=== PATIENT | male | born 1950 | race Caucasian/White ===

== ENCOUNTER 2018-08-03 01:20 | Emergency (ER) | payer MEDICARE, OTHER ==
[~2018-08-03] VITALS: Ht 190.5 cm; Wt 107.9 kg
[2018-08-03 01:39] LABS: BASO # 0.1 10^3/uL (0.0-0.2); BASO % 0.6 % (0.0-1.0); EOS # 1.5 10^3/uL (0.0-0.50); EOS % 10.2 % (0.0-3.0); HEMATOCRIT 34.6 % (42.0-52.0); HEMOGLOBIN 11.8 g/dl (13.5-17.5); LYMPH # 2.7 10^3/uL (1.5-4.5); LYMPH % 18.8 % (24.0-44.0); MEAN CORPUSCULAR HEMOGLOBIN 29.4 pg (27.0-33.0); MEAN CORPUSCULAR HGB CONC 34.1 g/dl (32.0-36.5); MEAN CORPUSCULAR VOLUME 86.1 fl (80.0-96.0); MONO # 1.3 10^3/uL (0.0-0.8); MONO % 8.8 % (0.0-5.0); NEUTROPHILS # 8.6 10^3/uL (1.8-7.7); NEUTROPHILS % 60.1 % (36.0-66.0); PLATELET COUNT, AUTOMATED 248 10^3/uL (150-450); RED BLOOD COUNT 4.02 10^6/uL (4.30-6.10); WHITE BLOOD COUNT 14.3 10^3/uL (4.0-10.0)
[2018-08-03] MEDS ORDERED: FERR325T3 PO (01:46)
[2018-08-03] MEDS ORDERED: DOXY-350 PO (01:46)
[2018-08-03] MEDS ORDERED: VITA200016 PO (01:46)
[2018-08-03] MEDS ORDERED: ECOT81TA5 PO (01:46)
[2018-08-03] MEDS ORDERED: HYDR12.55 PO (01:46)
[2018-08-03] MEDS ORDERED: PROTPAK PO (01:46)
[2018-08-03] MEDS ORDERED: GLIP10TA PO (01:46)
[2018-08-03] MEDS ORDERED: METF10004 PO (01:46)
[2018-08-03] MEDS ORDERED: SING10TA32 PO (01:46)
[2018-08-03] MEDS ORDERED: ALBU83IN INH (01:46)
[2018-08-03] MEDS ORDERED: NITR4TASL SL (01:46)
[2018-08-03] MEDS ORDERED: CRES10TA32 PO (01:46)
[2018-08-03] MEDS ORDERED: ALTA1CAP3 PO (01:46)
[2018-08-03 01:49] LABS: INR 1.02; PROTHROMBIN TIME 13.5 SECONDS (12.1-14.4)
[2018-08-03 01:51] LABS: D-DIMER QUANT 390.48 ng/ml (<500)
[2018-08-03] MEDS ORDERED: ISOVUE-370 76% 100ML VIAL (Q9967) As Ordered ONE (02:10)
[2018-08-03] MEDS ORDERED: fentaNYL 100 MCG/2 ML INJECTION (J3010) IV ONE (02:15)
[2018-08-03] MEDS ORDERED: hydrALAZINE INJ 20 MG/ML VIAL IV ONE (02:15)
[2018-08-03] MEDS ORDERED: NS 1,000 ML IV ONE (02:15)
[2018-08-03 02:40] LABS: ALBUMIN 3.4 GM/DL (3.2-5.2); ALT/SGPT 28 U/L (12-78); BILIRUBIN,TOTAL 0.3 MG/DL (0.2-1.0); BLOOD UREA NITROGEN 30 MG/DL (7-18); CALCIUM LEVEL 10.4 MG/DL (8.8-10.2); CARBON DIOXIDE LEVEL 25 MEQ/L (21-32); CHLORIDE LEVEL 96 MEQ/L (98-107); CPK CREATINE PHOSPHOKINASE 41 U/L (39-308); CREATININE FOR GFR 1.56 MG/DL (0.70-1.30); GLOMERULAR FILTRATION RATE 47.6 (>49); GLUCOSE, FASTING 344 MG/DL (70-100); LIPASE 254 U/L (73-393); MB/CK RELATIVE INDEX 3.41 (< OR =4); POTASSIUM SERUM 4.6 MEQ/L (3.5-5.1); SODIUM LEVEL 135 MEQ/L (136-145); TOTAL PROTEIN 7.3 GM/DL (6.4-8.2); TROPONIN I < 0.02 NG/ML (< 0.10)
--- NOTE | 2018-08-03 04:11 | REPVR ---
EXAM: CT Abdomen and Pelvis With Contrast EXAM DATE/TIME: 08/03/2018 2:03 AM CLINICAL HISTORY: 67 years old, male; Pain; Abdominal pain; Generalized; Additional info: Chest/abd pain, HX of aaa TECHNIQUE: Axial computed tomography images of the abdomen and pelvis with intravenous contrast. All CT scans at this facility use at least one of these dose optimization techniques: automated exposure control; mA and/or kV adjustment per patient size (includes targeted exams where dose is matched to clinical indication); or iterative reconstruction. Coronal and sagittal reformatted images were created and reviewed. MIP reconstructed images were created and reviewed. CONTRAST: 100 ml of iso administered intravenously. COMPARISON: CT ABD PELVIS W/O CONTRAST 04/10/2016 10:45 PM FINDINGS: Lower thorax: There is mild patchy ground glass opacity in the visualized lung bases, similar to the prior exam. There is patchy peripheral density and interstitial thickening anteriorly in both lung bases, without significant change from the prior exam. ABDOMEN: Liver: There are no focal liver lesions present. Gallbladder and bile ducts: The gallbladder is normal with no stones or biliary ductal dilation. Pancreas: The pancreas is normal with no ductal dilation. Spleen: The spleen demonstrates punctate calcifications, consistent with remote granulomatous organism exposure. Adrenals: The adrenal glands are normal. Kidneys and ureters: There is an exophytic 2.2 cm cyst at the left kidney midpole, unchanged. There is a 3.7 cm cyst left kidney lower pole, increased in size from 3.2 cm. Additional smaller cysts are seen in both kidneys. There are no ureteral stones or hydronephrosis. Stomach and bowel: Mild diverticulosis is present in the sigmoid and descending colon. There is no dilation or thickening of the colon. The small bowel appears unremarkable. Appendix: A normal appendix is identified. PELVIS: Bladder: The bladder is normal. Reproductive: The prostate gland and seminal vesicles are normal. ABDOMEN and PELVIS: Intraperitoneal space: There is no evidence of free intraperitoneal or pelvic fluid. There is no free intraperitoneal air. Bones/joints: Mild degenerative endplate changes are noted in the visualized spine. No suspicious osseous lesions. No acute fractures or dislocations. Soft tissues: Unremarkable. Vasculature: The aorta demonstrates severe atherosclerotic calcification. There is mild dilation of the abdominal aorta at the level of the renal arteries, measuring 3.0 cm which is unchanged. Just above the bifurcation, there is a second relative dilation with the aorta measuring 2.9 cm at this level, unchanged. Lymph nodes: No lymphadenopathy is seen. IMPRESSION: 1. Extensive atherosclerotic disease. 2 sites of mild dilation of the infrarenal abdominal aorta, measuring up to 3.0 cm, without significant change compared to 2016. 2. No acute abnormality identified. COMMENT: Consistent with the [employer]'s Incidental Findings Committee Report (J Am Lawanda Radiol 2010): Unless the patient's specific circumstances suggest otherwise, any liver lesion 0.5 cm or less, any cystic kidney lesion less than 1.0 cm, and/or any adrenal lesion 1.0 cm or less not otherwise characterized in this report as possessing suspicious or indeterminate imaging features is/are highly likely to be benign and do not require follow-up imaging or biopsy. Electronically signed by: Racheal Mcgarry On 08/03/2018 04:10:59 AM
[2018-08-03] MEDS ORDERED: GI COCKTAIL 50ML BTL(HYOSCYAMINE/MAALOX/LIDOCAINE VISCOUS)(1:3:1) PO ONE (04:15)
--- NOTE | 2018-08-03 04:18 | REPVR ---
EXAM: CT Angiography Chest With Contrast EXAM DATE/TIME: 08/03/2018 2:03 AM CLINICAL HISTORY: 67 years old, male; Pain; Chest pain; Type not specified; Additional info: Chest/abd pain, HX of aaa TECHNIQUE: Axial computed tomographic angiography images of the chest with intravenous contrast using CT angiography protocol. All CT scans at this facility use at least one of these dose optimization techniques: automated exposure control; mA and/or kV adjustment per patient size (includes targeted exams where dose is matched to clinical indication); or iterative reconstruction. Coronal and sagittal reformatted images were created and reviewed. MIP reconstructed images were created and reviewed. CONTRAST: 100 ml of iso administered intravenously. COMPARISON: CT ABD PELVIS W/O CONTRAST 04/10/2016 10:45:14 PM FINDINGS: Pulmonary arteries: The pulmonary arteries demonstrate mild central enlargement, consistent with mild pulmonary hypertension. The pulmonary trunk measures 3.4 cm in diameter. No filling defects are seen to indicate an acute pulmonary embolism. Aorta: The aorta demonstrates moderate atherosclerotic calcification. There is no thoracic aortic aneurysm or evidence of dissection. Lungs: There is mild paraseptal emphysema visible in the upper lobes. There is patchy ground glass opacity through the lung bases which may be due to air-trapping causing relative lucency or to a mild pneumonitis. The appearance is similar to the images of the chest from the CT scan of the abdomen and pelvis of March,. There are increased reticulations and mild peripheral density in the right middle lobe, inferior lingula, and anterolateral aspect of the right lower lobe at the lung bases, which are unchanged from the prior exam, and probably postinflammatory in nature. Pleural space: There are no pleural effusions present. Heart: The heart is normal in size. Lymph nodes: No lymphadenopathy is seen. Bones/joints: Mild degenerative endplate changes are noted in the visualized spine. No suspicious osseous lesions. No acute fractures or dislocations. Soft tissues: Unremarkable. IMPRESSION: 1. Atherosclerotic changes of the thoracic aorta, but no evidence of aortic aneurysm or dissection. 2. Mild paraseptal emphysema. Patchy groundglass opacity through the lung bases may be related to air trapping or mild pneumonitis, and appears similar to 2016. 3. Peripheral increased reticulations and mild peripheral density in both lung bases are unchanged, and probably postinflammatory in nature. 4. Mild enlargement of the central pulmonary arteries, consistent with mild pulmonary hypertension. Electronically signed by: Racheal Mcgarry On 08/03/2018 04:17:55 AM
[2018-08-03] MEDS ORDERED: SUCRALFATE 1 GM TAB PO ONE (05:15)
[2018-08-03] MEDS ORDERED: PANTOPRAZOLE 40MG INJ (PROTONIX) (C9113) IV ONE (05:15)
[2018-08-03] MEDS ORDERED: FAMOTIDINE INJ 20MG/2ML VIAL (S0028) IVP ONE (05:15)
[2018-08-03] MEDS ORDERED: MORPHINE 4 MG/ML 1ML VIAL/SYRINGE (J2270) IV PRN (05:15)
[2018-08-03 06:00] VITALS: BP 146/78
[2018-08-03] MEDS ORDERED: CARA1TAB6 PO (06:19)
[2018-08-03] MEDS ORDERED: PEPC1TAB5 PO (06:19)
--- NOTE | 2018-08-03 07:07 | ED PDOC ---
Post-Departure Follow-Up dr chavez faxed formal report of cta for fu mlg/. also ct abd/p for fu mlg Sushma Espinoza MD Aug 03, 2018 07:07
--- NOTE | 2018-08-03 20:05 | ECGEPIP ---
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
== END 2018-08-03 06:53 | disposition home or self-care (01) ==
LOC: M ED 01:20
DX: R10.13 Epigastric pain (principal); R93.1 Abnormal findings on diagnostic imaging of heart and coronary circulation; R91.8 Other nonspecific abnormal finding of lung field; I25.10 Atherosclerotic heart disease of native coronary artery without angina pectoris; E11.9 Type 2 diabetes mellitus without complications; I10 Essential (primary) hypertension; J44.9 Chronic obstructive pulmonary disease, unspecified; I71.4 Abdominal aortic aneurysm, without rupture; J30.2 Other seasonal allergic rhinitis; Z87.891 Personal history of nicotine dependence; Z79.84 Long term (current) use of oral hypoglycemic drugs; Z79.899 Other long term (current) drug therapy

== ENCOUNTER 2018-08-05 05:27 | Inpatient (IN) | payer MEDICARE, OTHER ==
[~2018-08-05] VITALS: Ht 190.5 cm; Wt 109.9 kg
[~2018-08-05 05:27] MED LIST: ALBU83IN INH; ALTA1CAP3 PO; CARA1TAB6 PO; CRES10TA32 PO; DOXY-350 PO; ECOT81TA5 PO; FERR325T3 PO; GLIP10TA PO; HYDR12.55 PO; METF10004 PO; NITR4TASL SL; PEPC1TAB5 PO; PROTPAK PO; SING10TA32 PO; VITA200016 PO
[2018-08-05 05:51] LABS: BASO # 0.1 10^3/uL (0.0-0.2); BASO % 0.5 % (0.0-1.0); EOS # 1.1 10^3/uL (0.0-0.50); EOS % 8.6 % (0.0-3.0); HEMATOCRIT 35.9 % (42.0-52.0); HEMOGLOBIN 12.1 g/dl (13.5-17.5); LYMPH % 15.1 % (24.0-44.0); MEAN CORPUSCULAR HGB CONC 33.7 g/dl (32.0-36.5); MEAN CORPUSCULAR VOLUME 86.1 fl (80.0-96.0); MONO # 1.2 10^3/uL (0.0-0.8); MONO % 9.1 % (0.0-5.0); NEUTROPHILS # 8.7 10^3/uL (1.8-7.7); NEUTROPHILS % 65.9 % (36.0-66.0); PLATELET COUNT, AUTOMATED 235 10^3/uL (150-450); RED BLOOD COUNT 4.17 10^6/uL (4.30-6.10); WHITE BLOOD COUNT 13.1 10^3/uL (4.0-10.0)
[2018-08-05 06:24] LABS: BLOOD UREA NITROGEN 23 MG/DL (7-18); CALCIUM LEVEL 9.7 MG/DL (8.8-10.2); CARBON DIOXIDE LEVEL 23 MEQ/L (21-32); CHLORIDE LEVEL 98 MEQ/L (98-107); CPK CREATINE PHOSPHOKINASE 29 U/L (39-308); CREATININE FOR GFR 1.35 MG/DL (0.70-1.30); GLOMERULAR FILTRATION RATE 56.3 (>49); GLUCOSE, FASTING 354 MG/DL (70-100); MB/CK RELATIVE INDEX 3.79 (< OR =4); POTASSIUM SERUM 4.6 MEQ/L (3.5-5.1); SODIUM LEVEL 131 MEQ/L (136-145); TROPONIN I < 0.02 NG/ML (< 0.10)
[2018-08-05] MEDS ORDERED: ONDANSETRON 4MG/2ML VIAL (J2405) IV ONE ×2 (07:15→16:45)
[2018-08-05] MEDS: MORPHINE 4 MG/ML 1ML VIAL/SYRINGE (J2270) IV PRN ×2 (07:20→10:31)
[2018-08-05] MEDS: NS 1,000 ML IV SCH ×3 (07:20→22:13)
[2018-08-05 07:28] LABS: ALBUMIN 3.5 GM/DL (3.2-5.2); ALT/SGPT 26 U/L (12-78); BILIRUBIN,DIRECT 0.1 MG/DL (0.0-0.2); BILIRUBIN,TOTAL 0.4 MG/DL (0.2-1.0); TOTAL PROTEIN 7.6 GM/DL (6.4-8.2)
[2018-08-05] MEDS: GASTROGRAFIN SOLUTION 30ML PO SCH ×2 (09:05→09:30)
[2018-08-05] MEDS ORDERED: ISOVUE-370 76% 100ML VIAL (Q9967) As Ordered ONE (10:04)
--- NOTE | 2018-08-05 10:51 | REP ---
Clinical: Acute chest pain and shortness of breath . Technique: Axial contrast enhanced images from the thoracic inlet to the upper abdomen using 100 ml Isovue 370 intravenous contrast material with coronal and sagittal re-formations. Findings: Suboptimal enhancement of the pulmonary vasculature is achieved, but no obvious filling defects are identified to suggest pulmonary embolus. Atherosclerotic changes to the thoracic aorta and coronary arteries noted without aortic aneurysm/dissection or cardiomegaly. No pericardial effusion. Bilateral lung barraza demonstrate mild, but increased patchy ground-glass opacities which may reflect elements of air trapping and early pneumonitis. No focal consolidation. Scattered chronic interstitial changes with minimal scattered scarring remains stable. No significant adenopathy. No pleural effusion. No pneumothorax. Impression: 1. No evidence for pulmonary embolus. 2. Patchy ground-glass opacities minimally increased from prior examination which may reflect early acute pneumonitis. 3. Chronic stable changes. Electronically Signed by Ramiro Michel MD 08/05/2018 10:42 A
--- NOTE | 2018-08-05 10:55 | REP ---
Clinical: Abdominal pain. Technique: Axial contrast enhanced images from the lung bases to the pubic symphysis using oral (per protocol) and 100 ml Isovue 370 intravenous contrast material with coronal and sagittal re-formations. Comparison: 08/03/2018 Findings: Lung bases demonstrate chronic interstitial changes and elements of scattered scarring / fibrosis with mild bronchiectasis and emphysematous change. Diffuse fatty infiltration to the liver noted. Chronic splenic parenchymal calcifications consistent with prior granulomas disease. Pancreas, bilateral adrenal glands and kidneys are relatively normal / stable. Bilateral renal cysts and mild chronic perinephric stranding remains unchanged. No hydronephrosis or nephrolithiasis. The gallbladder is moderately distended and mild pericholecystic stranding suggest the possibility of acute cholecystitis and correlation is recommended. The enteric system is without obstruction or acute inflammatory process. Moderate fecal stasis suggested. Normal terminal ileum and appendix identified in the right lower quadrant. Scattered colonic and sigmoid diverticulosis without acute diverticulitis. Pelvis demonstrates collapsed bladder and age appropriate prostate/seminal vesicles. No ascites. No obvious adenopathy. No free air. Atherosclerotic changes of the aorta and vasculature without aneurysm or dissection. Musculoskeletal structures intact. Impression: 1. Distended gallbladder with a mild pericholecystic stranding raises the possibility of acute cholecystitis and correlation is required. 2. Hepatic steatosis. 3. Diverticulosis without acute diverticulitis. 4. Further chronic stable changes as described above. Electronically Signed by Ramiro Michel MD 08/05/2018 10:45 A
[2018-08-05] MEDS: HYDROMORPHONE HCL 0.5 MG/ 0.5 ML SYRINGE (J1170 PER 1) IV PRN ×3 (12:10→22:38)
--- NOTE | 2018-08-05 12:28 | REP ---
Clinical: Right upper quadrant pain. Technique: Real time piña scale ultrasound examination using curved array transducer. Findings: The gallbladder is hydropic with mild wall thickening to approximately 4.5 mm and includes multiple gallstones and layering sludge. Sonographic Robledo's sign was not elicited and findings are compatible with acute cholecystitis. The common bile duct is dilated to 9.4 mm. Diffuse fatty infiltration to the liver noted without focal hepatic lesion. Pancreas is unremarkable. Right kidney is normal in reniform shape without hydronephrosis and measures 12.3 x 6.9 x 5.2 cm. No ascites. Impression: Findings most compatible with acute cholecystitis. Electronically Signed by Ramiro Michel MD 08/05/2018 12:20 P
[2018-08-05] MEDS ORDERED: PIPERACILLIN/TAZOBACTAM SOD 3.375 GM in D5W MINI-BAG PLUS 50 ML IV ONE (12:30)
[2018-08-05] MEDS ORDERED: PANT40TA3 PO (13:09)
[2018-08-05] MEDS ORDERED: GLIP1TAB51 PO (13:09)
[2018-08-05] MEDS ORDERED: VENTAER INH (13:09)
[2018-08-05] MEDS ORDERED: HYDR25TAB PO (13:09)
[2018-08-05] MEDS ORDERED: METF-839 PO (13:09)
[2018-08-05] MEDS ORDERED: PEPC1TAB5 PO (13:10)
[2018-08-05] MEDS ORDERED: HYDROMORPHONE HCL 0.5 MG/ 0.5 ML SYRINGE (J1170 PER 1) IV PRN (16:30)
--- NOTE | 2018-08-05 17:19 | REP ---
Clinical: Acute cholecystitis and extrahepatic biliary ductal dilatation. Technique: Standard noncontrast MRCP sequencing. Findings: Distended gallbladder with mild gallbladder wall thickening, pericholecystic stranding, and layering sludge is identified. Very subtle intraluminal filling defect(s) within the common bile duct cannot be excluded and may represent small amount of biliary sludge. The common bile duct is minimally dilated to 8 mm and there is no evidence for intrahepatic ductal dilatation. Simple appearing bilateral renal cysts measure up to 2 cm inferior pole right kidney and 3.4 cm inferior pole left kidney. Impression: Findings described above consistent with acute cholecystitis including small amount of intraluminal sludge suggested in the common bile duct. Electronically Signed by Ramiro Michel MD 08/05/2018 05:11 P
[2018-08-05] MEDS ORDERED: DEXTROSE 50% 50 ML SYRINGE IV PRN (19:30)
[2018-08-05] MEDS ORDERED: ONDANSETRON 4MG/2ML VIAL (J2405) IV PRN (19:30)
[2018-08-05] MEDS ORDERED: PROMETHAZINE INJ 25 MG/ML VIAL (J2550) IV PRN (19:30)
[2018-08-05] MEDS ORDERED: cefTRIAXone SOD 1 GM in D5W MINI-BAG PLUS 50 ML IV ONE (19:30)
[2018-08-05] MEDS ORDERED: GLUCAGON FOR INJ 1 MG VIAL (J1610) SC PRN (19:30)
[2018-08-05] MEDS ORDERED: ACETAMINOPHEN TAB 650MG DOSE (2X325MG) PO PRN (19:30)
[2018-08-05] MEDS ORDERED: METOCLOPRAMIDE INJ 10MG/2ML VIAL (J2765) IV PRN (19:30)
[2018-08-05] MEDS ORDERED: GLUCOSE 4 GM CHEW TABLET PO PRN (19:30)
[2018-08-05 22:00] VITALS: BP 152/70
[2018-08-05] MEDS: PIPERACILLIN/TAZOBACTAM SOD 3.375 GM in D5W MINI-BAG PLUS 50 ML IV SCH (22:21)
[2018-08-05] MEDS: HumaLOG INSULIN (NovoLOG) PER UNIT SC SCH (22:28)
[2018-08-05] MEDS: SUCRALFATE 1 GM TAB PO SCH ×2 (22:36→22:52)
[2018-08-05] MEDS: MONTELUKAST 10 MG TAB PO SCH (22:36)
[2018-08-05] MEDS: RAMIPRIL 5 MG CAP PO SCH (22:37)
[2018-08-05] MEDS: PANTOPRAZOLE 40MG INJ (PROTONIX) (C9113) IV SCH (23:21)
[2018-08-05] MEDS: IPRATROPIUM 0.5MG/ALBUTEROL 2.5MG INH SOL UD 3ML (DUONEB)(J7620) NEB SCH (23:44)
[2018-08-06] MEDS: PIPERACILLIN/TAZOBACTAM SOD 3.375 GM in D5W MINI-BAG PLUS 50 ML IV SCH ×4 (01:29→20:58)
[2018-08-06] MEDS: HumaLOG INSULIN (NovoLOG) PER UNIT SC SCH ×5 (01:30→17:37)
[2018-08-06 02:00] VITALS: BP 142/83
[2018-08-06] MEDS: NS 1,000 ML IV SCH ×3 (03:24→19:24)
[2018-08-06] MEDS: HYDROMORPHONE HCL 0.5 MG/ 0.5 ML SYRINGE (J1170 PER 1) IV PRN ×5 (03:43→22:05)
--- NOTE | 2018-08-06 05:42 | ECGEPIP ---
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
[2018-08-06 05:49] LABS: HEMATOCRIT 32.1 % (42.0-52.0); HEMOGLOBIN 10.6 g/dl (13.5-17.5); MEAN CORPUSCULAR HEMOGLOBIN 28.2 pg (27.0-33.0); MEAN CORPUSCULAR VOLUME 85.4 fl (80.0-96.0); PLATELET COUNT, AUTOMATED 199 10^3/uL (150-450); RED BLOOD COUNT 3.76 10^6/uL (4.30-6.10); WHITE BLOOD COUNT 13.7 10^3/uL (4.0-10.0)
[2018-08-06 06:00] VITALS: BP 118/63
[2018-08-06 06:15] LABS: BLOOD UREA NITROGEN 16 MG/DL (7-18); CALCIUM LEVEL 8.4 MG/DL (8.8-10.2); CARBON DIOXIDE LEVEL 25 MEQ/L (21-32); CHLORIDE LEVEL 98 MEQ/L (98-107); CREATININE FOR GFR 1.25 MG/DL (0.70-1.30); GLOMERULAR FILTRATION RATE > 60.0 (>49); GLUCOSE, FASTING 220 MG/DL (70-100); POTASSIUM SERUM 4.4 MEQ/L (3.5-5.1); SODIUM LEVEL 131 MEQ/L (136-145)
[2018-08-06 06:21] LABS: ALBUMIN 2.7 GM/DL (3.2-5.2); ALT/SGPT 153 U/L (12-78); BLOOD UREA NITROGEN 17 MG/DL (7-18); CALCIUM LEVEL 8.4 MG/DL (8.8-10.2); CARBON DIOXIDE LEVEL 24 MEQ/L (21-32); CHLORIDE LEVEL 99 MEQ/L (98-107); CREATININE FOR GFR 1.25 MG/DL (0.70-1.30); GLOMERULAR FILTRATION RATE > 60.0 (>49); GLUCOSE, FASTING 210 MG/DL (70-100); LIPASE 184 U/L (73-393); POTASSIUM SERUM 4.7 MEQ/L (3.5-5.1); SODIUM LEVEL 132 MEQ/L (136-145); TOTAL PROTEIN 6.4 GM/DL (6.4-8.2)
[2018-08-06] MEDS: MONTELUKAST 10 MG TAB PO SCH (07:52)
[2018-08-06] MEDS: PANTOPRAZOLE 40MG INJ (PROTONIX) (C9113) IV SCH (07:52)
[2018-08-06] MEDS: SUCRALFATE 1 GM TAB PO SCH ×4 (07:52→20:58)
[2018-08-06] MEDS: RAMIPRIL 5 MG CAP PO SCH (07:52)
[2018-08-06] MEDS: IPRATROPIUM 0.5MG/ALBUTEROL 2.5MG INH SOL UD 3ML (DUONEB)(J7620) NEB SCH ×4 (08:00→21:27)
[2018-08-06 10:00] VITALS: BP 125/82
--- NOTE | 2018-08-06 11:10 | HPE ---
DATE OF ADMISSION: 08/05/2018 CHIEF COMPLAINT: Right upper quadrant pain. BRIEF HISTORY OF PRESENT ILLNESS: The patient is a 67-year-old male who since early July has been having some right upper quadrant pain and difficulties with some occasional shortness of breath and also some gastrointestinal (GI) distress with some nausea at times, increasing reflux symptoms and from his standpoint was seen a couple days ago in the emergency room and was diagnosed with dyspepsia. The imaging at that time revealed no other significant abnormality and he was worked up from a respiratory standpoint given the pain in the right upper quadrant radiating to mostly he had described in the ribs when he was seen a few days ago and was difficult taking a deep breath in. The CAT scan was an angio of his chest and did reveal the gallbladder area and in retrospect I wonder if there is some minimal gallbladder wall thickening at that original visit. His white count was elevated at that time of 14,000 and he was treated empirically for some gastritis issues and GI distress. He returns 2 days later with persistence of that right sided pain but he notices that it is actually been getting worse. And he returns the emergency room without having any fevers or chills, but with persistence of that pain in the right upper quadrant and into his chest wall on the right-hand side. He essentially was admitted to the emergency room with chest symptoms. His white count is still elevated at 13,000 today. He has not had acholic stools. No bilirubinuria. No history of gallstone pancreatitis. However, with the workup of the gallbladder a gallbladder ultrasound was also performed that revealed a slightly dilated common bile duct and thus an MRCP was ordered. The MRCP showed thickening of the gallbladder wall and possible cholecystitis, however, there was some area and the distal common bile duct that it was hard to tell if there was some gravel or some debris in this area. His LFTs have been normal however, as well as his amylase, lipase. PAST MEDICAL HISTORY: Is significant for history of diabetes mellitus, history of tonsillectomy, history of aneurysm, history of chronic obstructive pulmonary artery disease (COPD), history of diabetes mellitus, diverticulitis, osteoarthritis, history of gastroesophageal reflux, history of hypercholesterolemia and hypertension. MEDICATIONS: Include: Albuterol, Pepcid, iron, glipizide, hydrochlorothiazide, nitroglycerin, pantoprazole, vitamin D, metformin and Crestor. PHYSICAL EXAM: Reveals a 67-year-old male who looks stated age. HEENT is unremarkable. Neck supple without adenopathy. Lungs are clear to auscultation without crackles, wheezes or rhonchi. Heart is regular without murmur. Abdomen is softly distended. He is tender with some guarding in the right upper quadrant with rebound. Extremities are warm, well-perfused. IMPRESSION AND PLAN: The patient has some right upper quadrant pain and tenderness all consistent with acute cholecystitis. Will keep him nothing by mouth, IV fluids, IV antibiotics and will see how he does over the ensuing 24 hours. From his standpoint will also get some liver function tests in the morning and if these LFTs are not elevated, then we will continue with antibiotic treatment. However, if they are elevated concerning for a common bile duct obstruction Dr. Leslie at [facility] stated that he would be glad to assist us with possibly proceeding with an ERCP/transfer to his service and we will get some followup labs in the morning and see where we are going with this. Otherwise the patient understands our next course of treatment at this time.
[2018-08-06 14:00] VITALS: BP 110/63
[2018-08-06 22:00] VITALS: BP 127/73
[2018-08-07] MEDS: HumaLOG INSULIN (NovoLOG) PER UNIT SC SCH ×4 (00:46→18:19)
[2018-08-07 02:00] VITALS: BP 126/78
[2018-08-07] MEDS: HYDROMORPHONE HCL 0.5 MG/ 0.5 ML SYRINGE (J1170 PER 1) IV PRN ×4 (02:36→21:53)
[2018-08-07] MEDS: NS 1,000 ML IV SCH ×3 (02:37→20:17)
[2018-08-07] MEDS: PIPERACILLIN/TAZOBACTAM SOD 3.375 GM in D5W MINI-BAG PLUS 50 ML IV SCH ×4 (02:37→20:17)
[2018-08-07 06:00] VITALS: BP 120/82
[2018-08-07 06:13] LABS: BASO % 0.1 % (0.0-1.0); EOS # 0.7 10^3/uL (0.0-0.50); EOS % 5.3 % (0.0-3.0); HEMATOCRIT 29.5 % (42.0-52.0); HEMOGLOBIN 9.7 g/dl (13.5-17.5); LYMPH # 1.5 10^3/uL (1.5-4.5); LYMPH % 11.8 % (24.0-44.0); MEAN CORPUSCULAR HEMOGLOBIN 28.8 pg (27.0-33.0); MEAN CORPUSCULAR HGB CONC 32.9 g/dl (32.0-36.5); MEAN CORPUSCULAR VOLUME 87.5 fl (80.0-96.0); MONO # 1.3 10^3/uL (0.0-0.8); MONO % 10.3 % (0.0-5.0); NEUTROPHILS # 8.8 10^3/uL (1.8-7.7); NEUTROPHILS % 71.9 % (36.0-66.0); PLATELET COUNT, AUTOMATED 177 10^3/uL (150-450); RED BLOOD COUNT 3.37 10^6/uL (4.30-6.10); WHITE BLOOD COUNT 12.2 10^3/uL (4.0-10.0)
[2018-08-07 06:40] LABS: ALBUMIN 2.4 GM/DL (3.2-5.2); ALT/SGPT 94 U/L (12-78); BILIRUBIN,TOTAL 0.8 MG/DL (0.2-1.0); BLOOD UREA NITROGEN 16 MG/DL (7-18); CALCIUM LEVEL 8.5 MG/DL (8.8-10.2); CARBON DIOXIDE LEVEL 24 MEQ/L (21-32); CHLORIDE LEVEL 103 MEQ/L (98-107); CREATININE FOR GFR 1.27 MG/DL (0.70-1.30); GLOMERULAR FILTRATION RATE > 60.0 (>49); GLUCOSE, FASTING 179 MG/DL (70-100); LIPASE 111 U/L (73-393); POTASSIUM SERUM 4.2 MEQ/L (3.5-5.1); SODIUM LEVEL 135 MEQ/L (136-145)
[2018-08-07] MEDS: IPRATROPIUM 0.5MG/ALBUTEROL 2.5MG INH SOL UD 3ML (DUONEB)(J7620) NEB SCH ×4 (07:19→20:37)
[2018-08-07] MEDS: MONTELUKAST 10 MG TAB PO SCH (07:43)
[2018-08-07] MEDS: SUCRALFATE 1 GM TAB PO SCH ×4 (07:43→20:17)
[2018-08-07] MEDS: RAMIPRIL 5 MG CAP PO SCH (07:43)
[2018-08-07] MEDS: PANTOPRAZOLE 40MG INJ (PROTONIX) (C9113) IV SCH (07:43)
[2018-08-07 10:00] VITALS: BP 140/72
[2018-08-07 14:00] VITALS: BP 160/77
--- NOTE | 2018-08-07 16:33 | IPN ---
DATE: 08/06/2018 HISTORY: The patient was admitted yesterday with findings and a history consistent with acute cholecystitis. The gallbladder was found to be thickened. was done because of an interpretation of this ultrasound as showing some mild enlargement of the common bile duct. Vaughn that he could not exclude possible, very subtle intraluminal filling defects in the common bile duct. Common bile duct was felt to be minimally dilated at 8 mm. His liver function tests yesterday however were normal. VITAL SIGNS: Show that the patient has been afebrile since admission. His pulse is in the 80s to low 90s. Blood pressure is in the normal range and his pulse oximetry on 2 liters of nasal cannula oxygen is normal. INTAKE AND OUTPUT: Is clearly not accurately recorded, though he does have adequate urine output noted. PHYSICAL EXAM: The patient is a very pleasant man lying quietly in the bed watching television. He is alert, oriented. He reports some discomfort still in the right upper quadrant, particularly with movement or cough. Heart exam shows a regular rate and rhythm. The lungs show distant breath sounds but are clear. The abdomen is not distended. He does have some bowel sounds present on auscultation. He has moderate direct tenderness in the right subcostal area about at the midclavicular line. The lower abdomen and left upper quadrant are without significant tenderness. LABORATORY STUDIES: Today show a white count of 14 with a hemoglobin of 11, hematocrit 32 and a platelet count 199,000. Chemistry profile shows a sodium of 132, potassium 4.7, chloride 99, CO2 of 24, BUN of 17, creatinine 1.25 and a glucose of 210. His total bilirubin is 1.0 with an AST of 193, ALT of 153 and an alkaline phosphatase 80. IMPRESSION: Patient has acute cholecystitis. There was a question of some minimal filling defects in the distal common bile duct. I reviewed the imaging myself and I am relatively underwhelmed by the finding. There is certainly not a definite stone and the ampule appears to taper fairly normally. He does have slight elevations of his AST and ALT today, though whether this is just from pericholecystic inflammation or represents debris in the common bile duct cannot be told. PLAN: The patient will be continued on his current antibiotic with piperacillin, tazobactam. He will be kept nothing by mouth for now with analgesics as necessary. We will reassess his laboratories in the morning. If his liver function tests are rising significantly, then an endoscopic retrograde cholangiopancreatography (ERCP) may be appropriate. If they remain at or below the number from today, then I believe we should treat this just as acute cholecystitis.
[2018-08-07 18:00] VITALS: BP 129/65
--- NOTE | 2018-08-07 18:13 | IPN ---
DATE: 08/07/2018 The patient's temperature has come down nicely. He really has not had any fevers any more, but unfortunately he is still using his pain medication and still complaining of pain. His white count has come down as well to 12.2 and his chemistries have come down as well with his AST, ALT down. Overall, he has had no nausea, no vomiting. His abdominal pain he states does not bother him unless he is moving, coughing, sneezing or actively getting up and moving around. He has not had any bowel movements. He has not had any significant shortness of breath, although he states he has been using the incentive spirometry and he has been doing well with that. He appears less short of breath than he was previously. IMPRESSION AND PLAN His abdomen is mill tender warm up on the right-hand side. I do believe that this is most likely cholecystitis. There still may have been some element of common bile duct stones but it is hard to know if these have passed on their own. I do feel starting him on some clear liquids is reasonable at this point. We will see what his LFTs do tomorrow and if he is making some good progress tomorrow will get him on a low-fat diet and then see if we can discharge him to home with plans on outpatient laparoscopic cholecystectomy He understands at this point as well that given his prolonged history with this cholecystitis and symptomatic biliary colic type of symptoms I anticipate that his gallbladder will probably be quite inflamed and adherent in there. He understands his risk of open operative intervention is higher given his history. At this point, we have discussed our current plan. He seems to be making progress. He looks better today and will start him on some clears and see how he does with this.
[2018-08-07] MEDS: DOCUSATE SODIUM 100 MG CAP PO SCH (20:16)
[2018-08-07 22:00] VITALS: BP 140/70
[2018-08-08] MEDS: HumaLOG INSULIN (NovoLOG) PER UNIT SC SCH ×4 (00:29→18:08)
[2018-08-08 02:00] VITALS: BP 142/83
[2018-08-08] MEDS: PIPERACILLIN/TAZOBACTAM SOD 3.375 GM in D5W MINI-BAG PLUS 50 ML IV SCH ×4 (02:09→20:47)
[2018-08-08] MEDS: HYDROMORPHONE HCL 0.5 MG/ 0.5 ML SYRINGE (J1170 PER 1) IV PRN ×3 (02:10→08:55)
[2018-08-08] MEDS: NS 1,000 ML IV SCH (05:55)
[2018-08-08 06:00] VITALS: BP 149/74
[2018-08-08 06:25] LABS: HEMATOCRIT 27.8 % (42.0-52.0); HEMOGLOBIN 9.1 g/dl (13.5-17.5); MEAN CORPUSCULAR HEMOGLOBIN 28.4 pg (27.0-33.0); MEAN CORPUSCULAR HGB CONC 32.7 g/dl (32.0-36.5); MEAN CORPUSCULAR VOLUME 86.9 fl (80.0-96.0); PLATELET COUNT, AUTOMATED 177 10^3/uL (150-450); WHITE BLOOD COUNT 11.1 10^3/uL (4.0-10.0)
[2018-08-08 07:22] LABS: ALBUMIN 2.3 GM/DL (3.2-5.2); ALT/SGPT 65 U/L (12-78); BILIRUBIN,TOTAL 0.8 MG/DL (0.2-1.0); BLOOD UREA NITROGEN 8 MG/DL (7-18); CALCIUM LEVEL 8.5 MG/DL (8.8-10.2); CARBON DIOXIDE LEVEL 24 MEQ/L (21-32); CHLORIDE LEVEL 103 MEQ/L (98-107); CREATININE FOR GFR 1.12 MG/DL (0.70-1.30); GLOMERULAR FILTRATION RATE > 60.0 (>49); GLUCOSE, FASTING 208 MG/DL (70-100); LIPASE 118 U/L (73-393); POTASSIUM SERUM 4.1 MEQ/L (3.5-5.1); SODIUM LEVEL 134 MEQ/L (136-145)
[2018-08-08] MEDS: IPRATROPIUM 0.5MG/ALBUTEROL 2.5MG INH SOL UD 3ML (DUONEB)(J7620) NEB SCH ×4 (07:44→21:19)
[2018-08-08] MEDS: PANTOPRAZOLE 40MG INJ (PROTONIX) (C9113) IV SCH (08:48)
[2018-08-08] MEDS: RAMIPRIL 5 MG CAP PO SCH (08:49)
[2018-08-08] MEDS: SUCRALFATE 1 GM TAB PO SCH ×4 (08:49→20:47)
[2018-08-08] MEDS: MONTELUKAST 10 MG TAB PO SCH (08:49)
[2018-08-08] MEDS: DOCUSATE SODIUM 100 MG CAP PO SCH ×2 (08:49→20:47)
[2018-08-08] MEDS ORDERED: PERCOCET 5MG/325MG TAB PO PRN (09:15)
[2018-08-08 10:00] VITALS: BP 139/67
[2018-08-08 14:00] VITALS: BP 134/69
[2018-08-08 18:00] VITALS: BP 149/73
--- NOTE | 2018-08-08 19:39 | IPN ---
DATE: 08/08/2018 The patient has had an episode of cholecystitis. Fortunately his liver function tests has come down nicely as white count is down a little bit more today. He states his pain is better as well today. He has had no fevers or chills. No nausea, no vomiting. He states his pain has been a little bit better today and more controlled. He has been on room air walking around and shortness of breath has been improving as well. 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 Patient has still an elevated white count it is hard to know if his white count was related to his cholecystitis, although all the reports have suggested mild cholecystitis and with his respiratory issues and when I looked at the CT scan he actually has some significantly diminished atelectasis and some fibrosis and on this right hand side. I am wondering if that is a component of his elevated white count as well. In any case he does have some wheezing at the bases, more so on the right than the left . IMPRESSION AND PLAN The patient has some slow but progressive improvement of his current situation. I do feel that it is reasonable to progress his diet probably tomorrow to a regular diet if he tolerates his regular diet that we will probably discharge him home on Sunday with antibiotics and follow up in a week or so with the plan for laparoscopic cholecystectomy as an outpatient. I do feel that since his respiratory issues have improved this also makes it much more reasonable for operative intervention/general anesthesia.
[2018-08-08 22:00] VITALS: BP 139/73
[2018-08-08] MEDS: PERCOCET 5MG/325MG TAB PO PRN (22:07)
[2018-08-09] VITALS (8 sets, daily range): BP systolic 116–148; BP diastolic 60–82
[2018-08-09] MEDS: HumaLOG INSULIN (NovoLOG) PER UNIT SC SCH ×4 (00:35→18:30)
[2018-08-09] MEDS: PIPERACILLIN/TAZOBACTAM SOD 3.375 GM in D5W MINI-BAG PLUS 50 ML IV SCH ×4 (02:40→20:26)
[2018-08-09] MEDS: PERCOCET 5MG/325MG TAB PO PRN ×3 (04:49→22:26)
[2018-08-09 06:13] LABS: HEMATOCRIT 29.1 % (42.0-52.0); HEMOGLOBIN 9.6 g/dl (13.5-17.5); MEAN CORPUSCULAR HEMOGLOBIN 28.3 pg (27.0-33.0); MEAN CORPUSCULAR VOLUME 85.8 fl (80.0-96.0); PLATELET COUNT, AUTOMATED 227 10^3/uL (150-450); RED BLOOD COUNT 3.39 10^6/uL (4.30-6.10); WHITE BLOOD COUNT 11.7 10^3/uL (4.0-10.0)
[2018-08-09 06:42] LABS: ALBUMIN 2.5 GM/DL (3.2-5.2); BILIRUBIN,TOTAL 1.1 MG/DL (0.2-1.0); CALCIUM LEVEL 9.2 MG/DL (8.8-10.2); CREATININE FOR GFR 1.3 MG/DL (0.70-1.30); GLOMERULAR FILTRATION RATE 58.8 (>49); POTASSIUM SERUM 3.9 MEQ/L (3.5-5.1); TOTAL PROTEIN 7.8 GM/DL (6.4-8.2)
[2018-08-09] MEDS: IPRATROPIUM 0.5MG/ALBUTEROL 2.5MG INH SOL UD 3ML (DUONEB)(J7620) NEB SCH ×4 (07:53→19:43)
[2018-08-09] MEDS: RAMIPRIL 5 MG CAP PO SCH (09:03)
[2018-08-09] MEDS: PANTOPRAZOLE 40MG INJ (PROTONIX) (C9113) IV SCH (09:05)
[2018-08-09] MEDS: SUCRALFATE 1 GM TAB PO SCH ×4 (09:05→20:26)
[2018-08-09] MEDS: DOCUSATE SODIUM 100 MG CAP PO SCH ×2 (09:21→20:27)
[2018-08-09] MEDS: MONTELUKAST 10 MG TAB PO SCH (09:22)
[2018-08-09] MEDS ORDERED: MOM 30ML SUSPENSION UDC PO ONE (11:30)
--- NOTE | 2018-08-09 11:30 | IPN ---
DATE: 08/09/2018 PROGRESS NOTE: The patient overall states that his abdominal pain is much better than it was yesterday. Now it feels much more like a pressure. Still has an elevated white count of 11.78, but overall he appears to be moving around a lot better in bed. He is not having any complaints from a gastrointestinal (GI) standpoint. No nausea, no vomiting and tolerating clear liquid diet. He has not had any bowel movements but continues to have some flatus. No nausea. His aspartate aminotransferase (AST) and alanine transaminase (ALT) have resolved and returned to normal. On his physical exam, the abdomen is softly distended. He has still some mild tenderness in the right upper quadrant but it is much better than it was previously and I feel as though we are making some progress at this time. IMPRESSION/PLAN: Patient is resolving his cholecystitis, and at this point, I would like to have him continue on IV antibiotics overnight and start him on a low-fat diet. If he tolerates this, plan on discharging him to home with oral antibiotics tomorrow with followup in a week or two in my office for reevaluation and discussion of outpatient laparoscopic cholecystectomy. He understands and will continue with current treatment at this time.
[2018-08-09] MEDS: HYDROMORPHONE HCL 0.5 MG/ 0.5 ML SYRINGE (J1170 PER 1) IV PRN (15:24)
[2018-08-10] MEDS: HumaLOG INSULIN (NovoLOG) PER UNIT SC SCH ×5 (00:22→23:20)
[2018-08-10] MEDS: HYDROMORPHONE HCL 0.5 MG/ 0.5 ML SYRINGE (J1170 PER 1) IV PRN (00:22)
[2018-08-10 01:53] VITALS: BP 134/78
[2018-08-10] MEDS: PIPERACILLIN/TAZOBACTAM SOD 3.375 GM in D5W MINI-BAG PLUS 50 ML IV SCH ×4 (02:55→20:24)
[2018-08-10] MEDS: PERCOCET 5MG/325MG TAB PO PRN ×3 (05:19→17:08)
[2018-08-10 06:00] VITALS: BP 169/89
[2018-08-10 06:52] LABS: HEMATOCRIT 27.5 % (42.0-52.0); MEAN CORPUSCULAR HEMOGLOBIN 28.8 pg (27.0-33.0); MEAN CORPUSCULAR HGB CONC 32.7 g/dl (32.0-36.5); MEAN CORPUSCULAR VOLUME 87.9 fl (80.0-96.0); PLATELET COUNT, AUTOMATED 222 10^3/uL (150-450); RED BLOOD COUNT 3.13 10^6/uL (4.30-6.10); WHITE BLOOD COUNT 7.6 10^3/uL (4.0-10.0)
[2018-08-10] MEDS: SUCRALFATE 1 GM TAB PO SCH ×4 (07:00→20:24)
[2018-08-10 07:05] LABS: ALBUMIN 2.1 GM/DL (3.2-5.2); ALT/SGPT 95 U/L (12-78); BILIRUBIN,TOTAL 1.5 MG/DL (0.2-1.0); BLOOD UREA NITROGEN 8 MG/DL (7-18); CALCIUM LEVEL 8.9 MG/DL (8.8-10.2); CARBON DIOXIDE LEVEL 25 MEQ/L (21-32); CHLORIDE LEVEL 101 MEQ/L (98-107); CREATININE FOR GFR 1.19 MG/DL (0.70-1.30); GLOMERULAR FILTRATION RATE > 60.0 (>49); GLUCOSE, FASTING 203 MG/DL (70-100); LIPASE 102 U/L (73-393); POTASSIUM SERUM 3.6 MEQ/L (3.5-5.1); SODIUM LEVEL 134 MEQ/L (136-145)
[2018-08-10] MEDS: IPRATROPIUM 0.5MG/ALBUTEROL 2.5MG INH SOL UD 3ML (DUONEB)(J7620) NEB SCH ×4 (07:42→18:28)
[2018-08-10] MEDS: PANTOPRAZOLE 40MG INJ (PROTONIX) (C9113) IV SCH (08:18)
[2018-08-10] MEDS: MONTELUKAST 10 MG TAB PO SCH (08:19)
[2018-08-10] MEDS: DOCUSATE SODIUM 100 MG CAP PO SCH ×2 (08:19→20:24)
[2018-08-10] MEDS: RAMIPRIL 5 MG CAP PO SCH (08:20)
[2018-08-10 10:00] VITALS: BP 141/79
--- NOTE | 2018-08-10 12:25 | IPNPDOC ---
Text Note Date of Service The patient was seen on 08/10/18. NOTE No acute events overnight. He did have some increase in abd pains yesterday afternoon with the soft diet, and was placed back on liquids. This am he feels much better, but is still having the same pains on the right side. No problems with fevers. Denies nausea, emesis, or weakness. VSSAF NAD abd - soft, TTP RUQ with localized guarding, no rebound, no generalized periton itis labs - below wbc - 11.7 >7.6 LFTs and bilirubin are all elevated A) 67y/o male with acute cholecystitis, and possible choledocholithiasis P) clq diet monitor labs for one more day if LFTs continue to elevate, then I will see about ERCP in house over the next couple days, otherwise I will have to transfer him will follow Earnest Grant DO VS,Myesha, I+O VS, Myesha, I+O Laboratory Tests 08/10/18 06:06 Red Blood Count 3.13 L, Mean Corpuscular Volume 87.9, Mean Corpuscular Hemoglobin 28.8, Mean Corpuscular Hemoglobin Concent 32.7, Red Cell Distribution Width 13.9, Calcium Level 8.9, Aspartate Amino Transf (AST/SGOT) 139 H, Alanine Aminotransferase (ALT/SGPT) 95 H, Alkaline Phosphatase 179 H, Total Bilirubin 1.5 H, Total Protein 7.0, Albumin 2.1 L Vital Signs Date Time Temp Pulse Resp B/P (MAP) Pulse Ox O2 Delivery O2 Flow Rate FiO2 08/10/18 11:57 18 08/10/18 10:00 96.6 80 141/79 (99) 92 Room Air 08/10/18 01:54 3.0 I&O- Last 24 Hours up to 6 AM 08/10/18 06:00 Intake Total 2236 ml Output Total 515 ml Balance 1721 ml BANG GRANT DO Aug 10, 2018 12:25
[2018-08-10 14:00] VITALS: BP 135/72
[2018-08-10 18:00] VITALS: BP 159/82
[2018-08-10 22:00] VITALS: BP 158/78
[2018-08-11] MEDS: PIPERACILLIN/TAZOBACTAM SOD 3.375 GM in D5W MINI-BAG PLUS 50 ML IV SCH ×2 (01:01→08:37)
[2018-08-11] MEDS: PERCOCET 5MG/325MG TAB PO PRN ×2 (01:02→08:29)
[2018-08-11 01:37] VITALS: BP 150/76
[2018-08-11 05:30] VITALS: BP 156/88
[2018-08-11] MEDS: HumaLOG INSULIN (NovoLOG) PER UNIT SC SCH (06:10)
[2018-08-11 06:29] LABS: HEMATOCRIT 28.8 % (42.0-52.0); HEMOGLOBIN 9.4 g/dl (13.5-17.5); MEAN CORPUSCULAR HEMOGLOBIN 28.5 pg (27.0-33.0); MEAN CORPUSCULAR HGB CONC 32.6 g/dl (32.0-36.5); MEAN CORPUSCULAR VOLUME 87.3 fl (80.0-96.0); PLATELET COUNT, AUTOMATED 261 10^3/uL (150-450); WHITE BLOOD COUNT 8.6 10^3/uL (4.0-10.0)
[2018-08-11 06:50] LABS: ALBUMIN 2.1 GM/DL (3.2-5.2); ALT/SGPT 71 U/L (12-78); BILIRUBIN,TOTAL 0.8 MG/DL (0.2-1.0); BLOOD UREA NITROGEN 7 MG/DL (7-18); CARBON DIOXIDE LEVEL 27 MEQ/L (21-32); CHLORIDE LEVEL 102 MEQ/L (98-107); CREATININE FOR GFR 1.13 MG/DL (0.70-1.30); GLOMERULAR FILTRATION RATE > 60.0 (>49); GLUCOSE, FASTING 192 MG/DL (70-100); LIPASE 88 U/L (73-393); POTASSIUM SERUM 3.9 MEQ/L (3.5-5.1); SODIUM LEVEL 135 MEQ/L (136-145)
[2018-08-11] MEDS: IPRATROPIUM 0.5MG/ALBUTEROL 2.5MG INH SOL UD 3ML (DUONEB)(J7620) NEB SCH (08:00)
[2018-08-11] MEDS: DOCUSATE SODIUM 100 MG CAP PO SCH (08:28)
[2018-08-11] MEDS: PANTOPRAZOLE 40MG INJ (PROTONIX) (C9113) IV SCH (08:28)
[2018-08-11] MEDS: MONTELUKAST 10 MG TAB PO SCH (08:28)
[2018-08-11] MEDS: SUCRALFATE 1 GM TAB PO SCH (08:28)
[2018-08-11 08:30] VITALS: BP 165/82
[2018-08-11] MEDS: RAMIPRIL 5 MG CAP PO SCH (08:30)
[2018-08-11 10:00] VITALS: BP 146/76
--- NOTE | 2018-08-11 10:18 | REP ---
Clinical: Shortness of breath . Comparison: None . Findings: The mediastinum and cardiac silhouette are stable and within normal limits for portable technique. The lung barraza without acute consolidation, effusion, or pneumothorax. Trace basilar atelectasis cannot be excluded. Skeletal structures are intact. Impression: Questionable left basilar atelectasis. Electronically Signed by Ramiro Michel MD 08/11/2018 10:09 A
[2018-08-11] MEDS ORDERED: PERCOCET PO (10:58)
== END 2018-08-11 11:30 | disposition home or self-care (01) | DRG 445 ==
LOC: M ED 05:27 → M ED INP 19:24 → M MSPAV 22:14 → M MS4PR 08-09 22:10
PROVIDERS: ADMIT Surgery; ATTEND Surgery
DX: K81.0 Acute cholecystitis (principal); J98.11 Atelectasis; I10 Essential (primary) hypertension; J44.9 Chronic obstructive pulmonary disease, unspecified; E11.9 Type 2 diabetes mellitus without complications; M19.90 Unspecified osteoarthritis, unspecified site; E78.00 Pure hypercholesterolemia, unspecified; Z79.899 Other long term (current) drug therapy; K57.30 Diverticulosis of large intestine without perforation or abscess without bleeding

== ENCOUNTER → 2018-08-19 | Outpatient (CLI) | payer MEDICARE, OTHER ==
[~2018-08-19] MED LIST changes: +GLIP10TA18 PO; +HYDR25TAB PO; +LEVA1TAB2 PO; +METF-839 PO; +PANT40TA3 PO; +PERCOCET PO; +VENTAER INH
[2018-08-19 13:35] LABS: HEMATOCRIT 36.5 % (42.0-52.0); HEMOGLOBIN 11.7 g/dl (13.5-17.5); MEAN CORPUSCULAR HEMOGLOBIN 27.9 pg (27.0-33.0); MEAN CORPUSCULAR HGB CONC 32.1 g/dl (32.0-36.5); MEAN CORPUSCULAR VOLUME 87.1 fl (80.0-96.0); PLATELET COUNT, AUTOMATED 437 10^3/uL (150-450); RED BLOOD COUNT 4.19 10^6/uL (4.30-6.10); WHITE BLOOD COUNT 13.2 10^3/uL (4.0-10.0)
[2018-08-19 13:44] LABS: ALBUMIN 3.2 GM/DL (3.2-5.2); BILIRUBIN,DIRECT 0.2 MG/DL (0.0-0.2); BILIRUBIN,TOTAL 0.3 MG/DL (0.2-1.0); TOTAL PROTEIN 8.1 GM/DL (6.4-8.2)
== END ==
LOC: M LAB 12:02
PROVIDERS: ATTEND Surgery
DX: K80.18 Calculus of gallbladder with other cholecystitis without obstruction (principal)

== ENCOUNTER → 2018-08-21 | Outpatient (CLI) | payer MEDICARE, OTHER ==
--- NOTE | 2018-08-21 11:17 | REP ---
Chest two views HISTORY: Cough Comparison: 08/11/2018 The lungs are clear. The heart is normal in size. The pulmonary vasculature is normal in appearance. The bony structure is intact. IMPRESSION: No acute disease. Electronically Signed by Lance Galaviz MD 08/21/2018 11:09 A
== END ==
LOC: M RAD 10:51
PROVIDERS: ATTEND Surgery
DX: R05 Cough (principal); Z87.01 Personal history of pneumonia (recurrent)

== ENCOUNTER 2018-08-23 10:36 | Observation (INO) | payer MEDICARE, OTHER ==
[~2018-08-23] VITALS: Ht 190.5 cm; Wt 104.9 kg
[~2018-08-23 10:36] MED LIST changes: -LEVA1TAB2 PO
[2018-08-23] MEDS ORDERED: LIDOCAINE 1% MDV 20ML VIAL As Ordered ONE (11:01)
[2018-08-23] MEDS ORDERED: NORCO, ANEXSIA 5/325MG TABLET (HYDROcodone/ACETAMINOPHEN) PO PRN (11:15)
[2018-08-23] MEDS ORDERED: GLUCOSE 4 GM CHEW TABLET PO PRN (11:15)
[2018-08-23] MEDS ORDERED: MORPHINE 4 MG/ML 1ML VIAL/SYRINGE (J2270) IV PRN (11:15)
[2018-08-23] MEDS ORDERED: IPRATROPIUM 0.5MG/ALBUTEROL 2.5MG INH SOL UD 3ML (DUONEB)(J7620) NEB PRN (11:15)
[2018-08-23] MEDS ORDERED: PROMETHAZINE INJ 25 MG/ML VIAL (J2550) IV PRN (11:15)
[2018-08-23] MEDS ORDERED: DEXTROSE 50% 50 ML SYRINGE IV PRN (11:15)
[2018-08-23] MEDS ORDERED: GLUCAGON FOR INJ 1 MG VIAL (J1610) SC PRN (11:15)
[2018-08-23] MEDS ORDERED: METOCLOPRAMIDE INJ 10MG/2ML VIAL (J2765) IV PRN (11:15)
[2018-08-23] MEDS ORDERED: ONDANSETRON 4MG/2ML VIAL (J2405) IV PRN (11:15)
[2018-08-23 14:00] VITALS: BP 130/81
[2018-08-23] MEDS ORDERED: D5W/LR 1,000 ML IV SCH (14:00)
[2018-08-23] MEDS: IPRATROPIUM 0.5MG/ALBUTEROL 2.5MG INH SOL UD 3ML (DUONEB)(J7620) NEB SCH ×2 (14:14→19:29)
[2018-08-23] MEDS ORDERED: LevoFLOXacin 500 MG TABLET PO ONE (15:00)
[2018-08-23] MEDS ORDERED: cefTRIAXone SOD 1 GM in D5W MINI-BAG PLUS 50 ML IV SCH (15:00)
[2018-08-23] MEDS: HumaLOG INSULIN (NovoLOG) PER UNIT SC SCH (18:35)
--- NOTE | 2018-08-23 19:03 | REP ---
ULTRASOUND-GUIDED CHOLECYSTOSTOMY DRAINAGE TUBE PLACEMENT The procedure was performed under the direct supervision of Dr. Rajan. The risks and benefits of the procedure were explained to the patient and informed consent was obtained. The gallbladder was localized using ultrasound guidance. The skin was prepped and draped in a sterile fashion. 1% lidocaine was used as a local anesthetic. Using ultrasound guidance and 8-[place] APDL catheter was inserted using trocar technique. 45 ml of purple colored fluid was withdrawn and sent to the lab for analysis. The catheter was affixed to the skin and a sterile dressing was applied. The catheter was connected to a gravity drainage bag. The patient tolerated the procedure well and there were no immediate complications. Reviewed by BONIFACIO Chowdary 08/23/2018 12:30 P Electronically Signed by Toñito Rajan MD 08/23/2018 06:55 P
[2018-08-23] MEDS: DOCUSATE SODIUM 100 MG CAP PO SCH (20:26)
[2018-08-23] MEDS: NORCO, ANEXSIA 5/325MG TABLET (HYDROcodone/ACETAMINOPHEN) PO PRN (20:28)
--- NOTE | 2018-08-23 20:30 | HPE ---
DATE OF ADMISSION: 08/23/2018 The patient was admitted on [facility] for a right upper quadrant pain, evidence of cholecystitis but also had bilateral lung infiltrates and a concerning possible pneumonia, had severe shortness of breath and essentially had an elevated white count of 13,000. He had no history of the acholic stools. No bilirubinuria. No gallstone pancreatitis. However, workup of the gallbladder revealed a dilated common bile duct and the magnetic resonance cholangiopancreatography (MRCP) showed some cholecystitis and a question of some gravel or debris within the ductal system. He was admitted for a few days and eventually his LFTs returned to normal and he made some big improvement. Since his discharge home after having this cholecystitis episode, he has had some persistent right upper quadrant pain, discomfort, had a white count that was elevated last week. And chest x-ray revealed no evidence of pneumonia, although had some pain with inspiration. Thus, I felt that it was probably ongoing cholecystitis and planned for a percutaneous drainage here today. PAST MEDICAL HISTORY: Significant for a history of diabetes mellitus, tonsillectomy, aneurysm, chronic obstructive pulmonary artery disease, diabetes mellitus, diverticulitis, osteoarthritis, history of gastroesophageal reflux disease, hypercholesterolemia, and hypertension. MEDICATIONS: Include albuterol, Pepcid, iron, glipizide, hydrochlorothiazide, nitroglycerin, pantoprazole, vitamin D, metformin, and Crestor. PHYSICAL EXAM: Reveals a 67-year-old male who looks stated age. HEENT is unremarkable. Neck: Supple without adenopathy. Lungs are clear to auscultation without crackles, wheezes or rhonchi. Heart is regular without murmur. Abdomen: Soft, nondistended, nontender. No guarding, no (dictation cut off). He has had a percutaneous drainage placed and is doing well with that drainage and states that his abdominal pain is completely resolved at this time. The drainage looks clear. There is not any significant inflammation. No evidence of infection from this. IMPRESSION/PLAN: The patient has evidence of right upper quadrant pain of undetermined etiology and with his elevated white count, it is concerning for ongoing cholecystitis. My impression at this point is that we will keep the cholecystostomy tube in, plan on seeing him next week, and plan on an outpatient cholangiogram to rule out any distal obstruction. If there is evidence of distal obstruction, he may need an endoscopic retrograde cholangiopancreatography (ERCP). But, we will see how he does overnight, make sure that he does not have any complications associated with his diabetic issues, his drain placement, i.e. hemorrhage, sepsis, etc. and then probable discharge in the morning.
[2018-08-23] MEDS ORDERED: HumaLOG INSULIN (NovoLOG) PER UNIT SC SCH (21:00)
[2018-08-23 22:00] VITALS: BP 131/88
[2018-08-24 02:00] VITALS: BP 128/86
[2018-08-24] MEDS: IPRATROPIUM 0.5MG/ALBUTEROL 2.5MG INH SOL UD 3ML (DUONEB)(J7620) NEB SCH ×2 (02:00→07:07)
[2018-08-24] MEDS: NORCO, ANEXSIA 5/325MG TABLET (HYDROcodone/ACETAMINOPHEN) PO PRN (04:07)
[2018-08-24 06:00] VITALS: BP 118/72
[2018-08-24] MEDS: HumaLOG INSULIN (NovoLOG) PER UNIT SC SCH ×2 (08:24→13:31)
[2018-08-24] MEDS: DOCUSATE SODIUM 100 MG CAP PO SCH (08:26)
[2018-08-24] MEDS ORDERED: PANTOPRAZOLE 40MG TAB (PROTONIX) PO SCH (09:00)
[2018-08-24] MEDS ORDERED: LEVA1TAB2 PO (11:50)
--- NOTE | 2018-08-24 11:54 | IPNPDOC ---
Subjective General Date/Time Seen The patient was seen on 08/24/18 at 11:51. Subject Chief Complaint/History The patient is a 67-year-old male admitted with a reason for visit of Cholecystitis. Patient feels a lot better after placement of cholecystotomy tube yesterday, tolerating diet. Denies any residual discomfort, nausea. Afebrile Current Medications Current Medications Current Medications Acetaminophen/ Hydrocodone Bitart ([place], Anexsia 5/325) 1 tab Q4HP PRN PO MODERATE PAIN (PS 5-7) Last administered on 08/24/18at 04:07; Start 08/23/18 at 11:15 Acetaminophen/ Hydrocodone Bitart ([place], Anexsia 5/325) 2 tab Q6HP PRN PO SEVERE PAIN (PS 8-10); Start 08/23/18 at 11:15 Albuterol/ Ipratropium (Duoneb (Ipr 0.5mg/Alb 2.5mg)) 3 ml Q2HP PRN NEB SOB/WH EEZING; Start 08/23/18 at 11:15 Albuterol/ Ipratropium (Duoneb (Ipr 0.5mg/Alb 2.5mg)) 3 ml RQ6H NEB Last administered on 08/24/18at 07:07; Start 08/23/18 at 14:00 Ceftriaxone Sodium 1 gm/ Dextrose 50 ml @ 100 mls/hr Q24H IV ; Start 08/23/18 at 15:00; Stop 08/23/18 at 15:00; Status DC Dextrose (Dextrose 50%) 25 ml ASDIRECTED PRN IV SEE LABEL COMMENTS; Start 08/23/18 at 11:15 Dextrose/Lactated Ringer's 1,000 ml @ 125 mls/hr Q8H IV ; Start 08/23/18 at 14:00; Stop 08/23/18 at 14:42; Status DC Docusate Sodium (Colace) 100 mg BID PO Last administered on 08/23/18at 20:26; Start 08/23/18 at 21:00 Glucagon (Glucagon) 1 mg ASDIRECTED PRN SC SEE LABEL COMMENTS; Start 08/23/18 at 11:15 Glucose (Glucose) 16 GM ASDIRECTED PRN PO SEE LABEL COMMENTS; Start 08/23/18 at 11:15 Insulin Human Lispro (HumaLOG INSULIN) SEE PROTOCOL TABLE AC SC Last administered on 08/24/18at 08:24; Start 08/23/18 at 17:30 Insulin Human Lispro (HumaLOG INSULIN) SEE PROTOCOL TABLE QHS SC ; Start 08/23/18 at 21:00 Metoclopramide HCl (REGLAN INJection) 10 mg Q6HP PRN IV NAUSEA OR VOMITING; Start 08/23/18 at 11:15 Morphine Sulfate (Morphine Sulfate Inj) 2 mg Q2HP PRN IV SEVERE PAIN (PS 8-10); Start 08/23/18 at 11:15; Stop 08/23/18 at 14:42; Status DC Ondansetron HCl (ZOFRAN INJection) 4 mg Q6HP PRN IV NAUSEA OR VOMITING; Start 08/23/18 at 11:15 Pantoprazole Sodium (Protonix) 40 mg DAILY PO Last administered on 08/24/18at 08:24; Start 08/24/18 at 09:00 Promethazine HCl (PHENERGAN INJection) 12.5 mg Q6HP PRN IV NAUSEA; Start 08/23/18 at 11:15 Allergies Coded Allergies: SEASONAL ALLERGIES (Verified Allergy, Unknown, 08/03/18) Objective Physical Examination Examination GENERAL APPEARANCE:comfortable. SKIN: Warm and moist. HEENT: Normocephalic, atraumatic. [place] palpebral conjunctiva, anicteric sclerae. Lips and mucosa appear moist. NECK: Supple, no thyromegaly. No obvious jugular venous distention. LUNGS: Clear to auscultation bilaterally. No wheezing appreciated. HEART: No chest wall abnormalities. Regular rate and rhythm with no murmurs appreciated. ABDOMEN: Abdomen is obese, soft, round. cholecystostomy tube with normal appearing bile in bag. Drain site dressings clean, dry. Nontender on palpation. EXTREMITIES: Extremities have no deformities. No edema identified. Vital Signs Vital Signs Date Time Temp Pulse Resp B/P (MAP) Pulse Ox O2 Delivery O2 Flow Rate FiO2 08/24/18 06:00 97.1 71 20 118/72 (87) 97 Room Air I&Os I&O- Last 24 Hours up to 6 AM 08/24/18 06:00 Intake Total 840 ml Output Total 0 ml Balance 840 ml Laboratory Data Labs 24H Laboratory Tests 2 08/23/18 17:05: Bedside Glucose (Misc Panel) 128H 08/23/18 20:23: Bedside Glucose (Misc Panel) 94 08/24/18 05:57: Bedside Glucose (Misc Panel) 257H 08/24/18 11:36: Bedside Glucose (Misc Panel) 240H Microbiology Microbiology 08/23/18 Anaerobic Culture, Received Pending 08/23/18 Gram Stain - Final, Resulted 08/23/18 Abscess Culture, Resulted Pending Impression Subacute Cholecystitis s/p percutaneous cholecystotomy tube diabetes OK to d/c home on levaquin Patient to follow with Dr. Torre next week Plan / VTE VTE Prophylaxis Ordered?: Yes CHILANGO MCKINNEY MD Aug 24, 2018 11:54
== END 2018-08-24 13:40 | disposition home or self-care (01) ==
LOC: M RADPRO 10:36 → M MS5PR 11:52
PROVIDERS: ADMIT Surgery; ATTEND Surgery
DX: K81.9 Cholecystitis, unspecified (principal); E11.9 Type 2 diabetes mellitus without complications; R06.02 Shortness of breath; J44.9 Chronic obstructive pulmonary disease, unspecified; K21.9 Gastro-esophageal reflux disease without esophagitis; I10 Essential (primary) hypertension; E78.00 Pure hypercholesterolemia, unspecified; Z79.51 Long term (current) use of inhaled steroids; Z79.84 Long term (current) use of oral hypoglycemic drugs; Z79.899 Other long term (current) drug therapy
CPT/HCPCS: 47490; 87070; 87075; 87077; 87186; 87205; 94640; G0378

== ENCOUNTER 2018-09-06 13:59 | Observation (INO) | payer MEDICARE, OTHER ==
[~2018-09-06] VITALS: Ht 190.5 cm; Wt 106.8 kg
[~2018-09-06 13:59] MED LIST changes: -CONRAY-43 43% 50ML VIAL (Q9960) As Ordered ONE; -IRON18TA PO; -JANU100T PO; -LEVO500T3 PO; -OXYC1TAB23 PO
[2018-09-06] MEDS ORDERED: NS 1,000 ML IV SCH ×2 (14:05→17:27)
[2018-09-06] MEDS: MORPHINE 4 MG/ML 1ML VIAL/SYRINGE (J2270) IV PRN ×2 (14:09→14:27)
[2018-09-06] MEDS ORDERED: ONDANSETRON 4MG/2ML VIAL (J2405) IV ONE ×2 (14:15→16:30)
[2018-09-06 14:19] LABS: HEMATOCRIT 36.1 % (42.0-52.0); HEMOGLOBIN 11.7 g/dl (13.5-17.5); MEAN CORPUSCULAR HEMOGLOBIN 27.9 pg (27.0-33.0); MEAN CORPUSCULAR HGB CONC 32.4 g/dl (32.0-36.5); PLATELET COUNT, AUTOMATED 263 10^3/uL (150-450); WHITE BLOOD COUNT 19.2 10^3/uL (4.0-10.0)
[2018-09-06 14:32] LABS: INR 1.11; PROTHROMBIN TIME 14.5 SECONDS (12.1-14.4)
[2018-09-06] MEDS: HYDROMORPHONE HCL 0.5 MG/ 0.5 ML SYRINGE (J1170 PER 1) IV PRN ×2 (14:36→15:08)
[2018-09-06 14:48] LABS: EOSINOPHILS 11 % (0-5); LYMPHOCYTES 23 % (16-52); MONOCYTES 2 % (0-8); NEUTROPHILS 64 % (35-75); PLATELET ESTIMATE NORMAL (NORMAL)
[2018-09-06 14:59] LABS: ALBUMIN 3.3 GM/DL (3.2-5.2); ALT/SGPT 24 U/L (12-78); BILIRUBIN,DIRECT < 0.1 MG/DL (0.0-0.2); BILIRUBIN,TOTAL 0.3 MG/DL (0.2-1.0); BLOOD UREA NITROGEN 12 MG/DL (7-18); CALCIUM LEVEL 9.5 MG/DL (8.8-10.2); CARBON DIOXIDE LEVEL 22 MEQ/L (21-32); CHLORIDE LEVEL 104 MEQ/L (98-107); CPK CREATINE PHOSPHOKINASE 24 U/L (39-308); CREATININE FOR GFR 1.29 MG/DL (0.70-1.30); GLOMERULAR FILTRATION RATE 59.3 (>49); GLUCOSE, FASTING 100 MG/DL (70-100); LIPASE 598 U/L (73-393); MB/CK RELATIVE INDEX 4.17 (< OR =4); POTASSIUM SERUM 3.7 MEQ/L (3.5-5.1); SODIUM LEVEL 139 MEQ/L (136-145); TOTAL PROTEIN 7.8 GM/DL (6.4-8.2); TROPONIN I < 0.02 NG/ML (< 0.10)
[2018-09-06] MEDS ORDERED: HYDROMORPHONE HCL 0.5 MG/ 0.5 ML SYRINGE (J1170 PER 1) As Ordered ONE (15:15)
[2018-09-06] MEDS ORDERED: LevoFLOXacin IV 750 MG in APPROPRIATE DILUENT 1 EA IV ONE (15:45)
[2018-09-06] MEDS ORDERED: DILUENT IV ONE (15:45)
[2018-09-06] MEDS ORDERED: NS IV ONE (15:45)
[2018-09-06 16:04] LABS: AMYLASE 82 U/L (25-115); C REACTIVE PROTEIN QUANTITATIV < 0.30 MG/DL (0.00-0.30)
[2018-09-06] MEDS ORDERED: IRON18TA PO (16:07)
[2018-09-06] MEDS ORDERED: JANU100T PO (16:07)
[2018-09-06] MEDS ORDERED: LEVO500T3 PO (16:07)
[2018-09-06] MEDS ORDERED: OXYC1TAB23 PO (16:08)
[2018-09-06] MEDS ORDERED: KETOROLAC 30 MG/ML VIAL (J1885) As Ordered ONE (16:27)
--- NOTE | 2018-09-06 16:28 | HPE ---
DATE OF ADMISSION: 09/06/2018 CHIEF COMPLAINT: Abdominal pain after cholecystostomy tube cholangiogram. BRIEF HISTORY OF PRESENT ILLNESS: The patient is a 67-year-old male who presented in July with some right upper quadrant pain evidence of cholecystitis. However, he had some liver function tests, dyspnea, chest pain and during his workup was evaluated and revealed some gallbladder wall thickening, elevated white count and was discharged home for his chest pain originally came back and with more consistent evidence of cholecystitis. However, his LFTs were significantly elevated and there was some questionable abnormality in the distal common bile duct. 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 The patient was discharged home and after he was discharged home he was seen in the office had an elevated white count and was still complaining of pain in this was over a week later and a cholecystostomy tube was placed return of bile without evidence of infection and his pain immediately resolved. Last week he was seen in the office in his cholecystostomy tube was clamped without difficulty and since that time he has been doing well until he was seen in the angio suite where he underwent fluoroscopy which revealed there may be some gravel or debris in the distal common bile duct and then developed significant epigastric pain all across his chest into his back and was brought to the emergency room for further evaluation. His workup thus far has been negative for any significant evidence of pancreatitis or gallstone pancreatitis. However, it sounds as though he obviously has a significant symptom given his cholangiogram. LABORATORY EXAMINATION: Revealed elevated white count 19,000. His liver function tests are within normal limits and his lipase is slightly elevated at 598. Initial reports suggested that he did not have pancreatitis although this is suggesting possible pancreatitis associated with gallstones or from the contrast itself. In any case, being admitted for pain control and plan for ERCP. PAST MEDICAL HISTORY: Significant for history of diabetes mellitus, history of tonsillectomy, history of aneurysm, history of chronic obstructive pulmonary disease, history of diabetes mellitus, diverticulosis, diverticulitis, osteoarthritis, history of GE reflux, history of his hypercholesterolemia, history of hypertension. MEDICATIONS: Medications include albuterol, Pepcid, iron, glipizide, hydrochlorothiazide, nitroglycerin, pantoprazole, vitamin D, metformin and Crestor. PHYSICAL EXAMINATION: Exam reveals a 67-year-old male who looks stated age. HEENT is unremarkable. Neck: Supple without adenopathy. Lungs: Clear to auscultation without crackles, wheezes or rhonchi. Heart is regular with a few irregular beats. Abdomen is soft, tender in the epigastric area in the right upper quadrant is his colostomy cholecystostomy tube in place with draining bile without significant abnormalities here. IMPRESSION AND PLAN: The patient has evidence of probable gallstone pancreatitis is most likely etiology or it can be just contrast induced pancreatitis, but with the suggestion of possible stones in the distal common bile duct. I have concerns that he may have more likely gallstone pancreatitis. Will get GI to evaluate him and make recommendations concerning ERCP. We will admit him to the floor and give him IV fluids, make him nothing by mouth and IV antibiotics. We will continue on an insulin sliding scale and keep him nothing by mouth overnight.
[2018-09-06] MEDS ORDERED: KETOROLAC 30 MG/ML VIAL (J1885) IV ONE (16:30)
[2018-09-06 17:18] LABS: INR 1.24; PARTIAL THROMBOPLASTIN TIME 26.1 SECONDS (25.4-37.6); PROTHROMBIN TIME 15.8 SECONDS (12.1-14.4)
[2018-09-06] MEDS ORDERED: PROMETHAZINE INJ 25 MG/ML VIAL (J2550) IV PRN (17:30)
[2018-09-06] MEDS ORDERED: PERCOCET 5MG/325MG TAB PO PRN (17:30)
[2018-09-06] MEDS ORDERED: HYDROMORPHONE HCL 0.5 MG/ 0.5 ML SYRINGE (J1170 PER 1) IV PRN (17:30)
[2018-09-06] MEDS ORDERED: METOCLOPRAMIDE INJ 10MG/2ML VIAL (J2765) IV PRN (17:30)
[2018-09-06] MEDS ORDERED: ONDANSETRON 4MG/2ML VIAL (J2405) IV PRN (17:30)
[2018-09-06] MEDS: HumaLOG INSULIN (NovoLOG) PER UNIT SC SCH (18:00)
[2018-09-06] MEDS ORDERED: GLUCOSE 4 GM CHEW TABLET PO PRN (20:30)
[2018-09-06] MEDS ORDERED: GLUCAGON FOR INJ 1 MG VIAL (J1610) SC PRN (20:30)
[2018-09-06] MEDS: DEXTROSE 50% 50 ML SYRINGE IV PRN ×2 (20:41→22:15)
[2018-09-06 22:00] VITALS: BP 145/75
[2018-09-06] MEDS: IPRATROPIUM 0.5MG/ALBUTEROL 2.5MG INH SOL UD 3ML (DUONEB)(J7620) NEB SCH (22:00)
[2018-09-06] MEDS: PIPERACILLIN/TAZOBACTAM SOD 3.375 GM in D5W MINI-BAG PLUS 50 ML IV SCH (22:15)
[2018-09-06] MEDS: RAMIPRIL 5 MG CAP PO SCH (22:16)
[2018-09-07] VITALS (9 sets, daily range): BP systolic 103–144; BP diastolic 59–80
[2018-09-07] MEDS: DEXTROSE 50% 50 ML SYRINGE IV PRN (00:32)
[2018-09-07] MEDS: D5W/LR 1,000 ML IV SCH ×2 (01:40→08:39)
[2018-09-07] MEDS: PIPERACILLIN/TAZOBACTAM SOD 3.375 GM in D5W MINI-BAG PLUS 50 ML IV SCH ×4 (04:37→21:08)
[2018-09-07] MEDS: HumaLOG INSULIN (NovoLOG) PER UNIT SC SCH ×5 (06:00→20:50)
[2018-09-07 07:17] LABS: HEMATOCRIT 28.9 % (42.0-52.0); MEAN CORPUSCULAR HGB CONC 31.5 g/dl (32.0-36.5); MEAN CORPUSCULAR VOLUME 88.9 fl (80.0-96.0); RED BLOOD COUNT 3.25 10^6/uL (4.30-6.10); WHITE BLOOD COUNT 9.7 10^3/uL (4.0-10.0)
[2018-09-07] MEDS: IPRATROPIUM 0.5MG/ALBUTEROL 2.5MG INH SOL UD 3ML (DUONEB)(J7620) NEB SCH ×4 (07:21→20:00)
[2018-09-07 07:27] LABS: HEMOGLOBIN 9.1 g/dl (13.5-17.5); PLATELET COUNT, AUTOMATED 150 10^3/uL (150-450)
[2018-09-07 07:41] LABS: ALBUMIN 2.9 GM/DL (3.2-5.2); BILIRUBIN,TOTAL 0.4 MG/DL (0.2-1.0); CALCIUM LEVEL 8.4 MG/DL (8.8-10.2); CREATININE FOR GFR 1.37 MG/DL (0.70-1.30); GLOMERULAR FILTRATION RATE 55.3 (>49); POTASSIUM SERUM 4.7 MEQ/L (3.5-5.1); TOTAL PROTEIN 6.2 GM/DL (6.4-8.2)
[2018-09-07] MEDS: PANTOPRAZOLE 40MG INJ (PROTONIX) (C9113) IV SCH (08:39)
[2018-09-07] MEDS: MONTELUKAST 10 MG TAB PO SCH (08:39)
[2018-09-07] MEDS: PERCOCET 5MG/325MG TAB PO PRN ×2 (08:40→17:17)
[2018-09-07] MEDS ORDERED: ISOVUE-300 61% 50ML VIAL (Q9967) As Ordered ONE (10:03)
[2018-09-07] MEDS ORDERED: ONDANSETRON 4MG/2ML VIAL (J2405) As Ordered ONE (10:36)
[2018-09-07] MEDS ORDERED: fentaNYL 100 MCG/2 ML INJECTION (J3010) As Ordered ONE (10:36)
[2018-09-07] MEDS ORDERED: ROCURONIUM BROMIDE 50 MG/5 ML VIAL As Ordered ONE (10:36)
[2018-09-07] MEDS ORDERED: MIDAZOLAM INJ 2 MG/2 ML VIAL (J2250) As Ordered ONE (10:36)
[2018-09-07] MEDS ORDERED: dexameTHASONE 4 MG/ML 1ML VIAL (J1100) As Ordered ONE (10:36)
[2018-09-07] MEDS ORDERED: LIDOCAINE 2% INJ 100 MG/5 ML SDV (FOR ANES.) As Ordered ONE (10:36)
[2018-09-07] MEDS ORDERED: PROPOFOL 200 MG/20 ML VIAL As Ordered ONE (10:36)
[2018-09-07] MEDS ORDERED: GLYCOPYRROLATE INJ 0.2 MG/ML 2 ML VIAL As Ordered ONE (11:22)
[2018-09-07] MEDS ORDERED: NEOSTIGMINE 10 MG/10 ML VIAL (J2710) As Ordered ONE (11:22)
[2018-09-07] MEDS ORDERED: PHENYLephrine HCL 500 MCG/5 ML (100MCG/ML) SYRINGE (J2370) As Ordered ONE (12:05)
[2018-09-07] MEDS ORDERED: SUCCINYLCHOLINE 100 MG/5 ML SYRINGE (J0330) As Ordered ONE (12:05)
--- NOTE | 2018-09-07 12:51 | ROOR ---
Patient Name: Serafin Collins Procedure Date: 09/07/2018 10:26 AM Date of : 1950 Age: 67 Room: Main OR Gender: Male Note Status: Finalized Procedure: ERCP Indications: Bile duct stone(s) Providers: James FIGUEROA MD Referring MD: 2. Inpatient 2. Inpatient Requesting Provider: Medicines: Monitored Anesthesia Care Complications: No immediate complications. Procedure: Pre-Anesthesia Assessment: - The heart rate, respiratory rate, oxygen saturations, blood pressure, adequacy of pulmonary ventilation, and response to care were monitored throughout the procedure. The Duodenoscope was introduced through the mouth, and advanced to the duodenum and used to inject contrast into the bile duct. The ERCP was accomplished without difficulty. The patient tolerated the procedure well. Findings: The human resources operations director film was normal. The esophagus was successfully intubated under direct vision. The scope was advanced to a normal major papilla in the descending duodenum without detailed examination of the pharynx, larynx and associated structures, and upper GI tract. The upper GI tract was grossly normal. A wire was passed into the ventral pancreatic duct. Superficial cannulation of and contrast injection into the ventral pancreatic duct was accomplished. Opacification of the entire pancreatic ductal system was successful. The entire opacified area was normal. A wire passed successfully into the entire biliary tree. The lower third of the main bile duct contained filling defect(s) thought to be a stone. Biliary sphincterotomy was made with a traction (standard) sphincterotome using ERBE electrocautery. There was no post-sphincterotomy bleeding. The biliary tree was swept with a 12 mm balloon starting at the bifurcation. One stone was removed. No stones remained. As the pancreatic duct was manipulated with a wire, a 5 F by 3 cm temporary plastic stent with a 3/4 external pigtail and no internal flaps was placed into the ventral pancreatic duct. The stent was in good position. Impression: - Choledocholithiasis was found. Complete removal was accomplished by biliary sphincterotomy and balloon sweep/extraction. - One temporary plastic stent was placed into the ventral pancreatic duct. Recommendation: - Observe patient's clinical course. - Watch for pancreatitis, bleeding, perforation, and cholangitis. - Surgical consultation for cholecystectomy at the next available appointment. - Perform a flat plate abdominal x-ray in 1 week. (to ascertain spontaneous passage of pancreatic stent). - Return to endoscopist for stent removal at I endoscopy PRN. James Figueroa MD James FIGUEROA MD 09/07/2018 12:51:08 PM This report has been signed electronically. Number of Addenda: 0 Note Initiated On: 09/07/2018 10:26 AM Estimated Blood Loss: Estimated blood loss: none.
--- NOTE | 2018-09-07 13:00 | REP ---
Clinical: ERCP. Technique: Intraoperative fluoroscopic imaging using portable C-arm technique. Findings: Multiple images from ERCP examination demonstrates a percutaneous cholecystostomy tube within the gallbladder. The common bile duct was cannulated and contrast administration demonstrates relatively normal appearance to the common bile duct, hepatic ducts and intrahepatic radicals. While relatively appropriate filling of the cystic duct and gallbladder were also noted, there appear to be filling defects in the proximal portion of the cystic duct which may cause partial obstruction and relative biliary colic. Final images demonstrate continued opacification of the common bile duct, cystic duct and intrahepatic ducts with lack of contrast opacification of the gallbladder suggesting possible decompression by the noted cholecystostomy tube. Total fluoroscopic time 2 minutes 32 seconds. Impression: Gallstones as well as small stones in the proximal cystic duct. Electronically Signed by Ramiro Michel MD 09/07/2018 12:52 P
[2018-09-07] MEDS ORDERED: fentaNYL 100 MCG/2 ML INJECTION (J3010) IV PRN (13:30)
[2018-09-07] MEDS ORDERED: PERCOCET 5MG/325MG TAB PO PRN (13:30)
[2018-09-07] MEDS ORDERED: LR 1,000 ML IV SCH ×2 (13:30→14:45)
[2018-09-07] MEDS ORDERED: ONDANSETRON 4MG/2ML VIAL (J2405) IV PRN (13:30)
[2018-09-07] MEDS: RAMIPRIL 5 MG CAP PO SCH (21:08)
[2018-09-08] VITALS (7 sets, daily range): BP systolic 117–147; BP diastolic 56–73
[2018-09-08] MEDS: PIPERACILLIN/TAZOBACTAM SOD 3.375 GM in D5W MINI-BAG PLUS 50 ML IV SCH ×3 (03:25→14:44)
[2018-09-08 06:01] LABS: BASO % 0.1 % (0.0-1.0); EOS # 0.2 10^3/uL (0.0-0.50); EOS % 2.4 % (0.0-3.0); HEMATOCRIT 29.7 % (42.0-52.0); HEMOGLOBIN 9.5 g/dl (13.5-17.5); LYMPH # 1.5 10^3/uL (1.5-4.5); LYMPH % 18.3 % (24.0-44.0); MEAN CORPUSCULAR HEMOGLOBIN 27.9 pg (27.0-33.0); MEAN CORPUSCULAR VOLUME 87.4 fl (80.0-96.0); MONO # 0.7 10^3/uL (0.0-0.8); MONO % 7.9 % (0.0-5.0); NEUTROPHILS # 5.8 10^3/uL (1.8-7.7); NEUTROPHILS % 70.6 % (36.0-66.0); PLATELET COUNT, AUTOMATED 154 10^3/uL (150-450); WHITE BLOOD COUNT 8.2 10^3/uL (4.0-10.0)
[2018-09-08 06:29] LABS: ALBUMIN 2.9 GM/DL (3.2-5.2); ALT/SGPT 17 U/L (12-78); BILIRUBIN,TOTAL 0.4 MG/DL (0.2-1.0); BLOOD UREA NITROGEN 13 MG/DL (7-18); CALCIUM LEVEL 8.8 MG/DL (8.8-10.2); CARBON DIOXIDE LEVEL 25 MEQ/L (21-32); CHLORIDE LEVEL 105 MEQ/L (98-107); CREATININE FOR GFR 1.25 MG/DL (0.70-1.30); GLOMERULAR FILTRATION RATE > 60.0 (>49); GLUCOSE, FASTING 143 MG/DL (70-100); LIPASE 400 U/L (73-393); SODIUM LEVEL 139 MEQ/L (136-145); TOTAL PROTEIN 6.8 GM/DL (6.4-8.2)
--- NOTE | 2018-09-08 07:16 | IPN ---
DATE OF SERVICE: 09/07/2018 HISTORY: The patient is a gentleman who was admitted over a month ago with gallbladder issues. He had ultimately a cholecystostomy tube placed. He was having a gallbladder study done on the and developed severe pain with injection of contrast through the cholecystostomy tube. He was noted to have a filling defect in the distal common bile duct. He was admitted by Dr. Torre and today he underwent an ERCP by Dr. Figueroa. A papillotomy was performed with removal of a stone and a temporary stent was placed in the ventral pancreatic duct. The patient was started on some clear liquids following the procedure. He has done quite well and feels very comfortable at present. Vital signs: Show that he has been afebrile today. Pulse is in the 60s to 80s and his blood pressure is normal with a normal room air sat. Intake and output shows that yesterday he had 3100 in with only 200 out. Today he has tolerated almost a liter of oral fluids that are recorded and his urine output has been 1500 mL. He had 375 mL of bile out through his cholecystostomy tube. PHYSICAL EXAMINATION: The patient is lying quietly in bed watching TV. He is alert and comfortable. Heart exam shows a regular rhythm. The abdomen is soft and nontender. He has a drain in the right side of the abdomen putting bile into a bile bag. Laboratory studies from this morning prior to the ERCP showed a white count of 10, hemoglobin 9, hematocrit of 29 and platelet count of 150,000. Chemistry profile showed a sodium of 140, potassium 4.7, chloride 107, CO2 of 24, BUN of 19, creatinine 1.4 and glucose of 104. Liver function tests were normal with a lipase back to normal at 159. IMPRESSION: The patient has done well following the ERCP with removal of the common bile duct stone. His cholecystostomy tube is draining some clear bile. PLAN: The patient has tolerated some clear liquids and I will consider advancing his diet tomorrow in the morning. He probably does not require the antibiotics he is on right now but I will also continue these until tomorrow. I will recheck his labs in the morning and stop his IV fluid.
[2018-09-08] MEDS: HumaLOG INSULIN (NovoLOG) PER UNIT SC SCH ×4 (07:30→21:00)
[2018-09-08] MEDS: IPRATROPIUM 0.5MG/ALBUTEROL 2.5MG INH SOL UD 3ML (DUONEB)(J7620) NEB SCH ×4 (08:25→19:30)
--- NOTE | 2018-09-08 09:03 | ECGEPIP ---
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
[2018-09-08] MEDS: PANTOPRAZOLE 40MG INJ (PROTONIX) (C9113) IV SCH (10:05)
[2018-09-08] MEDS: MONTELUKAST 10 MG TAB PO SCH (10:05)
[2018-09-08] MEDS: RAMIPRIL 5 MG CAP PO SCH (21:24)
[2018-09-08] MEDS: glipiZIDE XL 5 MG TABCR PO SCH (21:24)
[2018-09-09 02:00] VITALS: BP 134/69
[2018-09-09 06:00] VITALS: BP 155/78
[2018-09-09] MEDS: HumaLOG INSULIN (NovoLOG) PER UNIT SC SCH (08:06)
[2018-09-09] MEDS: glipiZIDE XL 5 MG TABCR PO SCH (08:07)
[2018-09-09] MEDS: MONTELUKAST 10 MG TAB PO SCH (08:08)
[2018-09-09] MEDS: IPRATROPIUM 0.5MG/ALBUTEROL 2.5MG INH SOL UD 3ML (DUONEB)(J7620) NEB SCH ×2 (08:14→10:55)
--- NOTE | 2018-09-09 08:37 | IPN ---
DATE: 09/08/2018 HISTORY: The patient was admitted with a common bile duct stone and underwent a ERCP yesterday by Dr. Figueroa. A definite stone was removed and a temporary pancreatic duct stent was placed. The patient has a cholecystostomy tube which is still draining clear green bile. He was started on some clear liquids yesterday. Vital signs: Show that the patient has been afebrile over the past 24 hours. His pulses in the 70s and 80s and his blood pressure is good with a normal room air oxygen saturation. Intake and output yesterday showed 1700 in with 2200 out. His cholecystostomy tube drained 675 mL yesterday. PHYSICAL EXAMINATION: The patient is lying quietly on the hospital bed. He is alert and oriented. Sclerae are anicteric. Mucous membranes are moist. Heart exam shows a regular rhythm and the lungs are clear. The abdomen is soft and without significant tenderness. He has his drain in the right upper quadrant which is draining clear bile. Laboratory studies today show a white count of 8, hemoglobin of 10, hematocrit of 30 and a platelet count of 154,000. Differential count show 71% neutrophils, 18% lymphocytes and 8% monocytes. Chemistry profile shows normal electrolytes, BUN, creatinine and a glucose of 143. Liver function tests are normal. Lipase is seven points above the normal upper limit at 400. IMPRESSION: The patient is doing very well since removal of his common bile duct stone. PLAN: I spoke with Dr. Torre today about whether he would be interested in trying to move the patient's surgery up to operate before he went home and he is concerned about possible scarring from his gallbladder inflammation from July. At this point he plans to leave him on his current schedule of September 24. The patient will be advanced to a low-fat diet and his IV will be saline locked. If the patient looks well in the morning I anticipate Dr. Torre will discharge him to followup for his surgery.
[2018-09-09] MEDS ORDERED: PANTOPRAZOLE 40MG TAB (PROTONIX) PO SCH (09:00)
[2018-09-09] MEDS ORDERED: hydroCHLOROthiazide 25 MG TAB PO SCH (09:00)
[2018-09-09 10:00] VITALS: BP 135/77
--- NOTE | 2018-09-10 20:40 | ECGEPIP ---
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
[2018-09-13] MEDS ORDERED: iron PO (13:13)
[2018-09-13] MEDS ORDERED: HYDR-3713 PO (13:13)
== END 2018-09-09 12:45 | disposition home or self-care (01) ==
LOC: M ED 13:59 → M ED INP 17:27 → M MS5PR 22:04
PROVIDERS: ADMIT Surgery; ATTEND Surgery
DX: K80.50 Calculus of bile duct without cholangitis or cholecystitis without obstruction (principal); R93.2 Abnormal findings on diagnostic imaging of liver and biliary tract; E11.9 Type 2 diabetes mellitus without complications; I10 Essential (primary) hypertension; J44.9 Chronic obstructive pulmonary disease, unspecified; R79.1 Abnormal coagulation profile; E78.5 Hyperlipidemia, unspecified; Z79.84 Long term (current) use of oral hypoglycemic drugs; Z79.899 Other long term (current) drug therapy
CPT/HCPCS: 36415; 43262; 43264; 43274; 47531; 76000; 80048; 80053; 80076; 82150; 82550; 82553; 83605; 83690; 84484; 85025; 85027; 85610; 85730; 86140; 86850; 86900; 86901; 87040; 93005; 93041; 94640; 96361; 96365; 96375; 96376; 99285; C1887; C2625; C9113; G0378; J0330; J1100; J1170; J1885; J1956; J2250; J2270; J2370; J2405; J2543; J2710; J3010; Q9960; Q9967

== ENCOUNTER → 2018-09-06 | Outpatient (CLI) | payer MEDICARE, OTHER ==
[~2018-09-06] MED LIST changes: +CONRAY-43 43% 50ML VIAL (Q9960) As Ordered ONE; +IRON18TA PO; +JANU100T PO; +LEVA1TAB2 PO; +LEVO500T3 PO; +OXYC1TAB23 PO
--- NOTE | 2018-09-06 16:33 | REP ---
CHOLANGIOGRAM The procedure was performed under the personal supervision of Dr. Rajan. The images were reviewed with Dr. Rajan. The patient had a percutaneous cholecystostomy tube placed on 08/23/2018. 50 ml of Conray 43 was injected into the existing catheter. Images demonstrate filling of the gallbladder, common bile duct and biliary tree. At the very end of the injection the patient experienced an extreme obtained. The gallbladder was immediately decompressed of contrast. The the patient continue to have pain. Dr. Torre was notified at the time of the procedure. The patient was sent to the ER. 0.6 minutes of fluoroscopy time was utilized for this procedure. Reviewed by BONIFACIO Chowdary 09/06/2018 03:46 P Electronically Signed by Toñito Rajan MD 09/06/2018 04:23 P
== END ==
LOC: M RADPRO 13:04
PROVIDERS: ATTEND Surgery
DX: K81.9 Cholecystitis, unspecified (principal)

== ENCOUNTER → 2018-09-23 | Outpatient (CLI) | payer MEDICARE, OTHER ==
[~2018-09-23] MED LIST changes: +HYDR-3713 PO; +IRON18TA PO; +JANU100T PO; +LEVO500T3 PO; +OXYC1TAB23 PO; +iron PO
--- NOTE | 2018-09-23 14:20 | REP ---
Supine abdomen single AP view: There is a pigtail catheter in the abdominal right upper quadrant. There appears to be a second drainage catheter projected over the right kidney. This could be artifact from gowning or clothing. No other radiopaque foreign bodies are identified. There was reportedly a pancreatic stent placed at [facility]. No Stent is identified in the visualized upper abdomen or within the visualized bowel loops. The bowel gas pattern is normal. Impression: Drainage catheters on the right as described. No other radiopaque foreign bodies are identified. Electronically Signed by Jose Fonseca MD 09/23/2018 02:11 P
== END ==
LOC: M RAD 11:54
PROVIDERS: ATTEND Internal Medicine Gastroenterology
DX: T18.3XXA Foreign body in small intestine, initial encounter (principal); Z96.89 Presence of other specified functional implants; Y99.8 Other external cause status; Y92.89 Other specified places as the place of occurrence of the external cause; Y93.89 Activity, other specified

== ENCOUNTER 2018-09-24 06:29 | Day surgery (SDC) | payer MEDICARE, OTHER ==
[~2018-09-24] VITALS: Ht 190.5 cm; Wt 103.9 kg
[2018-09-24] MEDS ORDERED: ceFAZolin SOD 1 GM in D5W MINI-BAG PLUS 50 ML IV ONE (07:00)
[2018-09-24] MEDS ORDERED: LR 1,000 ML IV ONE (07:00)
[2018-09-24] MEDS ORDERED: ONDANSETRON 4MG/2ML VIAL (J2405) As Ordered ONE (07:40)
[2018-09-24] MEDS ORDERED: MIDAZOLAM INJ 2 MG/2 ML VIAL (J2250) As Ordered ONE (07:40)
[2018-09-24] MEDS ORDERED: METOCLOPRAMIDE INJ 10MG/2ML VIAL (J2765) As Ordered ONE (07:40)
[2018-09-24] MEDS ORDERED: fentaNYL 100 MCG/2 ML INJECTION (J3010) As Ordered ONE ×3 (07:40→11:07)
[2018-09-24] MEDS ORDERED: LIDOCAINE 2% INJ 100 MG/5 ML SDV (FOR ANES.) As Ordered ONE (07:40)
[2018-09-24] MEDS ORDERED: ROCURONIUM BROMIDE 50 MG/5 ML VIAL As Ordered ONE (07:40)
[2018-09-24] MEDS ORDERED: PROPOFOL 200 MG/20 ML VIAL As Ordered ONE (07:40)
[2018-09-24] MEDS ORDERED: HumaLOG INSULIN (NovoLOG) PER UNIT SC ONE (08:10)
[2018-09-24] MEDS ORDERED: HumaLOG INSULIN (NovoLOG) PER UNIT As Ordered ONE (08:18)
[2018-09-24] MEDS ORDERED: CONRAY-60 60% 50ML VIAL (Q9961) As Ordered ONE (08:26)
[2018-09-24] MEDS ORDERED: BUPIVACAINE/EPIN 0.25% 30 ML VIAL As Ordered ONE (08:26)
[2018-09-24] MEDS ORDERED: GLUCAGON FOR INJ 1 MG VIAL (J1610) As Ordered ONE (08:27)
[2018-09-24] MEDS ORDERED: HYDROmorphone HCL 2 MG/ML 1ML VIAL (J1170) As Ordered ONE (10:35)
[2018-09-24] MEDS ORDERED: SUGAMMADEX SODIUM 500 MG/5 ML VIAL (BRIDION) As Ordered ONE (10:35)
[2018-09-24] MEDS ORDERED: LABETALOL HCL 100 MG/20 ML VIAL As Ordered ONE (10:35)
[2018-09-24] MEDS ORDERED: NORCO, ANEXSIA 5/325MG TABLET (HYDROcodone/ACETAMINOPHEN) As Ordered ONE (11:07)
--- NOTE | 2018-09-24 11:08 | RO ---
DATE OF PROCEDURE: 09/24/2018 PREOPERATIVE DIAGNOSIS: Recurrent episodes of cholecystitis with cholecystostomy tube placement previously. POSTOPERATIVE DIAGNOSIS: Recurrent episodes of cholecystitis with cholecystostomy tube placement previously. PROCEDURE: Laparoscopic cholecystectomy. SURGEON: Jerman Torre MD METAL FINISH INSPECTOR: Dr. White (Dr. White provided assistance with abdominal wall closure, gallbladder retraction and visualization of the gallbladder and dissection). ESTIMATED BLOOD LOSS: 50 mL. FLUIDS: Crystalloid. BRIEF PROCEDURE SUMMARY: The patient was brought to the operating, was given general anesthesia. After adequate anesthesia and preoperative antibiotics were given, the patient was prepped and draped in the usual sterile fashion. Next, a periumbilical incision was made with skin knife. The patient had a small umbilical hernia that I used as the trocar site and placed the 10 mm trocar at the umbilicus, insufflated to 15 mm of pressure. A dilating 5 mm and right upper quadrant 5 mm trocars were placed. There were some adhesions that were of the liver up against the abdominal wall. These were taken down. Omentum to the gallbladder was taken down with hook cautery as well, and eventually the gallbladder was able to be grasped, retracted superiorly and then eventually the neck of the gallbladder was visualized. The thickened peritoneum throughout this area was then taken down and eventually the neck of the gallbladder was cleared of thickened peritoneum. Laterally working myself on the posterior aspect I was able to get around almost three-quarters of the way with some blunt dissection as well as the peanut dissector, [place], etc. with slow dissection throughout this area. Then, on the medial side, the artery was seen and was able to be mobilized quite nicely and from the cystic duct itself. This was clipped after creating a window behind the neck of the gallbladder. Once this was performed, then even better visualization behind the neck of the gallbladder was appreciated. I did have to work my way down to the cystic duct and there was a small vessel, probably about 2 mm that was crossing over and up to the cystic duct itself. This was clipped and then it was better visualized posterior to the neck of the gallbladder nature I was able to get it dissected out enough so that I could visualize the cystic duct circumferentially. Then, the gallbladder was transected at the gallbladder neck/cystic duct junction and the gallbladder was taken from the gallbladder bed using electrocautery. I did enter into the gallbladder and the gallbladder was suctioned completely dry. Once this was removed in an Endo Catch bag, the right upper quadrant was copiously irrigated until clear. Good hemostasis was achieved in this area, but because of the amount of dissection that was performed I did use some Bhavana, placed this in the bed of the dissection over the area of artery and the cystic duct which was clean and dry. Then, all trocars removed under direct visualization. #0 Vicryl was used to close the fascia at the umbilicus. #4-0 Vicryl was used to close all incisions and a dry sterile was applied. The patient was awakened from his anesthesia, brought to the room awake, alert and hemodynamically stable. HARLEY
[2018-09-24] MEDS: fentaNYL 100 MCG/2 ML INJECTION (J3010) IV PRN ×2 (11:10→11:15)
[2018-09-24] MEDS ORDERED: MORPHINE 4 MG/ML 1ML VIAL/SYRINGE (J2270) IV PRN (11:15)
[2018-09-24] MEDS ORDERED: LR 1,000 ML IV SCH ×2 (11:15)
[2018-09-24] MEDS ORDERED: ONDANSETRON 4MG/2ML VIAL (J2405) IV PRN ×2 (11:15)
[2018-09-24] MEDS ORDERED: NORCO, ANEXSIA 5/325MG TABLET (HYDROcodone/ACETAMINOPHEN) PO PRN ×2 (11:15)
[2018-09-24] MEDS ORDERED: ALBUTEROL SULFATE 2.5 MG/0.5 ML INH NEB SOLN As Ordered ONE (11:19)
[2018-09-24] MEDS ORDERED: ALBUTEROL SULFATE 2.5 MG/0.5 ML INH NEB SOLN INH ONE (11:30)
[2018-09-24] MEDS ORDERED: PROMETHAZINE INJ 25 MG/ML VIAL (J2550) As Ordered ONE (11:49)
[2018-09-24] MEDS ORDERED: PROMETHAZINE INJ 25 MG/ML VIAL (J2550) IV ONE (12:00)
[2018-09-24 14:00] VITALS: BP 159/77
== END 2018-09-24 14:19 | disposition home or self-care (01) ==
LOC: M SDC 06:29
PROVIDERS: ATTEND Surgery
DX: K81.2 Acute cholecystitis with chronic cholecystitis (principal); E11.9 Type 2 diabetes mellitus without complications; R07.9 Chest pain, unspecified; G47.30 Sleep apnea, unspecified; J44.9 Chronic obstructive pulmonary disease, unspecified; I10 Essential (primary) hypertension; I71.4 Abdominal aortic aneurysm, without rupture; K21.9 Gastro-esophageal reflux disease without esophagitis; F41.9 Anxiety disorder, unspecified; Z79.51 Long term (current) use of inhaled steroids; Z79.84 Long term (current) use of oral hypoglycemic drugs; Z79.899 Other long term (current) drug therapy
CPT/HCPCS: 47562; 88304; J0690; J1170; J2250; J2405; J2765; J3010

== ENCOUNTER 2019-08-24 11:30 | Emergency (ER) | payer MEDICARE, OTHER ==
[~2019-08-24] VITALS: Ht 190.5 cm; Wt 108.0 kg
[~2019-08-24 11:30] MED LIST changes: +CRES10TA PO; -CRES10TA32 PO
[2019-08-24 12:30] LABS: BASO % 0.3 % (0.0-1.0); EOS # 1.5 10^3/uL (0.0-0.5); EOS % 13.3 % (0.0-3.0); HEMATOCRIT 36.1 % (42.0-52.0); HEMOGLOBIN 11.5 g/dl (13.5-17.5); LYMPH # 2.4 10^3/uL (1.5-5.0); LYMPH % 20.8 % (24.0-44.0); MEAN CORPUSCULAR HEMOGLOBIN 28.2 pg (27.0-33.0); MEAN CORPUSCULAR HGB CONC 31.9 g/dl (32.0-36.5); MEAN CORPUSCULAR VOLUME 88.5 fl (80.0-96.0); MONO # 0.9 10^3/uL (0.0-0.8); MONO % 7.5 % (0.0-5.0); NEUTROPHILS # 6.6 10^3/uL (1.5-8.5); NEUTROPHILS % 57.5 % (36.0-66.0); PLATELET COUNT, AUTOMATED 279 10^3/uL (150-450); RED BLOOD COUNT 4.08 10^6/uL (4.30-6.10); WHITE BLOOD COUNT 11.6 10^3/uL (4.0-10.0)
--- NOTE | 2019-08-24 12:51 | REP ---
Right lower extremity Duplex Doppler venous ultrasound: Real time compression and duplex Doppler interrogation of the right lower extremity deep venous system is performed. The right common femoral, superficial femoral and popliteal veins are fully compressible with transducer pressure and demonstrate normal spontaneous and phasic flow, without evidence of deep venous thrombosis. Impression: No evidence of deep venous thrombosis of the right lower extremity femoral popliteal venous system. Electronically Signed by Jose Amos MD 08/24/2019 12:42 P
[2019-08-24 12:59] LABS: ERYTHROCYTE SEDIMENTATION RATE 65 mm/hr (0-20)
[2019-08-24 13:02] LABS: BLOOD UREA NITROGEN 17 MG/DL (7-18); C REACTIVE PROTEIN QUANTITATIV 1.44 MG/DL (0.00-0.30); CALCIUM LEVEL 9.2 MG/DL (8.8-10.2); CARBON DIOXIDE LEVEL 27 MEQ/L (21-32); CHLORIDE LEVEL 102 MEQ/L (98-107); CREATININE FOR GFR 1.27 MG/DL (0.70-1.30); GLOMERULAR FILTRATION RATE > 60.0 (>49); GLUCOSE, FASTING 133 MG/DL (70-100); POTASSIUM SERUM 4.5 MEQ/L (3.5-5.1); SODIUM LEVEL 136 MEQ/L (136-145); URIC ACID 7.8 MG/DL (3.5-7.2)
[2019-08-24] MEDS ORDERED: COLCHICINE 0.6 MG TAB PO ONE ×2 (13:45→14:45)
--- NOTE | 2019-08-24 14:15 | REP ---
RIGHT FOOT SERIES: Four views of the right foot are performed. No acute fracture or dislocation is seen. There is moderate inferior and posterior calcaneal spurring. There is mild diffuse narrowing of interphalangeal joints. IMPRESSION: Calcaneal spurring without evidence of acute fracture, dislocation, or intrinsic bone disease. Electronically Signed by Jose Amos MD 08/25/2019 05:51 P
[2019-08-24] MEDS ORDERED: COLC1TAB13 PO (14:30)
[2019-08-24 14:45] VITALS: BP 142/67
== END 2019-08-24 14:48 | disposition home or self-care (01) ==
LOC: M ED 11:30
DX: M10.071 Idiopathic gout, right ankle and foot (principal); E11.40 Type 2 diabetes mellitus with diabetic neuropathy, unspecified; I71.4 Abdominal aortic aneurysm, without rupture; E11.9 Type 2 diabetes mellitus without complications; I10 Essential (primary) hypertension; E78.5 Hyperlipidemia, unspecified; J44.9 Chronic obstructive pulmonary disease, unspecified; J45.909 Unspecified asthma, uncomplicated; K21.9 Gastro-esophageal reflux disease without esophagitis; K57.32 Diverticulitis of large intestine without perforation or abscess without bleeding; F41.9 Anxiety disorder, unspecified; K22.70 Barrett's esophagus without dysplasia; Z87.891 Personal history of nicotine dependence; M77.31 Calcaneal spur, right foot; Z79.84 Long term (current) use of oral hypoglycemic drugs; Z79.899 Other long term (current) drug therapy; Z88.8 Allergy status to other drugs, medicaments and biological substances; J30.2 Other seasonal allergic rhinitis

== ENCOUNTER 2021-01-21 11:07 | Observation (INO) | payer MEDICARE, OTHER ==
[~2021-01-21 11:07] MED LIST changes: +COLC0.6T47 PO; +HYDR-3490 PO; -HYDR25TAB PO; +PANT40TA29 PO; -PANT40TA3 PO
[2021-01-21] MEDS ORDERED: NS 500 ML IV ONE (11:20)
[2021-01-21] MEDS ORDERED: ISOVUE-370 76% 100ML VIAL As Ordered ONE (11:25)
[2021-01-21 11:42] LABS: BASO % 0.4 % (0.0-1.0); EOS # 1.2 10^3/uL (0.0-0.5); EOS % 12.6 % (0.0-3.0); HEMATOCRIT 36.2 % (42.0-52.0); HEMOGLOBIN 11.8 g/dl (13.5-17.5); LYMPH # 2.2 10^3/uL (1.5-5.0); LYMPH % 23.8 % (24.0-44.0); MEAN CORPUSCULAR HEMOGLOBIN 28.9 pg (27.0-33.0); MEAN CORPUSCULAR HGB CONC 32.6 g/dl (32.0-36.5); MEAN CORPUSCULAR VOLUME 88.7 fl (80.0-96.0); MONO # 0.8 10^3/uL (0.0-0.8); MONO % 8.3 % (2.0-8.0); NEUTROPHILS % 54.5 % (36.0-66.0); PLATELET COUNT, AUTOMATED 253 10^3/uL (150-450); RED BLOOD COUNT 4.08 10^6/uL (4.30-6.10); WHITE BLOOD COUNT 9.2 10^3/uL (4.0-10.0)
[2021-01-21 11:46] LABS: VENOUS BASE EXCESS -1.5 (-2.0-2.0); VENOUS O2 SATURATION 63.2 % (60.0-80.0); VENOUS PARTIAL PRESSURE CO2 38.2 mmHg (38.0-50.0); VENOUS PARTIAL PRESSURE O2 31.5 mmHg (30.0-50.0); VENOUS PH 7.398 UNITS (7.330-7.430); VENOUS STANDARD HCO3 22.5 MEQ/L; VENOUS TOTAL CO2 24.2 MEQ/L (24.0-28.0)
[2021-01-21 11:55] LABS: PROTHROMBIN TIME 13.4 SECONDS (12.5-14.3)
[2021-01-21 11:56] LABS: PARTIAL THROMBOPLASTIN TIME 25.2 SECONDS (24.2-38.5)
[2021-01-21 11:58] LABS: D-DIMER QUANT 511.38 ng/ml (<500)
--- NOTE | 2021-01-21 12:02 | REP ---
INDICATION: Syncope/fall- r/o pe COMPARISON: 08/05/2018 the latest prior TECHNIQUE: CT angiography of the chest attention pulmonary arteries after the intravenous administration of 100 cc Isovue 370 FINDINGS: There is excellent visualization of the pulmonary arterial vasculature. There are no focal filling defects present that would be considered consistent with acute pulmonary emboli. The thoracic aorta is within normal limits. There is no mediastinal or hilar adenopathy. There are no pleural or pericardial effusions. The imaged upper abdomen is within normal limits. The imaged osseous structures are stable. Evaluation of the lung barraza shows stable appearing chronic changes without evidence of a new abnormal nodule, mass, or opacity. There is cylindrical bronchiectasis and some evidence of early honeycomb lung formation particularly on the right. IMPRESSION: There is no evidence of acute disease. Other findings, as described above, which may require further follow-up. <Electronically signed by Lee Kaur > 01/21/21 [id number]
--- NOTE | 2021-01-21 12:05 | REP ---
INDICATION: Syncope/near-syncope. COMPARISON: 08/21/2018. TECHNIQUE: Single portable AP view of the chest was performed. FINDINGS: There is no acute infiltrate or pulmonary edema. Lungs are clear. The heart is not significantly enlarged. The mediastinal silhouette is unremarkable. The visualized osseous structures are intact. IMPRESSION: No acute pulmonary disease. <Electronically signed by Jose Amos > 01/21/21 1209
--- NOTE | 2021-01-21 12:08 | REP ---
INDICATION: Syncope/fall. COMPARISON: Multiple the latest 08/05/2018 TECHNIQUE: Standard helical technique after the intravenous administration of 100 cc Isovue 370. No oral bowel preparatory contrast was administered prior to the exam. FINDINGS: The patient is status post cholecystectomy since the last exam. The liver, spleen, pancreas, and adrenal glands are within normal limits. There are multiple bilateral stable appearing renal cysts. No abnormal renal enhancement has developed since the last exam. There is no significant change in appearance of the abdominal aorta or para-regions. The bowel loops and the mesenteries are essentially unchanged. There is stable appearing colonic diverticulosis. There is no free fluid or free air. There is no evidence of a mass or adenopathy. Bone window technique throughout the examination shows the osseous structures to be stable. IMPRESSION: There is no evidence of acute intra-abdominal or intrapelvic disease. Findings as described above. <Electronically signed by Lee Kaur > 01/21/21 1632
--- NOTE | 2021-01-21 12:13 | REPVR ---
PROCEDURE INFORMATION: Exam: CT Cervical Spine Without Contrast Exam date and time: 01/21/2021 11:36 AM Age: 70 years old Clinical indication: Injury or trauma; Fall; Blunt trauma; Additional info: Syncope/fall TECHNIQUE: Imaging protocol: Computed tomography images of the cervical spine without contrast. Radiation optimization: All CT scans at this facility use at least one of these dose optimization techniques: automated exposure control; mA and/or kV adjustment per patient size (includes targeted exams where dose is matched to clinical indication); or iterative reconstruction. COMPARISON: No relevant prior studies available. FINDINGS: Bones/joints: There is 2 mm of grade 1 anterolisthesis of C2 with respect to C3. Normal vertebral body alignment is otherwise preserved. Vertebral body heights are within normal limits. Discs/Spinal canal/Neural foramina: No significant disc protrusion. No severe spinal canal stenosis. No significant neural foraminal narrowing. Sinuses: There is a small air-fluid level within the right sphenoid sinus. Lungs: Lung apices are normal. Soft tissues: Unremarkable. IMPRESSION: No acute fracture. Electronically signed by: Rosario Perry On 01/21/2021 12:12:46 PM
[2021-01-21] MEDS ORDERED: FERR1TAB8 PO (12:14)
[2021-01-21] MEDS ORDERED: SITA50TAB PO (12:14)
[2021-01-21] MEDS ORDERED: D31000TA2 PO (12:14)
--- NOTE | 2021-01-21 12:19 | REPVR ---
PROCEDURE INFORMATION: Exam: CT Head Without Contrast Exam date and time: 01/21/2021 11:36 AM Age: 70 years old Clinical indication: Injury or trauma; Fall; Blunt trauma (contusions or hematomas); Additional info: Syncope/fall TECHNIQUE: Imaging protocol: Computed tomography of the head without contrast. Radiation optimization: All CT scans at this facility use at least one of these dose optimization techniques: automated exposure control; mA and/or kV adjustment per patient size (includes targeted exams where dose is matched to clinical indication); or iterative reconstruction. COMPARISON: No relevant prior studies available. FINDINGS: Brain: There is no acute intracranial hemorrhage or mass effect. Moderate diffuse volume loss is within the range of normal for patient age. There are small vessel ischemic changes within the periventricular and subcortical white matter, but the normal piña-white matter delineation is maintained. Cerebral ventricles: Prominence of the ventricular system is commensurate with volume loss. Paranasal sinuses: There is a small air-fluid level within the right sphenoid sinus. Mastoid air cells: Visualized mastoid air cells are well aerated. Bones/joints: Unremarkable. No acute fracture. Soft tissues: Unremarkable. IMPRESSION: No acute hemorrhage or calvarial fracture. Electronically signed by: Rosario Perry On 01/21/2021 12:19:00 PM
[2021-01-21 13:09] LABS: BLOOD UREA NITROGEN 21 MG/DL (7-18); CARBON DIOXIDE LEVEL 25 mmol/L (20-29); CHLORIDE LEVEL 102 MEQ/L (98-107); CREATININE FOR GFR 1.32 MG/DL (0.70-1.30); GLOMERULAR FILTRATION RATE 57.3 (>49); GLUCOSE, FASTING 167 MG/DL (70-100); POTASSIUM SERUM 4.5 MEQ/L (3.5-5.1); SODIUM LEVEL 136 MEQ/L (136-145)
[2021-01-21 13:10] LABS: CALCIUM LEVEL 9.7 MG/DL (8.8-10.2); CK-MB VALUE MASS 1.4 NG/ML (<3.6); CPK CREATINE PHOSPHOKINASE 56 U/L (39-308); ETHYL ALCOHOL (ETHANOL) < 0.003 % (0.000-0.010); MAGNESIUM LEVEL 2.1 MG/DL (1.8-2.4); TROPONIN I < 0.02 NG/ML (< 0.10)
[2021-01-21] MEDS ORDERED: COMBIVENT RESPIMAT 100-20MCG INHALER 4GM INH ONE (13:20)
[2021-01-21 13:30] LABS: FREE T4 1.19 NG/DL (0.76-1.46)
[2021-01-21] MEDS ORDERED: dexameTHASONE 20MG/5ML VIAL (J1100 PER 1MG) IV ONE (13:30)
[2021-01-21] MEDS ORDERED: ACETAMINOPHEN TAB 650MG DOSE (2X325MG) PO PRN (14:15)
--- NOTE | 2021-01-21 14:28 | HPEPDOC ---
General Date of Admission Jan 21, 2021 at 14:15 Date of Service: Jan 21, 2021 Chief Complaint The patient is a 70-year-old male admitted with a reason for visit of Syncope. Source: Patient Exam Limitations: No limitations History of Present Illness Patient is 70 years old male with past medical history of type 2 diabetes, COPD with emphysema, asthma, diverticulitis, diverticulitis, hyperlipidemia presented to the hospital after syncope. Vision stated that he was working in the yard in the morning, he developed dizziness and lightheadedness and he will see his consciousness. He does not remember how long he was unconscious, no seizure-like activities has been noticed. Also patient stated that he developed intermittent chest pain without radiation, substernal for a few minutes. It was chest pain 5 out of 10. In ER patient was found to have normal vital signs, heart rate 70, no leukocytosis, lactic acid 2.4, creatinine 1.3. Multiple imaging studies were done in ER, did not reveal stroke or acute pathology. EKG did not show any acute ischemic changes Patient denies fever, chills, nausea, vomiting, diarrhea or dysuria. Home Medications Scheduled Cholecalciferol (Vitamin D3) (Vitamin D3) 1,000 Unit Tablet, 2,000 UNITS PO QHS, (Reported) Ferrous Sulfate (Ferrous Sulfate) 325 Mg Tablet, 325 MG PO QHS, (Reported) Glipizide (Glipizide ER) 10 Mg Tab, 10 MG PO BID, (Reported) Hydrochlorothiazide (Hydrochlorothiazide) 25 Mg Tab, 25 MG PO DAILY, (Reported) Metformin HCl (Metformin HCl) 500 Mg Tab, 1,000 MG PO QHS, (Reported) Montelukast Sodium (Singulair) 10 Mg Tab, 10 MG PO DAILY, (Reported) Pantoprazole Sodium (Pantoprazole Sodium) 40 Mg Tab, 40 MG PO DAILY, (Reported) Ramipril (Altace) 5 Mg Cap, 5 MG PO QHS, (Reported) Rosuvastatin Calcium (Crestor) 10 Mg Tab, 10 MG PO QHS, (Reported) Sitagliptin (Januvia) 50 Mg Tablet, 50 MG PO DAILY, (Reported) Scheduled PRN Albuterol Sulf (Albuterol Sulfate) 2.5 Mg/3 Ml Nebu, 2.5 MG INH Q4H PRN for SHORTNESS OF BREATH, (Reported) Albuterol Sulfate (Ventolin Hfa) 108 Mcg/Act Aer, 2 PUFF INH Q4H PRN for SHORTNESS OF BREATH, (Reported) Nitroglycerin (Nitrostat) 0.4 Mg Subl, 0.4 MG SL NITRO PRN for CHEST PAIN, (Reported) Allergies Coded Allergies: SEASONAL ALLERGIES (Verified Allergy, Unknown, 09/13/18) prednisone (Verified Adverse Reaction, Mild, SHORTNESS OF BREATH, 08/24/19) Past Medical History Medical History Significant for history of diabetes mellitus, history of aneurysm, history of chronic obstructive pulmonary disease, history of diabetes mellitus, diverticulosis, diverticulitis, osteoarthritis, history of GE reflux, history of his hypercholes terolemia,history of hypertension. Surgical History history of tonsillectomy, cholecystectomy Family History I personally reviewed family history and found not pertinent Social History * Smoker: former Smoker Alcohol: Denies Drugs: denies A-FIB/CHADSVASC A-FIB History Current/History of A-Fib/PAF?: No Current PO Anticoag Therapy: No Review of Systems Constitutional: Denies: Chills, Fever Eyes: Denies: Pain ENT: Denies: Head Aches Skin: Denies: Rash, Lesions Pulmonary: Denies: Dyspnea, Cough Cardiovascular: Reports: Chest Pain Gastrointestinal: Denies: Nausea, Vomiting Genitourinary: Denies: Dysuria, Frequency Hematologic: Denies: Bruising Endocrine: Denies: Polydipsia, Polyphagia Musculoskeletal: Denies: Neck Pain Neurological: Denies: Weakness Psych: Reports: Mood Normal Physical Examination General Exam: Positive: Alert, Cooperative Eye Exam: Positive: PERRLA ENT Exam: Positive: Atraumatic Neck Exam: Positive: Supple; Negative: JVD Chest Exam: Positive: Clear to auscultation Heart Exam: Positive: Rate Normal Telemetry: Positive: No significant arrhythmia Abdomen Exam: Positive: Normal bowel sounds Extremity Exam: Negative: Cyanosis Skin Exam: Positive: Nl turgor and temperature Neuro Exam: Positive: Normal Gait Psych Exam: Positive: Mental status NL Vital Signs Vital Signs Date Time Temp Pulse Resp B/P (MAP) Pulse Ox O2 Delivery O2 Flow Rate FiO2 01/21/21 14:10 70 20 128/64 (85) 99 Room Air 01/21/21 11:30 98.5 Laboratory Data Labs 24H Laboratory Tests 2 01/21/21 11:17: POC Glucose (Misc Panel) 172H, POC Sodium (Misc Panel) 137, POC Potassium (Misc Panel) 4.3, POC Chloride (Misc Panel) 103, POC Total CO2 (Misc Panel) 25.0, POC Blood Urea Nitrogen (Misc Panel 21, POC Ionized Calcium (Misc Panel) 5.1, POC Creatinine (Misc Panel) 1.4H, POC Hematocrit (Misc Panel) 36.0L 01/21/21 11:20: POC Troponin I (Misc) 0.01 01/21/21 11:23: Immature Granulocyte % (Auto) 0.4, Neutrophils (%) (Auto) 54.5, Lymphocytes (%) (Auto) 23.8L, Monocytes (%) (Auto) 8.3H, Eosinophils (%) (Auto) 12.6H, Basophils (%) (Auto) 0.4, Neutrophils # (Auto) 5.0, Lymphocytes # (Auto) 2.2, Monocytes # (Auto) 0.8, Eosinophils # (Auto) 1.2H, Basophils # (Auto) 0.0, Nucleated Red Blood Cells % (auto) 0.0, Prothrombin Time 13.4, Prothromb Time International Ratio 1.00, Activated Partial Thromboplast Time 25.2, D-Dimer, Quantitative 511.38H, Blood Gas Bicarbonate Standard 22.5, Venous Blood pH 7.398, Venous Blood Partial Pressure CO2 38.2, Venous Blood Partial Pressure O2 31.5, Venous Blood Total Carbon Dioxide 24.2, Venous Blood HCO3 23.0, Venous Blood Oxygen Saturation 63.2, Venous Blood Base Excess -1.5, Anion Gap 9, Glomerular Filtration Rate 57.3, Lactic Acid Level 2.4*H, Calcium Level 9.7, Magnesium Level 2.1, Total Creatine Kinase 56, Creatine Kinase MB 1.4, Creatine Kinase MB Relative Index 2.50, Troponin I < 0.02, Thyroid Stimulating Hormone (TSH) 2.270, Free Thyroxine 1.19, Ethyl Alcohol Level < 0.003 01/21/21 14:20: CBC/BMP Laboratory Tests 01/21/21 11:23 Microbiology Microbiology 01/21/21 Respiratory Virus Panel (PCR) ([facility]) - Final, Complete 01/21/21 Blood Culture, Received Pending Assessment/Plan Patient is 70 years old male with past medical history of type 2 diabetes, COPD with emphysema, asthma, diverticulitis, diverticulitis, hyperlipidemia presented to the hospital after syncope. Vision stated that he was working in the yard in the morning, he developed dizziness and lightheadedness and he will see his consciousness. He does not remember how long he was unconscious, no seizure-like activities has been noticed. Also patient stated that he developed intermittent chest pain without radiation, substernal for a few minutes. It was chest pain 5 out of 10. In ER patient was found to have normal vital signs, heart rate 70, no leukocytosis, lactic acid 2.4, creatinine 1.3. Multiple imaging studies were done in ER, did not reveal stroke or acute pathology. EKG did not show any acute ischemic changes Patient denies fever, chills, nausea, vomiting, diarrhea or dysuria. Problems (1) Syncope Status: Acute Problem Text: Most likely vasovagal Secondary to possible dehydration IV fluid We'll check orthostatic vital signs Telemetry (2) Diabetes mellitus Status: Chronic Problem Text: Insulin sliding scale Diabetes diet Patient developed lactic acidosis most likely secondary to metformin. Dose of metformin should be decreased in the outpatient settings (3) Hypertension Status: Chronic Problem Text: Continue home cardioprotective medications Blood pressures under control (4) COPD (chronic obstructive pulmonary disease) Status: Chronic Problem Text: Not in acute exacerbation Continue home meds (5) Hyperlipidemia Status: Resolved Problem Text: Continue statin (6) Chest pain Status: Chronic Problem Text: Patient has multiple risk gender, hyperlipidemia, hypertension, diabetes Will continue to monitor troponin Will proceed Echo Telemetry Patient should have cardiac stress study in the outpatient settings (7) CKD (chronic kidney disease) Status: Chronic Problem Text: Stage III Creatinine at baseline Continue to monitor Plan / VTE VTE Prophylaxis Ordered?: Yes AISLINN FELDMAN DO Jan 21, 2021 14:28
[2021-01-21] MEDS ORDERED: ALBUTEROL SULFATE 2.5 MG/0.5 ML INH NEB SOLN INH PRN (14:40)
[2021-01-21] MEDS ORDERED: NITROGLYCERIN 0.4 MG SUBL TABLET SL PRN (14:40)
[2021-01-21] MEDS ORDERED: ALBUTEROL 90 MCG/ACT 8GM HFA INHALER INH PRN (14:40)
[2021-01-21 15:16] LABS: CK-MB VALUE MASS < 1.0 NG/ML (<3.6); CPK CREATINE PHOSPHOKINASE 55 U/L (39-308); MB/CK RELATIVE INDEX 1.82 (< OR =4); TROPONIN I < 0.02 NG/ML (< 0.10)
--- NOTE | 2021-01-21 15:20 | REP ---
INDICATION: pain COMPARISON: 08/24/2019. TECHNIQUE: Real time compression and duplex Doppler interrogation of the right lower extremity deep venous system is performed, including the left common femoral vein.Compression of the right peroneal and posterior tibial veins is performed. FINDINGS: The right common femoral, superficial femoral and popliteal veins are fully compressible with transducer pressure and demonstrate normal spontaneous and phasic flow, without evidence of deep venous thrombosis.The left common femoral vein demonstrates no thrombus.The visualized right peroneal and posterior tibial veins demonstrate no thrombus. The posterior tibial and peroneal veins are not well seen due to patient body habitus. IMPRESSION: No evidence of deep venous thrombosis of the right lower extremity femoral popliteal venous system.The visualized right peroneal and posterior tibial veins demonstrate no thrombus. <Electronically signed by Jose Amos > 01/21/21 [id number]
[2021-01-21] MEDS ORDERED: GLUCAGON INJ 1MG VIAL SC PRN (15:35)
[2021-01-21] MEDS ORDERED: GLUCOSE 4GM CHEW TABLET PO PRN (15:35)
[2021-01-21] MEDS ORDERED: DEXTROSE 50% 50 ML SYRINGE IV PRN (15:35)
[2021-01-21 17:00] VITALS: BP 142/72
[2021-01-21] MEDS: NS 1,000 ML IV SCH (17:49)
[2021-01-21] MEDS: HumaLOG INSULIN (NovoLOG) PER UNIT SC SCH ×2 (18:40→22:08)
--- NOTE | 2021-01-21 19:54 | ECGEPIP ---
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
[2021-01-21] MEDS ORDERED: ROSUVASTATIN 10 MG TAB (CRESTOR) PO SCH (21:00)
[2021-01-21] MEDS ORDERED: ramipriL 5 MG CAP PO SCH (21:00)
[2021-01-21] MEDS ORDERED: VITAMIN D 1,000 INTERNATIONAL UNITS TABLET PO SCH (21:00)
[2021-01-21] MEDS ORDERED: FERROUS SULFATE 325MG TAB PO SCH (21:00)
[2021-01-21 21:47] VITALS: BP_SYST 141; BP_SYST 143; BP_SYST 169; BP_DIAS 80; BP_DIAS 81; BP_DIAS 83
[2021-01-21 22:07] VITALS: BP 169/83
[2021-01-22] MEDS ORDERED: DOCUSATE SODIUM 100MG CAPSULE PO PRN (00:15)
[2021-01-22] MEDS ORDERED: MIRALAX *UNIT DOSE* 17GM PACKET PO PRN (00:15)
[2021-01-22] MEDS ORDERED: MOM 30ML SUSPENSION UDC PO PRN (00:15)
[2021-01-22] MEDS: HumaLOG INSULIN (NovoLOG) PER UNIT SC SCH ×2 (01:08→08:03)
[2021-01-22] MEDS: NS 1,000 ML IV SCH (03:21)
[2021-01-22 06:00] VITALS: BP 144/68
[2021-01-22 06:09] LABS: HEMATOCRIT 31.8 % (42.0-52.0); HEMOGLOBIN 10.2 g/dl (13.5-17.5); MEAN CORPUSCULAR HEMOGLOBIN 28.5 pg (27.0-33.0); MEAN CORPUSCULAR HGB CONC 32.1 g/dl (32.0-36.5); MEAN CORPUSCULAR VOLUME 88.8 fl (80.0-96.0); PLATELET COUNT, AUTOMATED 203 10^3/uL (150-450); RED BLOOD COUNT 3.58 10^6/uL (4.30-6.10); WHITE BLOOD COUNT 8.8 10^3/uL (4.0-10.0)
[2021-01-22 06:21] LABS: ALBUMIN 3.2 GM/DL (3.2-5.2); BILIRUBIN,TOTAL 0.2 MG/DL (0.2-1.0); CALCIUM LEVEL 9.6 MG/DL (8.8-10.2); CREATININE FOR GFR 1.43 MG/DL (0.70-1.30); GLOMERULAR FILTRATION RATE 52.2 (>49); POTASSIUM SERUM 4.5 MEQ/L (3.5-5.1); TOTAL PROTEIN 7.3 GM/DL (6.4-8.2)
[2021-01-22 06:24] VITALS: BP_SYST 150; BP_SYST 156; BP_DIAS 75; BP_DIAS 79; BP_DIAS 85
[2021-01-22] MEDS ORDERED: ENOXAPARIN 40MG/0.4ML SYRINGE (J1650 PER 10MG) SC SCH (09:00)
[2021-01-22] MEDS ORDERED: hydroCHLOROthiazide ORAL SUSP 5 MG/ML PO SCH (09:00)
[2021-01-22] MEDS ORDERED: MONTELUKAST 10 MG TAB PO SCH (09:00)
[2021-01-22] MEDS ORDERED: PANTOPRAZOLE 40MG TAB (PROTONIX) PO SCH (09:00)
--- NOTE | 2021-01-22 11:07 | DS.PDOC ---
Discharge Summary General Date of Admission Jan 21, 2021 at 14:15 Date of Discharge 01/22/2021 Discharge Summary PRIMARY CARE PHYSICIAN: Dr. Musa Maurer ATTENDING AT TIME OF DISCHARGE: Dr. 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 He was towards the end of his work when he began to feel lightheaded, nauseated, and weak. He states that he became so profoundly weak that he had to sit down on the ground, and was unable to get back up. Apparently he did not fall, but he could not necessarily remember. He seemed to be in and out of consciousness, he wasn't sure whether not he lost consciousness. He eventually was able to get himself up into the truck where he called his and EMS was contacted and he was brought into the emergency department. Due to concern for fall a head and neck CT was performed, both of which were unremarkable. Due to concerns for elevated d-dimer and a CT angiogram and lower extremity ultrasound were both performed, neither which found evidence of clots, however there is mention on the CT angiogram of cylindrical bronchiectasis and some evidence of early honeycomb lung formation particularly on the right. Clinically he does not have any respiratory symptoms. Chest x-ray was unremarkable. He also had a CT of the abdomen and pelvis which was also unremarkable Echocardiogram was performed, however the read is still pending at this time. He has been 24 hours on telemetry without any events. Electrocardiogram showed normal sinus rhythm. This morning he is feeling well, he has been up walking around without any lightheadedness or unsteadiness. He states that he is feeling significantly better. This time he does appear to be stable and ready for discharge. PHYSICAL EXAMINATION ON DISCHARGE: GENERAL: Awake, alert, oriented 3. He is in no acute distress. CARDIOVASCULAR EXAMINATION: Regular rate and rhythm, with no rubs, gallops, or murmur. RESPIRATORY EXAMINATION: Clear to auscultation bilaterally with no wheezes, rales, or rhonchi. ABDOMINAL EXAMINATION: Soft, nontender, nondistended. Bowel sounds present. EXTREMITIES: No clubbing or edema noted. 2+ pulses in the radial bilaterally. DISPOSITION: Home DISCHARGE INSTRUCTIONS: Follow-up with primary care provider within 7-10 days. Diet and activity as tolerated. If symptoms return, or if you experience worsening of your symptoms, please call your doctor or return to the emergency department. ITEMS THAT NEED OUTPATIENT FOLLOWUP: Echocardiogram was performed while inpatient, but the official read is still pending, please forward this to the PCP. Vital Signs/I&Os Vital Signs Date Time Temp Pulse Resp B/P (MAP) Pulse Ox O2 Delivery O2 Flow Rate FiO2 01/22/21 06:24 76 156/75 (102) 75 156/79 (104) 82 150/85 (106) 01/22/21 06:00 98.1 16 96 Room Air I&O- Last 24 Hours up to 6 AM 01/22/21 06:00 Intake Total 3835 ml Output Total 2575 ml Balance 1260 ml Laboratory Data Labs 24H Laboratory Tests 2 01/21/21 11:17: POC Glucose (Misc Panel) 172H, POC Sodium (Misc Panel) 137, POC Potassium (Misc Panel) 4.3, POC Chloride (Misc Panel) 103, POC Total CO2 (Misc Panel) 25.0, POC Blood Urea Nitrogen (Misc Panel 21, POC Ionized Calcium (Misc Panel) 5.1, POC Creatinine (Misc Panel) 1.4H, POC Hematocrit (Misc Panel) 36.0L 01/21/21 11:20: POC Troponin I (Misc) 0.01 01/21/21 11:23: Immature Granulocyte % (Auto) 0.4, Neutrophils (%) (Auto) 54.5, Lymphocytes (%) (Auto) 23.8L, Monocytes (%) (Auto) 8.3H, Eosinophils (%) (Auto) 12.6H, Basophils (%) (Auto) 0.4, Neutrophils # (Auto) 5.0, Lymphocytes # (Auto) 2.2, Monocytes # (Auto) 0.8, Eosinophils # (Auto) 1.2H, Basophils # (Auto) 0.0, Nucleated Red Blood Cells % (auto) 0.0, Prothrombin Time 13.4, Prothromb Time International Ratio 1.00, Activated Partial Thromboplast Time 25.2, D-Dimer, Quantitative 511.38H, Blood Gas Bicarbonate Standard 22.5, Venous Blood pH 7.398, Venous Blood Partial Pressure CO2 38.2, Venous Blood Partial Pressure O2 31.5, Venous Blood Total Carbon Dioxide 24.2, Venous Blood HCO3 23.0, Venous Blood Oxygen Saturation 63.2, Venous Blood Base Excess -1.5, Anion Gap 9, Glomerular Filtration Rate 57.3, Lactic Acid Level 2.4*H, Calcium Level 9.7, Magnesium Level 2.1, Total Creatine Kinase 56, Creatine Kinase MB 1.4, Creatine Kinase MB Relative Index 2.50, Troponin I < 0.02, Thyroid Stimulating Hormone (TSH) 2.270, Free Thyroxine 1.19, Ethyl Alcohol Level < 0.003 01/21/21 14:18: POC Troponin I (Misc) 0.00 01/21/21 14:20: Total Creatine Kinase 55, Creatine Kinase MB < 1.0, Creatine Kinase MB Relative Index 1.82, Troponin I < 0.02 01/21/21 16:00: Lactic Acid Followup at 4 Hours 3.1*H 01/21/21 17:48: Bedside Glucose (Misc Panel) 220H 01/22/21 01:04: Bedside Glucose (Misc Panel) 443H 01/22/21 03:20: 01/22/21 05:48: Nucleated Red Blood Cells % (auto) 0.0, Anion Gap 10, Glomerular Filtration Rate 52.2, Calcium Level 9.6, Magnesium Level 2.0, Total Bilirubin 0.2, Aspartate Am andre Transf (AST/SGOT) 16, Alanine Aminotransferase (ALT/SGPT) 25, Alkaline Phosphatase 36L, Total Protein 7.3, Albumin 3.2, Albumin/Globulin Ratio 0.8 CBC/BMP Laboratory Tests 01/21/21 11:23 01/22/21 05:48 FSBS Laboratory Tests Test 01/21/21 17:48 01/22/21 01:04 Range/Units Bedside Glucose (Misc Panel) 220 443 80-115 MG/DL Microbiology Microbiology 01/21/21 Blood Culture, Received Pending 01/21/21 Respiratory Virus Panel (PCR) (CLARA) - Final, Complete 01/21/21 Blood Culture, Received Pending Discharge Medications Scheduled Cholecalciferol (Vitamin D3) (Vitamin D3) 1,000 Unit Tablet, 2,000 UNITS PO QHS, (Reported) Ferrous Sulfate (Ferrous Sulfate) 325 Mg Tablet, 325 MG PO QHS, (Reported) Glipizide (Glipizide ER) 10 Mg Tab, 10 MG PO BID, (Reported) Hydrochlorothiazide (Hydrochlorothiazide) 25 Mg Tab, 25 MG PO DAILY, (Reported) Metformin HCl (Metformin HCl) 500 Mg Tab, 1,000 MG PO QHS, (Reported) Montelukast Sodium (Singulair) 10 Mg Tab, 10 MG PO DAILY, (Reported) Pantoprazole Sodium (Pantoprazole Sodium) 40 Mg Tab, 40 MG PO DAILY, (Reported) Ramipril (Altace) 5 Mg Cap, 5 MG PO QHS, (Reported) Rosuvastatin Calcium (Crestor) 10 Mg Tab, 10 MG PO QHS, (Reported) Sitagliptin (Januvia) 50 Mg Tablet, 50 MG PO DAILY, (Reported) Scheduled PRN Albuterol Sulf (Albuterol Sulfate) 2.5 Mg/3 Ml Nebu, 2.5 MG INH Q4H PRN for SHORTNESS OF BREATH, (Reported) Albuterol Sulfate (Ventolin Hfa) 108 Mcg/Act Aer, 2 PUFF INH Q4H PRN for SHORTNESS OF BREATH, (Reported) Nitroglycerin (Nitrostat) 0.4 Mg Subl, 0.4 MG SL NITRO PRN for CHEST PAIN, (Reported) Allergies Coded Allergies: SEASONAL ALLERGIES (Verified Allergy, Unknown, 09/13/18) prednisone (Verified Adverse Reaction, Mild, SHORTNESS OF BREATH, 08/24/19) JOSE INGRAM 12, 2021 11:07
[2021-01-22 11:55] LABS: AMPHETAMINES LEVEL URINE NEGATIVE (NEGATIVE); BARBITURATES URINE NEGATIVE (NEGATIVE); BENZODIAZEPINES URINE NEGATIVE (NEGATIVE); CANNABINOIDS URINE NEGATIVE (NEGATIVE); COCAINE METABOLITE URINE NEGATIVE (NEGATIVE); METHADONE URINE NEGATIVE (NEGATIVE); OPIATES URINE NEGATIVE (NEGATIVE)
[2021-01-22 11:56] LABS: PHENCYCLIDINE URINE NEGATIVE (NEGATIVE)
--- NOTE | 2021-01-24 14:36 | ECHO ---
ECHOCARDIOGRAM DATE OF PROCEDURE: 01/21/2021 Age: 70 Gender: Height: Weight: REFERRING PROVIDER: Dr. Johan Garcia. PATIENT LOCATION: Room 4210. REASON FOR THE TESTING: Syncope. 2D MEASUREMENTS: IVS 1.3 cm LV 5.2 cm LVPW 1.3 cm LA 3.7 cm Aorta 4.0 cm Ascending aorta 3.7 cm IVC 2.1 cm DOPPLER MEASUREMENT: Mitral E 0.9 Mitral A 1.0 with a ratio of 0.9 2D COMMENTS: 1. Mildly increased left ventricular wall thickness with normal left ventricular size and a normal global left ventricular systolic function. The estimated left ventricular systolic ejection fraction is 60 to 65%. 2. The left atrium appeared to be borderline enlarged. Normal right atrium and right ventricle. 3. The atrial septum appeared to be normal without evidence of defect or shunt. 4. Mildly dilated aortic root and ascending aorta at 4.0 cm and 3.7 cm respectively. 5. No pericardial effusion seen. 6. The aortic valve, mitral valve, and tricuspid valve appeared to be normal. The pulmonic valve and proximal pulmonary artery branches were not well visualized. 7. The inferior vena cava was dilated. Central venous pressure mildly elevated. DOPPLER: No significant valvular abnormalities detected. Abnormal relaxation pattern was noted across the mitral valve leaflets as well as the mitral valve annulus consistent with features of grade 1 left ventricular diastolic dysfunction. IMPRESSION: 1. Normal global left ventricular systolic function with mild concentric left ventricular hypertrophy. There were some features of grade 1 left ventricular diastolic dysfunction manifested by abnormal relaxation. 2. Mildly dilated aortic root and ascending aorta at 4.0 cm and 3.7 cm respectively. 3. No significant valvular abnormalities.
== END 2021-01-22 12:04 | disposition home or self-care (01) ==
LOC: M ED 11:07 → M ED INP 14:15 → ENRESERV 14:39 → M MSPAV 16:42
PROVIDERS: ADMIT Internal Medicine; ATTEND Neuromusculoskeletal Medicine & OMM
DX: R55 Syncope and collapse (principal); E86.0 Dehydration; E11.9 Type 2 diabetes mellitus without complications; N18.30 Chronic kidney disease, stage 3 unspecified; I12.9 Hypertensive chronic kidney disease with stage 1 through stage 4 chronic kidney disease, or unspecified chronic kidney disease; E87.2 Acidosis; J44.9 Chronic obstructive pulmonary disease, unspecified; E78.49 Other hyperlipidemia; E07.9 Disorder of thyroid, unspecified; K57.92 Diverticulitis of intestine, part unspecified, without perforation or abscess without bleeding; Z79.84 Long term (current) use of oral hypoglycemic drugs; Z79.899 Other long term (current) drug therapy; Z88.8 Allergy status to other drugs, medicaments and biological substances; Z87.891 Personal history of nicotine dependence
CPT/HCPCS: 36415; 70450; 71045; 71275; 72125; 74177; 80047; 80048; 80053; 80307; 82077; 82550; 82553; 82803; 83605; 83735; 84439; 84443; 84484; 85025; 85027; 85379; 85610; 85730; 87040; 87798; 93005; 93041; 93306; 93971; 94640; 96361; 96372; 96374; 96375; 99285; G0378; J1100; J1650; Q9967

== ENCOUNTER → 2021-03-23 | Outpatient (CLI) | payer MEDICARE, OTHER ==
[~2021-03-23] MED LIST changes: +D31000TA2 PO; +FERR1TAB8 PO; +SITA50TAB PO
--- NOTE | 2021-03-29 08:50 | REPVR ---
PROCEDURE INFORMATION: Exam: MRA Neck Without Contrast Exam date and time: 03/23/2021 3:04 PM Age: 70 years old Clinical indication: Dizziness and giddiness; Additional info: Occlusion and stenosis of right carotid artery TECHNIQUE: Imaging protocol: Magnetic resonance angiography of the neck without contrast. 3D rendering (Not supervised by radiologist): MIP and/or 3D reconstructed images were created by the technologist. COMPARISON: No relevant prior studies available. FINDINGS: Right common carotid artery: No stenosis. No dissection or occlusion. Right internal carotid artery: Examination reveals moderate focal atherosclerotic plaque at the origin of the right internal carotid artery with a mild 40-50% stenosis. Right external carotid artery: No stenosis. No dissection or occlusion of the origin. Right vertebral artery: No stenosis. No dissection or occlusion. Left common carotid artery: No stenosis. No dissection or occlusion. Left internal carotid artery: Examination reveals moderate focal atherosclerotic plaque at the origin of the left internal carotid artery with a mild 40-50% stenosis. Left external carotid artery: No stenosis. No dissection or occlusion of the origin. Left vertebral artery: No stenosis. No dissection or occlusion. IMPRESSION: 1. Examination reveals moderate focal atherosclerotic plaque at the origin of the right internal carotid artery with a mild 40-50% stenosis. 2. Examination reveals moderate focal atherosclerotic plaque at the origin of the left internal carotid artery with a mild 40-50% stenosis. REFERENCES: NASCET CRITERIA. The degree of internal carotid artery stenosis is based on NASCET criteria. Normal is no stenosis. Mild is less than 50% stenosis. Moderate is 50-69% stenosis. Severe is 70% to 99% stenosis. Total occlusion is no detectable patent lumen. Electronically signed by: Deric Perez On 03/29/2021 08:50:19 AM
== END ==
LOC: M RAD 13:31
DX: I65.21 Occlusion and stenosis of right carotid artery (principal)

== ENCOUNTER 2021-08-01 16:45 | Inpatient (IN) | payer MEDICARE, OTHER ==
[~2021-08-01] VITALS: Ht 190.5 cm; Wt 100.4 kg
[2021-08-01] MEDS: ALBUTEROL 90 MCG/ACT 8GM HFA INHALER INH SCH ×3 (17:26→18:05)
--- NOTE | 2021-08-01 18:09 | REP ---
INDICATION: SP FALL, LEFT SHOULDER PAIN COMPARISON: None. TECHNIQUE: Internal rotation, external rotation, and Y view. FINDINGS: Cortical irregularity at the acromioclavicular joint and tiny calcification adjacent to the greater tuberosity suggest degenerative change and early calcific tendinopathy. The subacromial space measures 10 mm. There is no evidence for acute fracture or dislocation. IMPRESSION: Age-related degenerative changes as noted above. No acute fracture or dislocation. <Electronically signed by Ramiro Michel > 08/01/21 [id number]
--- NOTE | 2021-08-01 18:10 | REP ---
INDICATION: Coronavirus workup COMPARISON: 01/21/2021 TECHNIQUE: Portable AP view of the chest FINDINGS: Mediastinum and cardiac silhouette are within normal limits. Lung barraza demonstrate age-related changes. No focal consolidation or effusion. Skeletal structures intact. IMPRESSION: Chronic stable changes. No focal consolidation or effusion. <Electronically signed by Ramiro Michel > 08/01/21 [id number]
[2021-08-01 18:28] LABS: HEMATOCRIT 29.4 % (42.0-52.0); HEMOGLOBIN 9.8 g/dl (13.5-17.5); MEAN CORPUSCULAR HEMOGLOBIN 28.3 pg (27.0-33.0); MEAN CORPUSCULAR HGB CONC 33.3 g/dl (32.0-36.5); PLATELET COUNT, AUTOMATED 143 10^3/uL (150-450); RED BLOOD COUNT 3.46 10^6/uL (4.30-6.10); WHITE BLOOD COUNT 4.4 10^3/uL (4.0-10.0)
[2021-08-01 18:41] LABS: ALBUMIN 3.1 GM/DL (3.2-5.2); BILIRUBIN,TOTAL 0.6 MG/DL (0.2-1.0); C REACTIVE PROTEIN QUANTITATIV 11.1 MG/DL (0.00-0.30); CALCIUM LEVEL 9.6 MG/DL (8.8-10.2); CK-MB VALUE MASS < 1.0 NG/ML (<3.6); CPK CREATINE PHOSPHOKINASE 57 U/L (39-308); CREATININE FOR GFR 1.74 MG/DL (0.70-1.30); GLOMERULAR FILTRATION RATE 41.6 (>49); MAGNESIUM LEVEL 2.1 MG/DL (1.8-2.4); MB/CK RELATIVE INDEX 1.75 (< OR =4); POTASSIUM SERUM 3.7 MEQ/L (3.5-5.1); TOTAL PROTEIN 7.2 GM/DL (6.4-8.2)
--- NOTE | 2021-08-01 18:42 | REPVR ---
PROCEDURE INFORMATION: Exam: CT Head Without Contrast Exam date and time: 08/01/2021 5:19 PM Age: 70 years old Clinical indication: Syncope and collapse; Additional info: Near syncope /chi/ro covid TECHNIQUE: Imaging protocol: Computed tomography of the head without contrast. Radiation optimization: All CT scans at this facility use at least one of these dose optimization techniques: automated exposure control; mA and/or kV adjustment per patient size (includes targeted exams where dose is matched to clinical indication); or iterative reconstruction. COMPARISON: 1. CT Head without contrast 2021-01-21 11:[address] Spine,cervical w/o contrast 2021-01-21 11:35 FINDINGS: Brain: Diffuse moderate cerebral age related volume loss. Moderate patchy low attenuation in the white matter compatible with moderate chronic small vessel ischemic disease. No midline shift, mass, fluid collection, or evidence of hemorrhage. Cerebral ventricles: Ventricular enlargement proportional to volume loss. Paranasal sinuses: Visualized sinuses are unremarkable. No fluid levels. Mastoid air cells: Visualized mastoid air cells are well aerated. Bones/joints: Unremarkable. No acute fracture. Soft tissues: Unremarkable. IMPRESSION: Moderate involutional changes, no acute intracranial abnormality. Electronically signed by: James Youssef On 08/01/2021 18:42:35 PM
[2021-08-01 19:11] LABS: ATYPICAL LYMPH 3 % (0-5); BASOPHILS 1 % (0-1); LYMPHOCYTES 25 % (16-44); MONOCYTES 11 % (0-5); MYELOCYTES 1 % (0-0); NEUTROPHILS 55 % (28-66); PLATELET ESTIMATE DECREASED (NORMAL)
[2021-08-01 19:12] LABS: ANISOCYTOSIS 1+
--- NOTE | 2021-08-01 19:16 | ECGEPIP ---
[facility] - ED Test Date: 2021-08-01 Pat Name: KEL JORDAN Department: Room: - Gender: Male Gamb Cutter: sierra gutierrez : 1950 Requested By: Sushma Espinoza Order Number: [id number] Reading MD: Betzaida Ramey Measurements Intervals [place] Rate: 86 P: 54 MT: 144 QRS: -3 QRSD: 94 T: 24 QT: 386 QTc: 461 Interpretive Statements Normal sinus rhythm increased rate 01/21/21 Electronically Signed on 08-01-2021 19:16:05 EST by Betzaida Ramey
[2021-08-01] MEDS ORDERED: ISOVUE-370 76% 100ML VIAL As Ordered ONE (19:18)
[2021-08-01] MEDS ORDERED: JANU100T PO (19:24)
[2021-08-01] MEDS ORDERED: METF-818 PO (19:24)
[2021-08-01] MEDS ORDERED: LANTINJ4 SC (19:24)
[2021-08-01] MEDS ORDERED: HOME MED LIST COMPLETE! XX SCH (19:25)
--- NOTE | 2021-08-01 20:50 | REPVR ---
PROCEDURE INFORMATION: Exam: CTA Chest With Contrast Exam date and time: 08/01/2021 8:01 PM Age: 70 years old Clinical indication: Pain; Angina pectoris; Additional info: Right sided chest pain TECHNIQUE: Imaging protocol: Computed tomographic angiography of the chest with contrast. 3D rendering (Not supervised by radiologist): MIP and/or 3D reconstructed images were created by the technologist. Radiation optimization: All CT scans at this facility use at least one of these dose optimization techniques: automated exposure control; mA and/or kV adjustment per patient size (includes targeted exams where dose is matched to clinical indication); or iterative reconstruction. Contrast material: ISOVUE 370; Contrast volume: 75 ml; Contrast route: INTRAVENOUS (IV); COMPARISON: 1. CT ANGIO CHEST 2021-01-21 11:[address] ANGIO CHEST 2018-08-05 10:04 FINDINGS: Pulmonary arteries: Suboptimal pulmonary artery contrast concentration for pulmonary emboli evaluation. No main or segmental pulmonary emboli. Nondiagnostic for more peripheral pulmonary branches. Aorta: Unremarkable. No aortic aneurysm. No aortic dissection. Lungs: Dependent subsegmental pulmonary atelectasis. Mild vague ground-glass opacities in the mosaic attenuation with less visible vasculature in the more irradiated areas. Suggests small airways disease., though minimal edema or atypical infection could appear similar. Mild fibrotic changes in the right middle and lower lobes. Pleural spaces: Unremarkable. No pneumothorax. No pleural effusion. Heart: Unremarkable. No cardiomegaly. No pericardial effusion. Lymph nodes: Unremarkable. No enlarged lymph nodes. Spleen: The spleen demonstrates punctate calcifications, consistent with remote granulomatous organism exposure. Spleen appears enlarged, though incompletely included in the field of view. Bones/joints: Unremarkable. No acute fracture. Soft tissues: Unremarkable. IMPRESSION: 1. Mild vague ground-glass opacities in the mosaic attenuation with less visible vasculature in the more irradiated areas. Suggests small airways disease., though minimal edema or atypical infection could appear similar. 2. Spleen appears enlarged, though incompletely included in the field of view. 3. Suboptimal pulmonary artery contrast concentration for pulmonary emboli evaluation. No main or segmental pulmonary emboli. Nondiagnostic for more peripheral pulmonary branches. Electronically signed by: James Youssef On 08/01/2021 20:50:19 PM
[2021-08-02] MEDS ORDERED: DEXTROSE 50% 50 ML SYRINGE IV PRN (00:05)
[2021-08-02] MEDS ORDERED: PERCOCET 5MG/325MG TAB PO ONE ×2 (00:05→08:35)
[2021-08-02] MEDS ORDERED: GLUCAGON INJ 1MG VIAL SC PRN (00:05)
[2021-08-02] MEDS ORDERED: GLUCOSE 4GM CHEW TABLET PO PRN (00:05)
--- NOTE | 2021-08-02 00:40 | HPEPDOC ---
[facility] Medical History & Physical Date of Admission Aug 02, 2021 Date of Service: Aug 02, 2021 Attending Physician: LEENA LINARES MD History and Physical CHIEF COMPLAINT: Fall with shortness of breath HISTORY OF PRESENT ILLNESS: This is a 70 y/o male that comes in after being ill for about a week. He reports fever of 100.3 at home. He states that he would get short of breath and almost fall, and then last night he did fall and landed on his hunting tools. He scraped up his back and it does cause him pain when he breathes. He was very concerned with Covid, but tested negative. He has been try ing to lance this week while he was ill. Complains of cough and shortness of breath. He has a history of COPD, DM2, HTN, GERD, MIKE and high cholesterol. He denies any cardiac disease. He denies nausea, vomiting, or diarrhea. PAST MEDICAL HISTORY: 1. COPD 2. DM2 3. HTN 4. GERD 5. MIKE 6. Hyperlipidemia PAST SURGICAL HISTORY: 1. T&A 2. [place] 3. Oral surgery SOCIAL HISTORY: Marital status: Employment: Retired Tobacco use:denies ETOH: occasional Illicit drug use: Denies FAMILY HISTORY: Father: Heart disease Mother: of aspiration Allergies Coded Allergies SEASONAL ALLERGIES (Verified Allergy, Unknown, 09/13/18) prednisone (Verified Adverse Reaction, Mild, SHORTNESS OF BREATH, 08/24/19) REVIEW OF SYSTEMS: ROS 10 system review is positive for that mentioned above in the HPI, remaining systems are negative. HOME MEDICATIONS: Please see below. PHYSICAL EXAMINATION: VITAL SIGNS: Temperature 98.4, pulse 92, respiratory rate 20, blood pressure 128/76, pulse oximetry 90% on room air. GENERAL APPEARANCE: Appears stated age, appears uncomfortable, increased with deep breath. Pleasant. HEENT: EYEs normal, Face symmetrical. No external abnormalities CARDIOVASCULAR: Heart tones regular in rate and rhythm, no murmurs. LUNGS: Lung sounds diminished, no wheezes or rales. Pain with deep breath to right posterioe chest due to injury ABDOMEN: round and soft with positive bowel sounds MUSCULOSKELETAL: HERRERA with equal strength, Pain with breath due to posterior chest injury, with swelling to area and lacerations. EXTREMITIES: No edema, no injuries, no lesions NEUROLOGICAL: A&O x3 PSYCHIATRIC: Calm and cooperative LABORATORY DATA: See below. IMAGING: CXR:Chronic stable changes. No focal consolidation or effusion. Head CT:Moderate involutional changes, no acute intracranial abnormality. shoulder xray:Age-related degenerative changes as noted above. No acute fracture or dislocation. Chest CT: 1. Mild vague ground-glass opacities in the mosaic attenuation with less visible vasculature in the more irradiated areas. Suggests small airways disease., though minimal edema or atypical infection could appear similar. 2. Spleen appears enlarged, though incompletely included in the field of view. 3. Suboptimal pulmonary artery contrast concentration for pulmonary emboli evaluation. No main or segmental pulmonary emboli. Nondiagnostic for more peripheral pulmonary branches. MICROBIOLOGY: Please see below. ASSESSMENT: 1. Viral pneumonia with exertional hypoxia . PLAN: 1. Support with oxygen to keep saturations at 92%, patient hypoxia may likely be to shallow breathing. 2. Tylenol for pain 3. IS 4. Duonebs qid prn 2. Rhinovirus Plan: 1. supportive, symptomatic care 3. DM2 Plan 1. Consistent carb diet 2. ACHS fingerstick glucose with sliding scale 4. COPD Plan 1. Does not seem exacerbated, however, needs watching 2. Continue home medications 5. HTN Plan 1. monitor blood pressure 2. Continue home medications 6. S/p Fall with right posterior chest abrasions and mild swelling Plan 1. Tylenol for pain 2. PT eval and treat 7. Hyperlipidemia Plan 1. continue statin 8. MIKE Plan 1. Consider CPAP from home. Code status: full code DVT prophylaxis with Lovenox Admission status Observation Vital Signs Vital Signs Date Time Temp Pulse Resp B/P (MAP) Pulse Ox O2 Delivery O2 Flow Rate FiO2 08/01/21 23:00 92 128/76 (93) 90 08/01/21 16:55 98.4 20 Room Air Laboratory Data Labs 24H Laboratory Tests 2 08/01/21 17:10: Neutrophils (%) (Auto) , Nucleated Red Blood Cells % (auto) 0.0, Neutrophils 55, Band Neutrophils 4, Lymphocytes (Manual) 25, Monocytes (Manual) 11H, Basophils (Manual) 1, Myelocytes 1H, Atypical Lymphocytes 3, Anisocytosis 1+, Platelet Estimate DECREASED, Fibrinogen 520H, Anion Gap 8, Glomerular Filtration Rate 41.6L, Lactic Acid Level 1.8, Calcium Level 9.6, Magnesium Level 2.1, Ferritin 464H, Total Bilirubin 0.6, Aspartate Amino Transf (AST/SGOT) 60H, Alanine Aminotransferase (ALT/SGPT) 58, Alkaline Phosphatase 57, Lactate Dehydrogenase 324H, Total Creatine Kinase 57, Creatine Kinase MB < 1.0, Creatine Kinase MB Relative Index 1.75, Troponin I High Sensitivity 9.0, C-Reactive Protein, Quantitative 11.10H, Total Protein 7.2, Albumin 3.1L, Albumin/Globulin Ratio 0.8, Procalcitonin 2.41 08/01/21 17:54: Urine Color YELLOW, Urine Appearance CLEAR, Urine pH 5.0, Urine Specific [place] 1.046, Urine Protein 2+H, Urine Glucose (UA) NEGATIVE, Urine Ketones NEGATIVE, Urine Blood NEGATIVE, Urine Nitrite NEGATIVE, Urine Bilirubin NEGATIVE, Urine Urobilinogen 2.0H, Urine Leukocyte Esterase NEGATIVE, Urine WBC (Auto) 1, Urine RBC (Auto) 2, Urine Hyaline Casts (Auto) 0, Urine Bacteria (Auto) NEGATIVE, Urine Squamous Epithelial Cells 0, Urine Mucus (Auto) SMALL, Urine Sperm (Auto) 08/01/21 18:06: POC Glucose (Misc Panel) 227H, POC Sodium (Misc Panel) 131L, POC Potassium (Misc Panel) 3.7, POC Chloride (Misc Panel) 96L, POC Total CO2 (Misc Panel) 22.0L, POC Blood Urea Nitrogen (Misc Panel 33H, POC Ionized Calcium (Misc Panel) 4.9, POC Creatinine (Misc Panel) 1.8H, POC Hematocrit (Misc Panel) 28.0L CBC/BMP Laboratory Tests 08/01/21 17:10 Microbiology Microbiology 08/01/21 Respiratory Virus Panel (PCR) (CLARA) - Final, Complete Human Rhinovirus/Enterovirus 08/01/21 Blood Culture, Received Pending 08/01/21 Blood Culture, Received Pending Home Medications Scheduled Cholecalciferol (Vitamin D3) (Vitamin D3) 1,000 Unit Tablet, 2,000 UNITS PO QHS Ferrous Sulfate (Ferrous Sulfate) 325 Mg Tablet, 325 MG PO QHS Glipizide (Glipizide ER) 10 Mg Tab, 10 MG PO BID Hydrochlorothiazide (Hydrochlorothiazide) 25 Mg Tab, 25 MG PO DAILY Insulin Glargine,Hum.rec.anlog (Lantus Solostar) 100 Unit/1 Ml Insuln.pen, 10 UNITS SC QHS Metformin HCl (Metformin ER Gastric) 1,000 Mg [id number], 1,000 MG PO QHS Montelukast Sodium (Singulair) 10 Mg Tab, 10 MG PO DAILY Pantoprazole Sodium (Pantoprazole Sodium) 40 Mg Tab, 40 MG PO DAILY Ramipril (Altace) 5 Mg Cap, 5 MG PO QHS Rosuvastatin Calcium (Crestor) 10 Mg Tab, 10 MG PO QHS Sitagliptin Phosphate (Januvia) 100 Mg Tablet, 100 MG PO DAILY Scheduled PRN Albuterol Sulf (Albuterol Sulfate) 2.5 Mg/3 Ml Nebu, 2.5 MG INH Q4H PRN for SHORTNESS OF BREATH Albuterol Sulfate (Ventolin Hfa) 108 Mcg/Act Aer, 2 PUFF INH Q4H PRN for SHORTNESS OF BREATH Nitroglycerin (Nitrostat) 0.4 Mg Subl, 0.4 MG SL NITRO PRN for CHEST PAIN Allergies Coded Allergies: SEASONAL ALLERGIES (Verified Allergy, Unknown, 09/13/18) prednisone (Verified Adverse Reaction, Mild, SHORTNESS OF BREATH, 08/24/19) A-FIB/CHADSVASC A-FIB History Current/History of A-Fib/PAF?: No Current PO Anticoag Therapy: Kristy Ann Aug 02, 2021 00:40
[2021-08-02 01:09] VITALS: BP 137/65
[2021-08-02] MEDS: HumaLOG INSULIN (NovoLOG) PER UNIT SC SCH ×5 (01:35→20:03)
[2021-08-02 06:00] VITALS: BP 121/65
[2021-08-02 06:47] LABS: CALCIUM LEVEL 8.4 MG/DL (8.8-10.2); CREATININE FOR GFR 1.94 MG/DL (0.70-1.30); GLOMERULAR FILTRATION RATE 36.7 (>49); POTASSIUM SERUM 3.6 MEQ/L (3.5-5.1)
[2021-08-02] MEDS: IPRATROPIUM 0.5MG/ALBUTEROL 2.5MG INH SOL UD 3ML (DUONEB) NEB PRN (08:07)
[2021-08-02] MEDS: NS 1,000 ML IV SCH ×3 (08:52→21:22)
[2021-08-02] MEDS: MONTELUKAST 10 MG TAB PO SCH (08:53)
[2021-08-02] MEDS: PANTOPRAZOLE 40MG TAB (PROTONIX) PO SCH (08:53)
[2021-08-02] MEDS: SODIUM CHLORIDE 1 GM TAB PO SCH ×3 (08:54→17:14)
[2021-08-02] MEDS: DOXYCYCLINE HYCLATE 100 MG in D5W MINI-BAG PLUS 100 ML IV SCH ×2 (08:57→21:22)
[2021-08-02] MEDS ORDERED: SITagliptin 50 MG TAB (JANUVIA) PO SCH (09:00)
[2021-08-02] MEDS ORDERED: ENOXAPARIN 40MG/0.4ML SYRINGE (J1650 PER 10MG) SC SCH (09:00)
[2021-08-02] MEDS: cefTRIAXone SOD 2 GM in D5W MINI-BAG PLUS 50 ML IV SCH (10:46)
[2021-08-02] MEDS: ALBUTEROL SULFATE 2.5 MG/0.5 ML INH NEB SOLN INH PRN ×2 (13:16→19:43)
[2021-08-02 14:00] VITALS: BP 126/79
--- NOTE | 2021-08-02 16:28 | REP ---
INDICATION: warren on [id number] COMPARISON: None TECHNIQUE: Real time piña scale ultrasound examination using curved array transducer. FINDINGS: Right kidney measures 11.9 x 5.2 x 4.7 cm and is normal in reniform shape without hydronephrosis or nephrolithiasis. There is a 2.2 x 1.5 x 1.4 cm hypodense lesion along the lower pole which is consistent with cyst compared with 01/21/2021 CT. The left kidney measures 15.6 x 6.3 x 6.5 cm and includes multiple cysts measuring 2.2 cm, 2.1 cm, and 4.2 cm maximal diameter. There is no evidence for hydronephrosis, nephrolithiasis, or renal mass lesion. Bladder is grossly unremarkable. IMPRESSION: 1. Kidneys demonstrate bilateral cysts. No hydronephrosis. <Electronically signed by Ramiro Michel > 08/02/21 [id number]
--- NOTE | 2021-08-02 17:10 | REP ---
INDICATION: RIGHT FLANK PAIN R/O NEPHROLITHIASIS. COMPARISON: 09/23/2018 FINDINGS: KUB shows the intestinal gas pattern to be nonspecific. The organ silhouettes insofar as delineated are unremarkable. There is no evidence of free intraperitoneal air. No abnormal calcifications are identified. IMPRESSION: Nonspecific. If nephroureterolithiasis is of clinical concern then follow-up with noncontrast enhanced stone protocol CT. <Electronically signed by Lee Kaur > 08/02/21 [id number]
[2021-08-02] MEDS: MORPHINE 30 MG TAB **MSIR PO PRN (17:14)
[2021-08-02] MEDS ORDERED: PILL CUTTER 1 EACH XX PRN (17:15)
[2021-08-02] MEDS ORDERED: LEVEMIR (INSULIN DETEMIR) 1 UNITS/0.01ML SC SCH ×2 (21:00)
[2021-08-02] MEDS ORDERED: ROSUVASTATIN 10 MG TAB (CRESTOR) PO SCH (21:00)
[2021-08-02] MEDS ORDERED: ramipriL 5 MG CAP PO SCH (21:00)
[2021-08-02] MEDS ORDERED: FERROUS SULFATE 325MG TAB PO SCH (21:00)
[2021-08-02 22:00] VITALS: BP 116/55
[2021-08-03] MEDS: IPRATROPIUM 0.5MG/ALBUTEROL 2.5MG INH SOL UD 3ML (DUONEB) NEB PRN (00:06)
[2021-08-03] MEDS: MORPHINE 30 MG TAB **MSIR PO PRN (04:21)
[2021-08-03 06:00] VITALS: BP 119/64
[2021-08-03] MEDS: PANTOPRAZOLE 40MG TAB (PROTONIX) PO SCH (08:53)
[2021-08-03] MEDS: SODIUM CHLORIDE 1 GM TAB PO SCH ×3 (08:53→17:31)
[2021-08-03] MEDS: MONTELUKAST 10 MG TAB PO SCH (08:53)
[2021-08-03] MEDS: HumaLOG INSULIN (NovoLOG) PER UNIT SC SCH ×3 (08:53→17:32)
[2021-08-03] MEDS: DOXYCYCLINE HYCLATE 100 MG in D5W MINI-BAG PLUS 100 ML IV SCH (08:54)
[2021-08-03] MEDS: NS 1,000 ML IV SCH (08:55)
--- NOTE | 2021-08-03 10:29 | IPN ---
PROGRESS NOTE DATE: 08/02/2021 SUBJECTIVE: Patient complains of dyspnea on exertion, slight cough. Shortness of breath is the same unchanged. No nausea or vomiting, headache, diarrhea, abdominal pain. Patient complains of some rhinorrhea. OBJECTIVE: Vital signs: Temperature 98.1, pulse 82, respiratory rate 20, blood pressure 121/65, 97% on room air. General: Awake, alert, oriented person, place and time, answering questions appropriately. No stridor. No use of respiratory accessory muscles. HEENT: No icterus, jaundice. Lungs: Diminished. Heart: S1 and S2 sinus. Abdomen: Soft, nontender, nondistended. Extremities: No edema. LABORATORY DATA/IMAGING STUDIES/MICROBIOLOGY: Have been reviewed. ASSESSMENT: 70-year-old male with history of COPD not oxygen or steroid dependent, diarrhea, hypertension, reflux, MIKE, hyperlipidemia presented to the Emergency Room with a fall with shortness of breath for the past 1 week, falling backwards hitting his back on his hunting tools. CT chest with I.V. contrast ruled out pulmonary embolism. Patient was admitted and found to have viral pneumonia with exertional hypoxia. Ground glass opacities noted on CT chest. Patient's creatinine was 1.74. He was continued on his ramipril for hypertension. Current creatinine is 1.94. Possible contrast and ramipril induced acute on chronic renal failure. Patient has chronic kidney disease stage 3. CURRENT ISSUES: 1. Enterovirus, rhinovirus, pneumonia. 2. Acute exertional hypoxia. 3. Uncontrolled type-2 diabetes. 4. COPD not in exacerbation. 5. Hypertension. 6. Fall status post traumatic injuries to his posterior chest. 7. Hyperlipidemia. 8. MIKE. PLAN: Continue with supportive care for now. His Levemir insulin has been increased to 15 units subcutaneously at bedtime due to uncontrolled type-2 diabetes. He is currently on antibiotics ceftriaxone and doxycycline. Patient's procalcitonin was 2.41; would suspect secondary bacterial infection. For his hyponatremia patient has been given salt tablets. His creatinine is quite elevated today with 1.94. For possible ramipril and contrast induced nephropathy continue with I.V. fluids for now. No signs of rhabdomyolysis with normal total CK. Blood pressure is well controlled with systolic pressure of 121 this morning. Continue with contact precautions.
[2021-08-03 11:23] LABS: CALCIUM LEVEL 8.5 MG/DL (8.8-10.2); CREATININE FOR GFR 1.47 MG/DL (0.70-1.30); GLOMERULAR FILTRATION RATE 50.6 (>49); POTASSIUM SERUM 4.4 MEQ/L (3.5-5.1)
[2021-08-03] MEDS: cefTRIAXone SOD 2 GM in D5W MINI-BAG PLUS 50 ML IV SCH (11:26)
[2021-08-03] MEDS ORDERED: INSUDET SC (12:51)
[2021-08-03] MEDS ORDERED: CEFD300C PO (12:51)
[2021-08-03] MEDS ORDERED: DOXY100C3 PO (12:51)
[2021-08-03] MEDS ORDERED: NORV5TAB PO (12:51)
[2021-08-03] MEDS ORDERED: BACITAB PO (12:51)
[2021-08-03] MEDS ORDERED: SODI1TAB6 PO (12:53)
[2021-08-03 14:00] VITALS: BP 129/75
--- NOTE | 2021-08-03 14:34 | IPN ---
PROGRESS NOTE DATE: 08/03/2021 SUBJECTIVE: Patient denies any shortness of breath. Patient denies any recent nonsteroidal anti-inflammatory meds, but had been on ramipril and received I.V. contrast study on admission. Creatinine was up to 1.94 on I.V. fluids overnight. OBJECTIVE: Vital signs: Temperature 98.5, pulse 83, respiratory rate 16, blood pressure 119/64, 96% on room air. General: Awake, alert, oriented to person, place and time, answering questions appropriately. Lungs: Clear to auscultation, no wheezes, rhonchi or rales. Heart: S1 and S2 sinus rhythm. Abdomen: Soft, nontender, nondistended, positive bowel sounds. Extremities: No cyanosis, clubbing or pitting edema. LABORATORY DATA/IMAGING STUDIES/MICROBIOLOGY: Please see the chart. ASSESSMENT: 70-year-old with history of COPD not oxygen or steroid dependent, hypertension, reflux, MIKE, hyperlipidemia presents with shortness of breath for the past week, falling backward hitting his back on hunting tools. CT chest with I.V. contrast ruled out pulmonary embolism, pneumonia or congestive heart failure. Respiratory panel showed human rhinovirus and enterovirus. Patient was found to have acute kidney injury with creatinine of 1.74 worsened to 1.94 after I.V. contrast and ramipril were continued. I.V. fluids given overnight showed improvement to 1.47. Patient's baseline creatinine is 1.37 to 1.56 with chronic kidney disease stage 3. IMPRESSIONS/PLAN: 1. Renal failure: Improving creatinine. Maybe some contrast nephropathy with continued use of ramipril currently on I.V. fluids. Encourage oral intake for now. 2. Human rhinovirus, enterovirus: Isolation precautions. No active pneumonia. Patient is 95-97% on room air. 3. COPD: Not in acute exacerbation. Continue with as needed bronchodilators. 4. Type-2 diabetes uncontrolled: Patient's long acting insulin has been increased to 15 units at bedtime. 5. Dyslipidemia: On chronic Crestor. 6. Iron deficiency: On ferrous sulfate. 7. Suspected bacterial infection: On ceftriaxone and azithromycin. 8. Disposition: May discharge later today if creatinine is back to normal or in the morning once creatinine is stable.
[2021-08-03 17:49] LABS: CALCIUM LEVEL 8.4 MG/DL (8.8-10.2); CREATININE FOR GFR 1.3 MG/DL (0.70-1.30); GLOMERULAR FILTRATION RATE 58.3 (>49); POTASSIUM SERUM 4.5 MEQ/L (3.5-5.1)
== END 2021-08-03 19:21 | disposition home or self-care (01) | DRG 153 ==
LOC: M ED 16:45 → M ED INP 23:58 → M MSPAV 08-02 01:08 → OBSVTOIN 08-02 07:44
PROVIDERS: ADMIT Family Medicine; ATTEND General Practice
DX: J00 Acute nasopharyngitis [common cold] (principal); E87.1 Hypo-osmolality and hyponatremia; N17.9 Acute kidney failure, unspecified; S40.012A Contusion of left shoulder, initial encounter; W01.0XXA Fall on same level from slipping, tripping and stumbling without subsequent striking against object, initial encounter; Y92.009 Unspecified place in unspecified non-institutional (private) residence as the place of occurrence of the external cause; N28.1 Cyst of kidney, acquired; J44.9 Chronic obstructive pulmonary disease, unspecified; E11.9 Type 2 diabetes mellitus without complications; I12.9 Hypertensive chronic kidney disease with stage 1 through stage 4 chronic kidney disease, or unspecified chronic kidney disease; K21.9 Gastro-esophageal reflux disease without esophagitis; G47.33 Obstructive sleep apnea (adult) (pediatric); E78.5 Hyperlipidemia, unspecified; Z88.8 Allergy status to other drugs, medicaments and biological substances; Z20.822 Contact with and (suspected) exposure to COVID-19; Z79.4 Long term (current) use of insulin; Z79.84 Long term (current) use of oral hypoglycemic drugs; Z79.899 Other long term (current) drug therapy; R09.02 Hypoxemia; N18.30 Chronic kidney disease, stage 3 unspecified; R19.7 Diarrhea, unspecified

== ENCOUNTER → 2021-11-10 | Outpatient (CLI) | payer MEDICARE, OTHER ==
[~2021-11-10] MED LIST changes: +BACITAB PO; +CEFD300C PO; -D31000TA2 PO; +DOXY100C3 PO; +INSUDET SC; +LANTINJ4 SC; +LEVE1INJ5 PO; -LEVO500T3 PO; +LEVO500T4 PO; +METF-818 PO; +NORV5TAB PO; +SODI1TAB6 PO; +VITA100093 PO
== END ==
LOC: M RAD 08:17
PROVIDERS: ATTEND Internal Medicine Hematology & Oncology
DX: K76.0 Fatty (change of) liver, not elsewhere classified (principal); N28.1 Cyst of kidney, acquired

== ENCOUNTER → 2021-12-21 | Outpatient (CLI) | payer MEDICARE, OTHER ==
[~2021-12-21] MED LIST changes: +GNP250TA9 PO; -LEVE1INJ5 PO; +LEVE1INJ5 SUBQ; +LIDOCAINE 1% MDV 20ML VIAL As Ordered ONE
[2021-12-21 08:47] LABS: BASO % 0.6 % (0.0-1.0); EOS # 0.9 10^3/uL (0.0-0.5); EOS % 13.4 % (0.0-3.0); HEMATOCRIT 30.1 % (42.0-52.0); HEMOGLOBIN 9.8 g/dl (13.5-17.5); LYMPH # 1.5 10^3/uL (1.5-5.0); LYMPH % 23.2 % (24.0-44.0); MEAN CORPUSCULAR HEMOGLOBIN 29.5 pg (27.0-33.0); MEAN CORPUSCULAR HGB CONC 32.6 g/dl (32.0-36.5); MEAN CORPUSCULAR VOLUME 90.7 fl (80.0-96.0); MONO # 0.6 10^3/uL (0.0-0.8); MONO % 9.7 % (2.0-8.0); NEUTROPHILS # 3.4 10^3/uL (1.5-8.5); NEUTROPHILS % 52.5 % (36.0-66.0); PLATELET COUNT, AUTOMATED 233 10^3/uL (150-450); RED BLOOD COUNT 3.32 10^6/uL (4.30-6.10); WHITE BLOOD COUNT 6.4 10^3/uL (4.0-10.0)
[2021-12-21 09:35] VITALS: BP 172/84
== END ==
LOC: M IRPRO 07:51
PROVIDERS: ATTEND Internal Medicine Hematology & Oncology
DX: N18.30 Chronic kidney disease, stage 3 unspecified (principal); D63.1 Anemia in chronic kidney disease

== ENCOUNTER → 2022-02-06 | Outpatient (CLI) | payer MEDICARE, OTHER ==
[~2022-02-06] MED LIST changes: +ALBU2.5V10 INH; -ALBU83IN INH; -LIDOCAINE 1% MDV 20ML VIAL As Ordered ONE
== END ==
LOC: M LABSMTC 10:36
PROVIDERS: ATTEND Anesthesiology
DX: Z01.812 Encounter for preprocedural laboratory examination (principal); Z20.822 Contact with and (suspected) exposure to COVID-19

== ENCOUNTER 2022-02-10 07:05 | Day surgery (SDC) | payer MEDICARE, OTHER ==
[~2022-02-10] VITALS: Ht 190.5 cm; Wt 102.2 kg
[~2022-02-10 07:05] MED LIST changes: +NS 1,000 ML IV ONE
[2022-02-10] MEDS ORDERED: propofoL 200 MG/20 ML VIAL As Ordered ONE ×3 (07:57→09:08)
[2022-02-10] MEDS ORDERED: LIDOCAINE 2% INJ 100 MG/5 ML SYRINGE As Ordered ONE (07:57)
[2022-02-10] MEDS ORDERED: fentaNYL 100 MCG/2 ML INJECTION As Ordered ONE (07:58)
[2022-02-10] MEDS ORDERED: LIDOCAINE 2% MDV 20ML VIAL As Ordered ONE (07:59)
[2022-02-10 09:30] VITALS: BP 137/65
== END 2022-02-10 09:40 | disposition home or self-care (01) ==
LOC: M OPP 07:05
PROVIDERS: ATTEND Internal Medicine Gastroenterology
DX: K57.30 Diverticulosis of large intestine without perforation or abscess without bleeding (principal); K64.8 Other hemorrhoids; D50.9 Iron deficiency anemia, unspecified; K31.819 Angiodysplasia of stomach and duodenum without bleeding; Z79.02 Long term (current) use of antithrombotics/antiplatelets; Z79.51 Long term (current) use of inhaled steroids; Z88.8 Allergy status to other drugs, medicaments and biological substances
CPT/HCPCS: 43239; 43255; 45378; 88305; J3010

== ENCOUNTER 2022-02-16 21:01 | Emergency (ER) | payer MEDICARE, OTHER ==
[~2022-02-16] VITALS: Ht 190.5 cm; Wt 105.7 kg
[~2022-02-16 21:01] MED LIST changes: -NS 1,000 ML IV ONE
[2022-02-17 08:02] LABS: BASO # 0.1 10^3/uL (0.0-0.2); BASO % 0.6 % (0.0-1.0); EOS # 1.1 10^3/uL (0.0-0.5); EOS % 12.8 % (0.0-3.0); HEMATOCRIT 27.8 % (42.0-52.0); HEMOGLOBIN 8.6 g/dl (13.5-17.5); LYMPH # 1.3 10^3/uL (1.5-5.0); LYMPH % 14.8 % (24.0-44.0); MEAN CORPUSCULAR HEMOGLOBIN 29.5 pg (27.0-33.0); MEAN CORPUSCULAR HGB CONC 30.9 g/dl (32.0-36.5); MEAN CORPUSCULAR VOLUME 95.2 fl (80.0-96.0); MONO # 0.8 10^3/uL (0.0-0.8); MONO % 8.7 % (2.0-8.0); NEUTROPHILS # 5.5 10^3/uL (1.5-8.5); NEUTROPHILS % 62.5 % (36.0-66.0); PLATELET COUNT, AUTOMATED 287 10^3/uL (150-450); RED BLOOD COUNT 2.92 10^6/uL (4.30-6.10); WHITE BLOOD COUNT 8.9 10^3/uL (4.0-10.0)
[2022-02-17 08:31] LABS: ALBUMIN 3.5 GM/DL (3.2-5.2); ALT/SGPT 30 U/L (12-78); BILIRUBIN,DIRECT < 0.1 MG/DL (0.0-0.2); BILIRUBIN,TOTAL 0.3 MG/DL (0.2-1.0); C REACTIVE PROTEIN QUANTITATIV < 0.30 MG/DL (0.00-0.30); LIPASE 636 U/L (73-393); TOTAL PROTEIN 7.4 GM/DL (6.4-8.2)
[2022-02-17 08:53] LABS: ERYTHROCYTE SEDIMENTATION RATE 67 mm/hr (0-20)
[2022-02-17] MEDS ORDERED: PRED10TA2 PO ×2 (09:58→10:02)
[2022-02-17 10:39] VITALS: BP 130/63
[2022-03-03] MEDS ORDERED: TRIA1CR80 (07:58)
== END 2022-02-17 10:42 | disposition home or self-care (01) ==
LOC: M ED 21:01
DX: L29.9 Pruritus, unspecified (principal); E11.65 Type 2 diabetes mellitus with hyperglycemia; N18.9 Chronic kidney disease, unspecified; R74.8 Abnormal levels of other serum enzymes; I10 Essential (primary) hypertension; K21.9 Gastro-esophageal reflux disease without esophagitis; K57.92 Diverticulitis of intestine, part unspecified, without perforation or abscess without bleeding; E78.5 Hyperlipidemia, unspecified; J44.9 Chronic obstructive pulmonary disease, unspecified; E55.9 Vitamin D deficiency, unspecified; I20.9 Angina pectoris, unspecified; J30.2 Other seasonal allergic rhinitis; Z79.4 Long term (current) use of insulin; Z79.84 Long term (current) use of oral hypoglycemic drugs; Z79.899 Other long term (current) drug therapy; Z88.8 Allergy status to other drugs, medicaments and biological substances

== ENCOUNTER → 2022-03-29 | Outpatient (REF) | payer MEDICARE, OTHER ==
[~2022-03-29] MED LIST changes: +LEVO1TAB39 PO; -LEVO500T4 PO; +PRED10TA2 PO; +TRIA1CR80
== END ==
LOC: M LAB REF 12:47
PROVIDERS: ATTEND Nurse Practitioner
DX: N18.9 Chronic kidney disease, unspecified (principal)

== ENCOUNTER → 2022-04-26 | Outpatient (CLI) | payer MEDICARE, OTHER ==
[~2022-04-26] MED LIST changes: +ISOVUE-370 76% 100ML VIAL As Ordered ONE
== END ==
LOC: M RAD 07:59
PROVIDERS: ATTEND Nurse Practitioner Family
DX: I71.4 Abdominal aortic aneurysm, without rupture (principal)
CPT/HCPCS: 74177; Q9967

== ENCOUNTER → 2022-05-30 | Outpatient (CLI) | payer MEDICARE, OTHER ==
[~2022-05-30] MED LIST changes: -ISOVUE-370 76% 100ML VIAL As Ordered ONE
== END ==
LOC: M RAD 12:49
PROVIDERS: ATTEND Internal Medicine Nephrology
DX: N18.31 Chronic kidney disease, stage 3a (principal); N28.1 Cyst of kidney, acquired

== ENCOUNTER → 2022-05-31 | Outpatient (CLI) | payer MEDICARE, OTHER ==
[2022-05-31 14:58] LABS: HEMATOCRIT 33.1 % (42.0-52.0); HEMOGLOBIN 10.2 g/dl (13.5-17.5); MEAN CORPUSCULAR HEMOGLOBIN 28.1 pg (27.0-33.0); MEAN CORPUSCULAR HGB CONC 30.8 g/dl (32.0-36.5); MEAN CORPUSCULAR VOLUME 91.2 fl (80.0-96.0); PLATELET COUNT, AUTOMATED 238 10^3/uL (150-450); RED BLOOD COUNT 3.63 10^6/uL (4.30-6.10); WHITE BLOOD COUNT 7.6 10^3/uL (4.0-10.0)
[2022-05-31 16:24] LABS: CALCIUM LEVEL 9.3 MG/DL (8.8-10.2); CREATININE FOR GFR 1.44 MG/DL (0.70-1.30); GLOMERULAR FILTRATION RATE 51.6 (>42); POTASSIUM SERUM 4.7 MEQ/L (3.5-5.1)
== END ==
LOC: M PLALAB 09:10
PROVIDERS: ATTEND Physician Assistant
DX: R06.02 Shortness of breath (principal)

== ENCOUNTER → 2022-07-05 | Outpatient (REF) | payer MEDICARE, OTHER ==
[~2022-07-05] MED LIST changes: +ALBU8.5H; +CHLO125TA PO; -DOXY-350 PO; +DOXY-444 PO; +SPIR-10 PO
[2022-07-05 08:43] LABS: BLOOD UREA NITROGEN 23 MG/DL (9-23); CALCIUM LEVEL 9.4 MG/DL (8.3-10.6); CARBON DIOXIDE LEVEL 23 MMOL/L (20-31); CHLORIDE LEVEL 101 MMOL/L (98-107); CREATININE FOR GFR 1.22 MG/DL (0.70-1.30); GLOMERULAR FILTRATION RATE > 60.0 (>42); GLUCOSE, FASTING 273 MG/DL (74-106); POTASSIUM SERUM 4.5 MMOL/L (3.5-5.1); SODIUM LEVEL 134 MMOL/L (136-145)
== END ==
LOC: M LAB REF 07:44
PROVIDERS: ATTEND Physician Assistant
DX: R06.02 Shortness of breath (principal)

== ENCOUNTER → 2022-07-27 | Outpatient (REF) | payer MEDICARE, OTHER ==
[2022-07-27 17:50] LABS: CREATININE, URINE 146.1 MG/DL
== END ==
LOC: M LAB REF 16:54
PROVIDERS: ATTEND Internal Medicine Nephrology
DX: E11.22 Type 2 diabetes mellitus with diabetic chronic kidney disease (principal)

== ENCOUNTER → 2022-09-21 | Outpatient (REF) | payer MEDICARE, OTHER ==
[~2022-09-21] MED LIST changes: +HYDR-3490
[2022-09-21 08:06] LABS: HEMATOCRIT 29.2 % (42.0-52.0); HEMOGLOBIN 9.4 g/dl (13.5-17.5); MEAN CORPUSCULAR HEMOGLOBIN 30.1 pg (27.0-33.0); MEAN CORPUSCULAR HGB CONC 32.2 g/dl (32.0-36.5); MEAN CORPUSCULAR VOLUME 93.6 fl (80.0-96.0); PLATELET COUNT, AUTOMATED 208 10^3/uL (150-450); RED BLOOD COUNT 3.12 10^6/uL (4.30-6.10); WHITE BLOOD COUNT 7.8 10^3/uL (4.0-10.0)
[2022-09-21 09:14] LABS: ALBUMIN 3.2 G/DL (3.2-5.2); ALKALINE PHOSPHATASE 42 U/L (46-116); ALT/SGPT 20 U/L (7.0-40); AST/SGOT 22 U/L (<34); BILIRUBIN,TOTAL 0.3 MG/DL (0.3-1.2); BLOOD UREA NITROGEN 17 MG/DL (9-23); CALCIUM LEVEL 9.8 MG/DL (8.3-10.6); CARBON DIOXIDE LEVEL 25 MMOL/L (20-31); CHLORIDE LEVEL 100 MMOL/L (98-107); CHOLESTEROL LEVEL 114 MG/DL (<200); CREATININE FOR GFR 1.18 MG/DL (0.70-1.30); GLOMERULAR FILTRATION RATE > 60.0 (>42); GLUCOSE, FASTING 433 MG/DL (74-106); HDL CHOLESTEROL 34.5 MG/DL (>40); LDL CHOLESTEROL 31.3 MG/DL (<100); NON-HDL-C 80 MG/DL; POTASSIUM SERUM 4.4 MMOL/L (3.5-5.1); SODIUM LEVEL 133 MMOL/L (136-145); TOTAL PROTEIN 6.6 G/DL (5.7-8.2); TRIGLYCERIDES LEVEL 241 MG/DL (<150)
== END ==
LOC: M LAB REF 07:49
PROVIDERS: ATTEND Physician Assistant
DX: I11.9 Hypertensive heart disease without heart failure (principal); E78.5 Hyperlipidemia, unspecified

== ENCOUNTER → 2022-10-12 | Outpatient (REF) | payer MEDICARE, OTHER ==
[~2022-10-12] MED LIST changes: +INSU100I6 SUBQ; -LEVE1INJ5 SUBQ; +MONT-5 PO; -SING10TA32 PO
[2022-10-12 08:39] LABS: BASO % 0.3 % (0.0-1.0); EOS # 0.8 10^3/uL (0.0-0.5); EOS % 8.2 % (0.0-3.0); HEMATOCRIT 33.5 % (42.0-52.0); HEMOGLOBIN 10.5 g/dl (13.5-17.5); LYMPH # 1.3 10^3/uL (1.5-5.0); LYMPH % 13.1 % (24.0-44.0); MEAN CORPUSCULAR HEMOGLOBIN 29.3 pg (27.0-33.0); MEAN CORPUSCULAR HGB CONC 31.3 g/dl (32.0-36.5); MEAN CORPUSCULAR VOLUME 93.6 fl (80.0-96.0); MONO # 0.7 10^3/uL (0.0-0.8); MONO % 7.5 % (2.0-8.0); NEUTROPHILS # 6.7 10^3/uL (1.5-8.5); NEUTROPHILS % 70.4 % (36.0-66.0); PLATELET COUNT, AUTOMATED 218 10^3/uL (150-450); RED BLOOD COUNT 3.58 10^6/uL (4.30-6.10); WHITE BLOOD COUNT 9.6 10^3/uL (4.0-10.0)
[2022-10-12 08:52] LABS: CREATININE, URINE 80.8 MG/DL
[2022-10-12 08:58] LABS: ALBUMIN 3.3 G/DL (3.2-5.2); ALKALINE PHOSPHATASE 38 U/L (46-116); ALT/SGPT 25 U/L (7.0-40); AST/SGOT 21 U/L (<34); BILIRUBIN,TOTAL 0.3 MG/DL (0.3-1.2); BLOOD UREA NITROGEN 19 MG/DL (9-23); CALCIUM LEVEL 9.9 MG/DL (8.3-10.6); CARBON DIOXIDE LEVEL 26 MMOL/L (20-31); CHLORIDE LEVEL 100 MMOL/L (98-107); CHOLESTEROL LEVEL 132 MG/DL (<200); CREATININE FOR GFR 1.09 MG/DL (0.70-1.30); GLOMERULAR FILTRATION RATE > 60.0 (>42); GLUCOSE, FASTING 232 MG/DL (74-106); HDL CHOLESTEROL 37.7 MG/DL (>40); NON-HDL-C 94 MG/DL; POTASSIUM SERUM 4.3 MMOL/L (3.5-5.1); SODIUM LEVEL 134 MMOL/L (136-145); THYROID STIMULATING HORMONE 3.381 uIU/ML (0.55-4.78)
[2022-10-12 09:17] LABS: MAU/CREAT RATIO 668.3 MCG/MG (0.0-30.0)
[2022-10-12 10:23] LABS: LDL CHOLESTEROL 53.9 MG/DL (<100); TOTAL PROTEIN 6.9 G/DL (5.7-8.2); TRIGLYCERIDES LEVEL 202 MG/DL (<150)
== END ==
LOC: M LAB REF 07:48
PROVIDERS: ATTEND Nurse Practitioner Family
DX: I10 Essential (primary) hypertension (principal); E78.2 Mixed hyperlipidemia

== ENCOUNTER 2022-11-14 03:33 | Emergency (ER) | payer MEDICARE, OTHER ==
[2022-11-14 04:07] LABS: BASO # 0.1 10^3/uL (0.0-0.2); BASO % 0.6 % (0.0-1.0); EOS % 10.7 % (0.0-3.0); HEMOGLOBIN 10.5 g/dl (13.5-17.5); LYMPH # 1.4 10^3/uL (1.5-5.0); LYMPH % 14.8 % (24.0-44.0); MEAN CORPUSCULAR HEMOGLOBIN 30.3 pg (27.0-33.0); MEAN CORPUSCULAR HGB CONC 32.8 g/dl (32.0-36.5); MEAN CORPUSCULAR VOLUME 92.5 fl (80.0-96.0); MONO # 0.8 10^3/uL (0.0-0.8); MONO % 8.6 % (2.0-8.0); NEUTROPHILS % 64.5 % (36.0-66.0); PLATELET COUNT, AUTOMATED 240 10^3/uL (150-450); RED BLOOD COUNT 3.46 10^6/uL (4.30-6.10); WHITE BLOOD COUNT 9.3 10^3/uL (4.0-10.0)
[2022-11-14 04:20] LABS: INR 1.04; PARTIAL THROMBOPLASTIN TIME 21.8 SECONDS (24.8-34.2); PROTHROMBIN TIME 13.8 SECONDS (12.5-14.5)
[2022-11-14 04:32] LABS: CK-MB VALUE MASS 1.1 NG/ML (<3.6)
[2022-11-14 04:36] LABS: MB/CK RELATIVE INDEX 1.15 (< OR =4)
[2022-11-14] MEDS ORDERED: MORPHINE 4 MG/ML 1ML VIAL IV PRN (04:55)
[2022-11-14] MEDS ORDERED: ONDANSETRON 4MG 2ML VIAL IV ONE (05:00)
[2022-11-14 05:33] LABS: LIPASE 53 U/L (12-53)
[2022-11-14 05:35] LABS: CPK CREATINE PHOSPHOKINASE 85 U/L (46-171)
[2022-11-14 05:39] LABS: ALBUMIN 3.3 G/DL (3.2-5.2); ALKALINE PHOSPHATASE 36 U/L (46-116); ALT/SGPT 23 U/L (7.0-40); AST/SGOT 22 U/L (<34); BILIRUBIN,DIRECT < 0.1 MG/DL (<0.4); BILIRUBIN,TOTAL 0.3 MG/DL (0.3-1.2); BLOOD UREA NITROGEN 30 MG/DL (9-23); CALCIUM LEVEL 9.9 MG/DL (8.3-10.6); CARBON DIOXIDE LEVEL 25 MMOL/L (20-31); CHLORIDE LEVEL 99 MMOL/L (98-107); CK-MB VALUE MASS 1.1 NG/ML (<3.6); CREATININE FOR GFR 1.17 MG/DL (0.70-1.30); GLOMERULAR FILTRATION RATE > 60.0 (>42); GLUCOSE, FASTING 220 MG/DL (74-106); MB/CK RELATIVE INDEX 1.29 (< OR =4); POTASSIUM SERUM 4.4 MMOL/L (3.5-5.1); SODIUM LEVEL 132 MMOL/L (136-145); TOTAL PROTEIN 6.6 G/DL (5.7-8.2)
[2022-11-14] MEDS ORDERED: ISOVUE-370 76% 100ML VIAL As Ordered ONE (06:03)
[2022-11-14] MEDS ORDERED: NAPR-837 PO (10:00)
[2022-11-14 10:30] VITALS: BP 133/75
== END 2022-11-14 10:51 | disposition home or self-care (01) ==
LOC: M ED 03:33
DX: I71.40 Abdominal aortic aneurysm, without rupture, unspecified (principal); R07.89 Other chest pain; E11.9 Type 2 diabetes mellitus without complications; K57.92 Diverticulitis of intestine, part unspecified, without perforation or abscess without bleeding; K21.9 Gastro-esophageal reflux disease without esophagitis; D64.9 Anemia, unspecified; N18.30 Chronic kidney disease, stage 3 unspecified; J44.9 Chronic obstructive pulmonary disease, unspecified; Z79.01 Long term (current) use of anticoagulants; Z79.899 Other long term (current) drug therapy; J30.2 Other seasonal allergic rhinitis; Z88.8 Allergy status to other drugs, medicaments and biological substances
CPT/HCPCS: 71045; 71275; 74177; 80048; 80076; 82550; 82553; 83690; 84484; 85025; 85610; 85730; 93005; 93041; 94760; 96374; 96375; 99285; J2405; Q9967

== ENCOUNTER → 2023-04-09 | Outpatient (REF) | payer MEDICARE, OTHER ==
[~2023-04-09] MED LIST changes: +NAPR-837 PO
[2023-04-09 18:44] LABS: PERCENT SATURATION 52.3 % (19.7-50.0)
== END ==
LOC: M LAB REF 17:13
PROVIDERS: ATTEND Internal Medicine Nephrology
DX: D50.9 Iron deficiency anemia, unspecified (principal)

== ENCOUNTER 2023-08-25 23:33 | Emergency (ER) | payer MEDICARE, OTHER ==
[~2023-08-25] VITALS: Ht 190.5 cm; Wt 108.0 kg
[2023-08-25 23:44] VITALS: TEMP 98.5
[2023-08-26] MEDS ORDERED: diazePAM 10MG/2ML SYRINGE IM ONE (00:05)
[2023-08-26] MEDS ORDERED: ISOVUE-370 76% 100ML VIAL As Ordered ONE (02:57)
[2023-08-26] MEDS ORDERED: VALI5TAB PO (03:31)
[2023-08-26 03:45] VITALS: BP 134/68; O2SAT 93
== END 2023-08-26 03:58 | disposition home or self-care (01) ==
LOC: M ED 23:33
DX: M62.838 Other muscle spasm (principal); K21.9 Gastro-esophageal reflux disease without esophagitis; I10 Essential (primary) hypertension; E11.9 Type 2 diabetes mellitus without complications; E78.5 Hyperlipidemia, unspecified; Z79.84 Long term (current) use of oral hypoglycemic drugs; Z88.8 Allergy status to other drugs, medicaments and biological substances; Z79.52 Long term (current) use of systemic steroids; Z79.4 Long term (current) use of insulin; Z79.899 Other long term (current) drug therapy
CPT/HCPCS: 70491; 80047; 96372; 99284; J3360; Q9967

== ENCOUNTER → 2023-09-19 | Outpatient (REF) | payer MEDICARE, OTHER ==
[~2023-09-19] MED LIST changes: +VALI5TAB PO
== END ==
LOC: M LAB REF 16:35
PROVIDERS: ATTEND Physician Assistant
DX: B34.9 Viral infection, unspecified (principal)

== ENCOUNTER 2024-10-08 15:27 | Emergency (ER) | payer MEDICARE, OTHER ==
[~2024-10-08] VITALS: Ht 190.5 cm; Wt 99.7 kg
[~2024-10-08 15:27] MED LIST changes: +DOXY-440 PO; -DOXY-444 PO; +METF-1157 PO; -METF-818 PO; +SEMA0.257; +SEMA1PEN2; +SPIR-10
[2024-10-08 15:30] VITALS: TEMP 97.5
[2024-10-08 16:00] LABS: BASO % 0.3 % (0.0-1.0); EOS % 14.7 % (0.0-3.0); HEMATOCRIT 28.8 % (42.0-52.0); HEMOGLOBIN 8.9 g/dl (13.5-17.5); LYMPH # 1.3 10^3/uL (1.5-5.0); LYMPH % 9.6 % (24.0-44.0); MEAN CORPUSCULAR HEMOGLOBIN 29.9 pg (27.0-33.0); MEAN CORPUSCULAR HGB CONC 30.9 g/dl (32.0-36.5); MEAN CORPUSCULAR VOLUME 96.6 fl (80.0-96.0); MONO # 1.1 10^3/uL (0.0-0.8); MONO % 7.7 % (2.0-8.0); NEUTROPHILS # 9.2 10^3/uL (1.5-8.5); NEUTROPHILS % 66.6 % (36.0-66.0); PLATELET COUNT, AUTOMATED 310 10^3/uL (150-450); RED BLOOD COUNT 2.98 10^6/uL (4.30-6.10); WHITE BLOOD COUNT 13.8 10^3/uL (4.0-10.0)
[2024-10-08 16:28] LABS: LIPASE 60 U/L (12-53)
[2024-10-08 16:30] LABS: ALKALINE PHOSPHATASE 41 U/L (40-129); ALT/SGPT 18 U/L (7.0-40); AST/SGOT 16 U/L (<34); BILIRUBIN,DIRECT < 0.1 MG/DL (<0.4); BILIRUBIN,TOTAL 0.3 MG/DL (0.3-1.2); BLOOD UREA NITROGEN 25 MG/DL (9-23); CALCIUM LEVEL 8.5 MG/DL (8.3-10.6); CARBON DIOXIDE LEVEL 24 MMOL/L (20-31); CHLORIDE LEVEL 105 MMOL/L (98-107); CREATININE FOR GFR 1.43 MG/DL (0.70-1.30); GLOMERULAR FILTRATION RATE 51.8 (>42); GLUCOSE, FASTING 175 MG/DL (74-106); POTASSIUM SERUM 4.4 MMOL/L (3.5-5.1); SODIUM LEVEL 138 MMOL/L (136-145); TOTAL PROTEIN 6.8 G/DL (5.7-8.2)
[2024-10-08 18:54] LABS: CK-MB VALUE MASS < 1.0 NG/ML (<3.6)
[2024-10-08 19:01] LABS: CPK CREATINE PHOSPHOKINASE 38 U/L (46-171); MB/CK RELATIVE INDEX 2.63 (< OR =4)
[2024-10-08] MEDS: ALBUTEROL SULFATE 2.5MG/0.5ML INH NEB SOLN NEB ONE (19:12)
[2024-10-08 19:35] VITALS: O2SAT 99
[2024-10-08 19:38] VITALS: BP 128/59; O2SAT 98
== END 2024-10-08 21:10 | disposition home or self-care (01) ==
LOC: M ED 15:27
DX: J44.9 Chronic obstructive pulmonary disease, unspecified (principal); R19.7 Diarrhea, unspecified; E11.9 Type 2 diabetes mellitus without complications; I12.9 Hypertensive chronic kidney disease with stage 1 through stage 4 chronic kidney disease, or unspecified chronic kidney disease; K21.9 Gastro-esophageal reflux disease without esophagitis; J45.909 Unspecified asthma, uncomplicated; D64.9 Anemia, unspecified; Z79.4 Long term (current) use of insulin; Z79.899 Other long term (current) drug therapy; Z88.8 Allergy status to other drugs, medicaments and biological substances

== ENCOUNTER → 2024-11-06 | Outpatient (CLI) | payer MEDICARE, OTHER ==
[~2024-11-06] MED LIST changes: +GLIP-320 PO; -GLIP10TA18 PO; +SPIR1CAP INH
== END ==
LOC: M PLALAB 09:13
PROVIDERS: ATTEND Physician Assistant
DX: R06.02 Shortness of breath (principal); R60.0 Localized edema

== ENCOUNTER → 2024-11-10 | Outpatient (CLI) | payer MEDICARE, OTHER | LOC: M CARPUL 13:43 | PROVIDERS: ATTEND Physician Assistant | DX: R06.02 Shortness of breath (principal); R60.0 Localized edema; R94.31 Abnormal electrocardiogram [ECG] [EKG] ==

== ENCOUNTER 2025-01-20 10:03 | Day surgery (SDC) | payer MEDICARE, OTHER ==
[~2025-01-20] VITALS: Ht 190.5 cm; Wt 100.1 kg
[~2025-01-20 10:03] MED LIST changes: -HYDR-3490; +PHOS1TAB3 PO; -SEMA1PEN2; +SEMA1PEN2 SC; -SPIR-10
[2025-01-20] MEDS: ALBUTEROL SULFATE 2.5 MG/0.5 ML INH CONCENTRATE NEB SOLN NEB ONE (10:58)
[2025-01-20] MEDS ORDERED: LIDOCAINE 2% 100 MG/5 ML SDV (FOR ANES.) As Ordered ONE (11:46)
[2025-01-20] MEDS ORDERED: GLYCOPYRROLATE INJ 0.2 MG/ML 2 ML VIAL As Ordered ONE (11:46)
[2025-01-20] MEDS ORDERED: propofoL 200 MG/20 ML VIAL As Ordered ONE (11:46)
[2025-01-20 12:35] VITALS: TEMP 97.4
[2025-01-20 13:06] VITALS: BP 146/69; O2SAT 100
[2025-01-26] MEDS ORDERED: SUCR1TAB56 (09:50)
[2025-02-23] MEDS ORDERED: SPIR12.9 (11:33)
== END 2025-01-20 13:16 | disposition home or self-care (01) ==
LOC: M OPP 10:03
PROVIDERS: ATTEND Internal Medicine Gastroenterology
DX: D12.2 Benign neoplasm of ascending colon (principal); D17.5 Benign lipomatous neoplasm of intra-abdominal organs; K64.8 Other hemorrhoids; Q43.8 Other specified congenital malformations of intestine; D50.9 Iron deficiency anemia, unspecified; K31.819 Angiodysplasia of stomach and duodenum without bleeding; G47.30 Sleep apnea, unspecified; Z88.8 Allergy status to other drugs, medicaments and biological substances; Z79.4 Long term (current) use of insulin; Z79.84 Long term (current) use of oral hypoglycemic drugs; Z79.899 Other long term (current) drug therapy; J44.9 Chronic obstructive pulmonary disease, unspecified; Z87.891 Personal history of nicotine dependence
CPT/HCPCS: 43270; 45385; 88305; J1596

== ENCOUNTER 2025-06-02 15:02 | Observation (INO) | payer MEDICARE, OTHER ==
[~2025-06-02] VITALS: Ht 188 cm; Wt 94.8 kg
[~2025-06-02 15:02] MED LIST changes: -COLC0.6T47 PO; +COLC0.6T53 PO; +SPIR12.9 INH; +SUCR1TAB56
[2025-06-02] MEDS: ACETAMINOPHEN 325 MG TAB PO ONE (15:59)
[2025-06-02 16:09] LABS: BASO # 0.0 10^3/uL (0.0-0.2); BASO % 0.2 % (0.0-1.0); EOS # 0.1 10^3/uL (0.0-0.5); EOS % 0.6 % (0.0-3.0); LYMPH # 0.7 10^3/uL (1.5-5.0); LYMPH % 4.6 % (24.0-44.0); MONO # 1.6 10^3/uL (0.0-0.8); MONO % 10.3 % (2.0-8.0); NEUTROPHILS # 12.7 10^3/uL (1.5-8.5); NEUTROPHILS % 83.7 % (36.0-66.0); PLATELET COUNT, AUTOMATED 341 10^3/uL (150-450)
[2025-06-02 16:43] LABS: ALT/SGPT 36.0 U/L (7.0-40); AST/SGOT 42.0 U/L (<34); CALCIUM LEVEL 8.3 MG/DL (8.3-10.6); CARBON DIOXIDE LEVEL 23.0 MMOL/L (20-31); CHLORIDE LEVEL 96.0 MMOL/L (98-107); CREATININE FOR GFR 1.33 MG/DL (0.70-1.30); FREE T4 1.27 NG/DL (0.89-1.76); GLOMERULAR FILTRATION RATE 56.4 (>42); POTASSIUM SERUM 4.0 MMOL/L (3.5-5.1); SODIUM LEVEL 131.0 MMOL/L (136-145)
[2025-06-02] MEDS: AZITHROMYCIN INJ 500 MG, VIAL MATE ADAPTER 1 EACH in NS 250 ML IV ONE (17:21)
[2025-06-02] MEDS: cefTRIAXone SOD 1 GM in DEXTROSE 5% (D5W) ADV/MINI-BAG 50 ML IV ONE (17:21)
[2025-06-02] MEDS ORDERED: GLUCAGON INJ 1 MG VIAL SC PRN (17:50)
[2025-06-02] MEDS ORDERED: DEXTROSE 50% 50 ML SYRINGE IV PRN (17:50)
[2025-06-02] MEDS ORDERED: GLUCOSE 4 GM CHEW PO PRN (17:50)
[2025-06-02] MEDS ORDERED: HOME MED LIST COMPLETE! XX SCH (17:55)
[2025-06-02] MEDS: INSULIN LISPRO (NovoLOG) PER UNIT SC SCH ×2 (18:40→21:23)
[2025-06-02] MEDS: ALBUTEROL SULFATE 2.5 MG/0.5 ML INH CONCENTRATE NEB SOLN NEB SCH (20:20)
[2025-06-02] MEDS: GLYCOPYRROLATE INJ 0.2 MG/ML 2 ML VIAL NEB SCH (20:20)
[2025-06-02 21:21] VITALS: BP 144/73; TEMP 97.9; O2SAT 97
[2025-06-02] MEDS: DOCUSATE SODIUM 100 MG CAPSULE PO SCH (21:22)
[2025-06-02] MEDS: LanTUS (INSULIN GLARGINE INJ) 1 UNITS/0.01 ML SC SCH (21:24)
[2025-06-03 05:31] VITALS: BP 149/77; TEMP 97.3; O2SAT 98
[2025-06-03 06:59] LABS: BASO # 0.0 10^3/uL (0.0-0.2); BASO % 0.1 % (0.0-1.0); EOS # 0.0 10^3/uL (0.0-0.5); EOS % 0.0 % (0.0-3.0); LYMPH # 0.5 10^3/uL (1.5-5.0); LYMPH % 4.1 % (24.0-44.0); MONO # 0.5 10^3/uL (0.0-0.8); MONO % 3.9 % (2.0-8.0); NEUTROPHILS # 10.6 10^3/uL (1.5-8.5); NEUTROPHILS % 91.1 % (36.0-66.0); PLATELET COUNT, AUTOMATED 317 10^3/uL (150-450)
[2025-06-03 07:37] LABS: CALCIUM LEVEL 8.8 MG/DL (8.3-10.6); CARBON DIOXIDE LEVEL 24.0 MMOL/L (20-31); CHLORIDE LEVEL 96.0 MMOL/L (98-107); CREATININE FOR GFR 1.24 MG/DL (0.70-1.30); GLOMERULAR FILTRATION RATE 61.4 (>42); POTASSIUM SERUM 4.1 MMOL/L (3.5-5.1); SODIUM LEVEL 132.0 MMOL/L (136-145)
[2025-06-03] MEDS: LanTUS (INSULIN GLARGINE INJ) 1 UNITS/0.01 ML SC SCH (09:11)
[2025-06-03] MEDS: ENOXAPARIN 40 MG/0.4 ML SYRINGE (J1650 PER 10MG) SC SCH (09:12)
[2025-06-03] MEDS: MONTELUKAST 10 MG TAB PO SCH (09:12)
[2025-06-03 09:13] VITALS: BP 149/77
[2025-06-03] MEDS: SPIRONOLACTONE 12.5MG PER 1/2 TABLET PO SCH (09:13)
[2025-06-03] MEDS: MAGNESIUM OXIDE 400 MG TAB PO SCH (09:14)
[2025-06-03] MEDS: PANTOPRAZOLE 40MG TAB PO SCH (09:14)
[2025-06-03 14:00] VITALS: BP 138/76; TEMP 97.5; O2SAT 97
[2025-06-03] MEDS ORDERED: COLC0.6T53 PO (15:07)
[2025-06-03] MEDS ORDERED: AZIT-12 PO (15:07)
[2025-06-03] MEDS ORDERED: CEFD1CAP9 PO (15:07)
[2025-06-03] MEDS ORDERED: PRED10TA2 PO (15:07)
[2025-06-03] MEDS ORDERED: cefTRIAXone SOD 1 GM in DEXTROSE 5% (D5W) ADV/MINI-BAG 50 ML IV SCH (18:00)
[2025-06-03] MEDS ORDERED: AZITHROMYCIN 250 MG TABLET PO SCH (18:00)
== END 2025-06-03 16:00 | disposition home or self-care (01) ==
LOC: M ED 15:02 → EDBD 15:02 → INTOOBSV 17:50 → M ED INP 17:50 → M MS5PR 21:02
PROVIDERS: ADMIT Internal Medicine Nephrology; ATTEND Internal Medicine Nephrology
DX: J18.9 Pneumonia, unspecified organism (principal); J44.1 Chronic obstructive pulmonary disease with (acute) exacerbation; E87.1 Hypo-osmolality and hyponatremia; M10.071 Idiopathic gout, right ankle and foot; I10 Essential (primary) hypertension; E11.9 Type 2 diabetes mellitus without complications; K57.90 Diverticulosis of intestine, part unspecified, without perforation or abscess without bleeding; K64.9 Unspecified hemorrhoids; K31.819 Angiodysplasia of stomach and duodenum without bleeding; K21.9 Gastro-esophageal reflux disease without esophagitis; R55 Syncope and collapse; Z88.8 Allergy status to other drugs, medicaments and biological substances; N18.30 Chronic kidney disease, stage 3 unspecified; D50.9 Iron deficiency anemia, unspecified; Z79.2 Long term (current) use of antibiotics; Z79.84 Long term (current) use of oral hypoglycemic drugs; Z79.4 Long term (current) use of insulin; Z79.52 Long term (current) use of systemic steroids; Z79.899 Other long term (current) drug therapy
CPT/HCPCS: 36415; 71045; 80048; 80076; 83605; 83880; 84145; 84439; 84443; 85025; 87040; 87070; 87077; 87184; 87205; 87486; 87581; 87633; 87798; 93005; 93041; 94640; 94760; 96365; 96367; 96372; 96375; 96376; 99285; G0378; J0456; J0696; J1100; J1596; J1650; J1815